=== PATIENT | female | born 1945 | race Caucasian/White ===

== ENCOUNTER 2016-08-17 14:49 | Inpatient (IN) | payer OTHER ==
[~2016-08-17] VITALS: Ht 165.1 cm; Wt 81.6 kg
--- NOTE | ~2016-08-17 | CNG ---
[facility] [place] [address] CYTO-NONGYN REPORT PROCEDURE Name: JUANA MADDOX Room #: 442-P ADM IN M.R.#: [id number] Admission: 08/17/16 Date of : 47 Discharge: Report #: [id number] Path Case #: [id number] CYTOPATHOLOGY REPORT COLLECTION DATE: 08/18/2016 RECEIVED DATE: 08/18/2016 SUBMITTING PHYS: Dr. Viktoriya Hu OTHER PHYS: Dr. Jose Alfredo Foss CLINICAL HISTORY: SOA, Pneumonia. SPECIMEN(S) RECEIVED: A.Pleural fluid * * * * * * * * * * * * FINAL DIAGNOSIS: A. Pleural fluid: - No malignant cells identified. Normal and reactive mesothelial cells and predominantly chronic inflammation are present in background debris. COMMENT: Properly controlled immunohistochemical stains are performed on the cell block. Block A1 Calretinin - stains rare scattered mesothelial cells. CD68 - highlights the scattered histocytes. BerEP4 - nonreactive. (CLW:pit; 08/20/2016) PATHOLOGIST: Ivette Callaway M.D. REPORT ELECTRONICALLY SIGNED BY: Ivette Callaway M.D. DATE/TIME: 08/20/2016 23:04 * * * * * * * * * * * * GROSS PATHOLOGY: A. Pleural fluid: The specimen is submitted unfixed, labeled "Juana Maddox". Received by the Cytology Department is 25 mL of cloudy red orange fluid. One ThinPrep slide and a cell block were prepared. (clt 08.18.2016) CLUBHOUSE MANAGER(S): SHAHRAM Nava([facility] INITIAL CPT CODE(S): A; 66181, 61703, 39121, 18508, 79935 Professional services performed by [facility] at [facility] [address] [place] [address] [facility] [address] [place] [address] CYTO-NONGYN REPORT PROCEDURE Name: JUANA MADDOX Reymundo Room #: 442-P ADM IN M.R.#: [id number] Admission: 08/17/16 Date of : 47 Discharge: Report #: [id number] Path Case #: [id number] Technical services performed by [facility] at [address] [place] [address], [address], [place] [address]. [address], [facility] [address] [place] [address] PHONE: [phone] DIRECTOR: Isidro Roa M.D. * * * END OF REPORT * * *
--- NOTE | ~2016-08-17 | CATHLAB ---
[facility] [address] [place] [address] INVASIVE PROCEDURE REPORT Name: JUANITO YODER Room #: 442-P [facility] IN [facility].#: [id number] Admission: 08/17/16 Attend Phys: Jose Alfredo Foss, Discharge: Date of : 47 Date of Service: 08/20/16 1540 Report #: [id number] THIS REPORT FOR: //name// APPROVED REPORT Patient Details Patient Status: In-Patient Room #: The patient is a 71 year-old female Event Personnel Srinivasa Spear Planning Analyst, Mariana Moran RTR Monitor, Drea Shah RN Monitor, Rhonda Nolasco [place], Ariel RN shearer screen measurer and trimmer Performed Art Access - R femoral artery* 12662 Initial Mod Sed Same Phys/QHP Gr5y [id number] Left Heart Cath Coronaries, Bypass Grafts [id number] LHCCORCABG Hemostasis with Manual pressure Indication Unstable angina , Chest pain Risk Factors Hypercholesterolemia, Coronary Artery DiseaseHypertension Procedure Narrative The patient was brought urgently to the Cardiac Catheterization Laboratory and was prepped and draped in a sterile manner. The Right Groin^ was infiltrated with 1% Lidocaine subcutaneous anesthesia. A PINNACLE 4FR Sheath #[id number] sheath was inserted into the RFA^. Coronary angiography was performed using coronary diagnostic catheters. The right coronary system was accessed and visualized with a JR 4 catheter. The left coronary system was accessed and visualized with a JL 5 catheter. The left ventricle was accessed and visualized with a MPA catheter. Left ventricular/Aortic Valve gradient assessed . Hemostasis was obtained with manual pressure following sheath removal without any complications. The patient tolerated the procedure well and there were no complications associated with the procedure. There was no hematoma. Intraoperative Conscious Sedation Sedation start time: 112 Case end Time: 114 Fentanyl 25.0 mcg Versed 1.0 mg [facility] [address] [place] [address] INVASIVE PROCEDURE REPORT Name: JUANITO YODER Room #: 442-P [facility]#: [id number] Admission: 08/17/16 Attend Phys: Jose Alfredo Foss, Discharge: Date of : 47 Date of Service: 08/20/16 1540 Report #: [id number] Fluoro Time: 5.40 minutes Dose: DAP 6917.00 cGycm2 947 mGy Contrast Type and Amount: Visipaque 105 ml Coronary Angiography The patient's coronary anatomy is right dominant. Diagnostic Cath Left Main Moderate distal disease LAD Total occlusion in proximal segment. Patent MATHIAS graft to first diagonal artery and mid LAD, no evidence for occlusive disease within mammary artery. Circumflex Total occlusion in proximal segment. Patent SVG to OM1, no evidence for occlusive disease within vein graft. Partial retrograde filling of distal circumflex. Right Coronary Total occlusion in proximal segment. Total occlusion of vein graft to distal RCA. The distal RCA and branches are partially filled via collateral circulation from the left coronary artery. Hemodynamics The aortic pressure is 124/53 mmHg with a mean of 85 mmHg. The left ventricular pressure is 130/14 mmHg with a mean of mmHg. The left ventricular end diastolic pressure is 24 mmHg. There was no gradient across the aortic valve upon pullback. Pullback from the left ventricle to the aorta revealed no gradient across the aortic valve. Conclusion Coronary anatomy as described above. Recommend medical therapy. Recommendations Medical Therapy <ELECTRONICALLY SIGNED> By: Srinivasa Spear MD 08/20/16 1540 1540 1540 Srinivasa Spear MD /INF
--- NOTE | ~2016-08-17 | EKG ---
[address] [address] ELECTROCARDIOGRAM REPORT Name: JUANITO YODER Room #: 442-[facility] IN ..#: [id number] Admission: 08/17/16 Attend Phys: Jose Alfredo Foss MD Discharge: Date of : 47 Report #: [id number] THIS REPORT FOR: //name// 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 : 1945 Requested By: Bonita Jesus Order Number: [id number] MD: Guerrero Glez Measurements Intervals [place] Rate: 69 P: -26 [place]: 184 QRS: -1 QRSD: 105 T: 154 QT: 460 QTc: 493 Interpretive Statements Sinus rhythm Abnormal T, consider ischemia, lateral leads Compared to ECG 10/08/2015 17:28:33 Prolonged QT interval no longer present T-wave abnormality still present Possible ischemia still present Electronically Signed On 08-18-2016 13:24:23 CDT by Guerrero Glez [email or web address] <ELECTRONICALLY SIGNED> By: Guerrero Glez MD 08/18/16 1324 1034 1034 Guerrero Glez MD /EPI
--- NOTE | ~2016-08-17 | H ---
[facility] [place] [address] HISTORY AND PHYSICAL Name: JUANITO YODER Room #: 442-P ADM IN .R.#: [id number] Admission: 08/17/16 Attend Phys: Jose Alfredo Foss MD Discharge: Date of : 47 Report #: [id number] THIS REPORT FOR: //name// CC: Jose Alfredo Foss DATE OF SERVICE: 08/17/2016 CHIEF COMPLAINT: Continued shortness of breath with even smaller amounts with exertion. HISTORY OF PRESENT ILLNESS: The patient went to [facility] on July the because of shortness of breath. She was found to have a right-sided community-acquired pneumonia and treated appropriately and did definitely improve, although she was still somewhat limited at the time of discharge. As part of her evaluation, an echocardiogram showed normal left ventricular size and function with 60% ejection fraction and mild hypokinesis of the basal mid inferior wall. Wall thickness was moderately increased and findings were consistent with a grade 2 diastolic dysfunction. The left atrium was moderately dilated. The right atrium was mildly dilated and right ventricular function and geometry was normal. She was discharged on albuterol inhaler and azithromycin. She completed those medications, but did not feel really very much better and then presented to my office on 08/14/2016. She declined being readmitted to the hospital and was satisfied by having her Proventil/Ventolin HFA inhaler and azithromycin refilled. However, this morning, on 08/17/2016, she reported progressive shortness of breath with exertion to the dialysis facility staff who in turn notified us. She is now willing to go to the hospital for evaluation without any further resistance. The dialysis staff was asked to remove more fluid than ususal, because: a chest x-ray obtained 08-14-16 compared to the hoptal discharge film showed persistence of the right baseline infiltrate and the new development of a moderate-sized left-sided pleural effusion, a matter that may contribute to her sensation of exertional dyspnea. PAST MEDICAL HISTORY: Significant for a Wallstent in the right superior vena cava for unclear indications in the distant past. Type 2 diabetes with complications; nephropathy, retinopathy and neuropathy; coronary artery bypass grafting approximately 10 years ago, with April 2015 showing placement of a drug-eluting stent at [facility]. She has an ulcer on her right first toe as well as a similar ulcer on her right fifth toe. She has fully functioning left upper arm AV fistula site. She has depression and anxiety along with an exacerbation of her COPD. She is a current smoker. [address] [address] HISTORY AND PHYSICAL Name: JUANITO YODER Room #: 442-P [facility] IN ..#: [id number] Admission: 08/17/16 Attend Phys: Jose Alfredo Foss MD Discharge: Date of : 47 Report #: [id number] She is noncompliant and often doesn't take her insulin. REVIEW OF SYSTEMS: Significant for the HPI with progressive shortness of breath with exertion. She reports some healing of an ulcer in the lateral distal portion of the right foot. SOCIAL HISTORY: She wishes not to be resuscitated. She does not drink alcohlo. She continues to smoke. She lives in her daughter's home. CURRENT MEDICATIONS: Darbepoetin jamar, doxercalciferol (Hectorol) and Ferolact are given IV in the dialysis clinic. Amlodipine 5 mg daily, 81 mg aspirin daily, Nephrocaps daily, calcium carbonate and acid pills, carvedilol 25 mg 1-1/2 tablets twice daily, Sensipar (cinacalcet) 30 mg once daily, clopidogrel 75 mg daily, diphenhydramine 50 mg at bedtime as needed for sleep, fluticasone propionate 50 mcg 2 pills once a day, insulin NPH isophane and regular insulin (70/30) by sliding scale, isosorbide mononitrate 30 mg one daily, Synthroid/levothyroxine 25 mcg one daily, loperamide as needed, lorazepam 1mg for anxiety, nitroglycerin tablets as needed, pravastatin 40 mg once daily, quetiapine 200 mg at bedtime and sertraline 100 mg once daily. PHYSICAL EXAMINATION: GENERAL: Exam shows a 71-year-old woman appearing older than her stated age. She is in no acute distress. Alert and oriented. HEENT: Grossly unremarkable. Chest: lungs have an occassional rhonchus, and breath sounds are diminished. Heart: S1S2 WNL and regular Abdomen: Soft and nontender, without hepatospleenomegaly. EXT: mild tight edema. Right foot wound was photographed by nursing staff. DIAGNOSTIC DATA: Chest x-ray shows new development of a left pleural effusion, along with persistence of the right lower lobe atelectasis/infiltrate. ASSESSMENT: 0. Multifactorial dyspnea on exertion. 1. Persistent infiltrate in the right lower base. 2. New left-sided pleural effusion. 3. Quite possibly the patient has a stable left ventricular cardiac function. 4. Exacerbation of chronic obstructive pulmonary disease. 5. CAD s/p CABG and subsequent stents. 5. Long-standing open right 5th MT ulcer. 6. Noncompliance - the patient often doesn't take her insulin on her. 7. Dialysis. 8. DM with complications of nephropathy, neuropathy, and retinopathy. 9. Other problems in PMH above. [facility] [address] [place] [address] HISTORY AND PHYSICAL Name: JUANITO YODER Room #: 442-P ADM IN M.R.#: [id number] Admission: 08/17/16 Attend Phys: Jose Alfredo Foss MD Discharge: Date of : 47 Report #: [id number] 10. Wallstent right upper SVC. PLAN: She is admitted. She is being observed on telemetry. Further evaluation of pleural fluid in the left space will be obtained with a CT. She will be seen in cardiovascular medicine as well as pulmonary medicine. She will be followed by the nephrology service as well. Wound care service is consulted. She wishes a DNR. By: [id number] Jose Alfredo Foss MD /nt
--- NOTE | ~2016-08-17 | 2DMMODE ---
[facility] [address] [facility] [employer] [place] [address] 2 D/M-MODE ECHOCARDIOGRAM Name: JUANITO YODER Reymundo Room #: 442-P ADM IN .R.#: [id number] Admission: 08/17/16 Attend Phys: Jose Alfredo Foss, Discharge: Date of : 47 Date of Service: 08/18/16 1244 Report #: [id number] THIS REPORT FOR: //name// APPROVED REPORT Study performed: 08/18/2016 11:20:05 EXAM: Comprehensive 2D, Doppler, and color-flow Echocardiogram Patient Location: Echo lab Room #: 442 Other Information Study Quality: Adequate Indications Dyspnea Hx: DM, CABG, COPD 2D Dimensions RVDd: 38.99 mm LVEF(%): 53.79 (>50%) IVSd: 13.81 (7-11mm) LVOT Diam: 20.34 (18-24mm) LVDd: 49.15 mm PWd: 14.17 (7-11mm) Ascending Ao: 40.18 (22-36mm) LVDs: 35.46 (25-40mm) Aortic Root: 34.46 mm Mora's LVEF: 53.79 % Volumes Left Atrial Volume (Systole) Single Plane 4CH: 75.83 mL Single Plane 2CH: 72.76 mL LA ESV Index: 40.00 mL/m2 Aortic Valve AoV Peak Melvin.: 1.85 m/s AO Peak Gr.: 13.76 mmHg LVOT Max P.53 mmHg LVOT Max V: 1.18 m/s MILAGROS Vmax: 2.06 cm2 Mitral Valve E/A Ratio: 1.3 MV Decel. Time: 194.86 ms MV E Max Melvin.: 1.15 m/s MV A Melvin.: 0.86 m/s MV PHT: 56.51 ms [facility] [place] [address] 2 D/M-MODE ECHOCARDIOGRAM Name: JUANITO YODER Room #: 442-P [facility].#: [id number] Admission: 08/17/16 Attend Phys: Jose Alfredo Foss, Discharge: Date of : 47 Date of Service: 08/18/16 1244 Report #: [id number] IVRT: 69.20 ms Pulmonary Valve PV Peak Melvin.: 1.06 m/s PV Peak Gr.: 4.50 mmHg Pulmonary Vein P Vein S: 0.39 m/s P Vein D: 0.52 m/s P Vein S/D Ratio: 0.75 Tricuspid Valve TR Peak Melvin.: 3.20 m/s RAP Estimate: 5.00 mmHg TR Peak Gr.: 41.04 mmHg PA Pressure: 46.00 mmHg Left Ventricle The left ventricle is normal size. Mild concentric left ventricular hypertrophy. Left ventricular systolic function is normal. LVEF is 60%. Grade II - pseudonormal filling dynamics. Right Ventricle Right ventricle is mildly dilated. Right ventricular systolic function is grossly normal. Atria Left atrium is moderately dilated. Right atrium is mildly dilated. Aortic Valve Aortic valve is calcified. Trace aortic regurgitation. There is no aortic valvular stenosis. Mitral Valve Mitral valve leaflets are thickened and calcified. Mild mitral regurgitation. No evidence of mitral valve stenosis. Tricuspid Valve The tricuspid valve is normal in structure. There is moderate tricuspid regurgitation. The right atrial pressure is estimated at 5 mmHg. There is moderate pulmonary hypertension with an estimated PAP of 45-50mmHg. Pulmonic Valve The pulmonary valve is normal in structure. Mild pulmonic regurgitation. [facility] [address] [place] [address] 2 D/M-MODE ECHOCARDIOGRAM Name: PARESH,JUANITO J Room #: 442-P [facility] IN .R.#: [id number] Admission: 08/17/16 Attend Phys: Jose Alfredo Foss, Discharge: Date of : 47 Date of Service: 08/18/16 1244 Report #: [id number] Great Vessels The aortic root is normal in size. The ascending aorta is mildly dilated. IVC is normal in size and collapses >50% with inspiration. Pericardium There is no pericardial effusion. Right pleural effusion noted. <Conclusion> The left ventricle is normal size. Left ventricular systolic function is normal. Grade II - pseudonormal filling dynamics. Mild concentric left ventricular hypertrophy. Right ventricle is mildly dilated. Left atrium is moderately dilated. Right atrium is mildly dilated. Aortic valve is calcified. There is no aortic valvular stenosis. Mitral valve leaflets are thickened and calcified. Mild mitral regurgitation. There is moderate tricuspid regurgitation. The right atrial pressure is estimated at 5 mmHg. There is moderate pulmonary hypertension with an estimated PAP of 45-50mmHg. <ELECTRONICALLY SIGNED> By: Srinivasa Spear MD 08/18/16 1244 1244 1244 Sriinvasa Spear MD /INF
[~2016-08-17 14:49] MED LIST: ALBUTEROL2.5 MG/0.5 IH; ALLEGRA-D 12 H1 EACH PO; ANALGESIC325 MG PO; ASPIR 8181 MG PO; ASPIRIN325 PO; ATIVAN1 MG PO; BENADRYL25 MG PO; BETADINE240 ML TOP; BYSTOLIC 5 MG5 M1 PO; COREG PO; COREG25 MG PO; DUONEB 2.5-0.5 M3 ML INH; FOSRENOL1000 MG PO; IMODIUM MULTI-1 EACH PO; LIPITOR80 MG PO; LISINOPRIL40 MG PO; LISINOPRIL5 MG PO; MEDLISTUNAVAIL; NITROGLYCERIN0.4 MG SL; NOVOLIN 70100 UNIT/2 SQ; NOVOLIN N100 UNIT/3 SUBQ; NOVOLOG100 UNIT/1 SUBQ; PERCOCET 5-3251 EACH; PLAVIX 75 MG TA75 M1 PO; PREDNISONE 10 M10 MG PO; RENAL CAPS SOFTG1 MG PO; RENVELA800 MG PO; SENSIPAR90 MG PO; SEROQUEL 50 MG50 MG PO; SERTRALINE HCL100 MG PO; TRAZODONE 50 MG50 MG OR; TUMS PO; VITAMIN D1000 UNI1 PO; ZEMPLAR2 MCG PO
[2016-08-17 16:40] VITALS: BP 164/56
[2016-08-17] MEDS ORDERED: LEVOTHYROXIN0.025 MG PO (17:56)
[2016-08-17] MEDS ORDERED: IMDUR 30 MG TAB30 M1 PO (17:57)
[2016-08-17 19:44] VITALS: BP 153/61
[2016-08-18 04:29] VITALS: BP 179/76
[2016-08-18 04:59] LABS: HEMATOCRIT 29.6 % (37.0-47.0); HEMOGLOBIN 9.9 gm/dL (12.0-15.0); MCH 31.6 pg (26.0-34.0); MCHC 33.2 g/dL (28.0-37.0); MCV 95.1 fL (80.0-100.0); RBC 3.12 mil/uL (4.20-5.00); RDW 15.1 % (10.5-14.5); WBC 7.2 thou/uL (4.0-11.0)
[2016-08-18 05:09] LABS: ALBUMIN 2.7 g/dL (3.4-5.0); ALKALINE PHOSPHATASE 101 U/L (46-116); ANION GAP 9 mmol/L (7-16); BUN 23 mg/dL (7-18); CALCIUM 8.4 mg/dL (8.5-10.1); CHLORIDE 96 mmol/L (98-107); CO2 31 mmol/L (21-32); CREATININE 3.7 mg/dL (0.6-1.0); GLUCOSE 115 mg/dL (74-106); POTASSIUM 3.6 mmol/L (3.5-5.1); SGOT 12 U/L (15-37); SGPT 14 U/L (30-65); SODIUM 136 mmol/L (136-145); TOTAL BILIRUBIN 0.2 mg/dL (<0.1-1.0); TOTAL PROTEIN 6.6 g/dL (6.4-8.2); TROPONIN-I < 0.04 ng/mL (<0.04-0.07)
[2016-08-18 08:00] VITALS: BP 172/77
[2016-08-18 09:55] LABS: CHOLESTEROL 156 mg/dL (<200); HDL CHOLESTEROL 21 mg/dL (>40); LDL CHOLESTEROL 87 mg/dL (<100); TC:HDL 7.4 Ratio (Not establshd); TRIGLYCERIDE 241 mg/dL (<150); VLDL 48 mg/dL (<40)
[2016-08-18 11:22] LABS: APTT 29.4 Seconds (24.5-32.8); PROTIME 10.8 Seconds (9.3-11.4)
[2016-08-18 13:53] LABS: CLARITY CLOUDY; COLOR ORANGE; TOTAL VOLUME 53 mL
[2016-08-18 14:16] LABS: BF NUCLEATED CELLS 1120; BF RBC 10928
[2016-08-18 14:35] LABS: MANUAL DIFF YES
[2016-08-18 14:36] LABS: BF MACROPHAGE 23; BF NEUTROPHILS 18
[2016-08-18 16:00] VITALS: BP 138/61
[2016-08-18 20:25] VITALS: BP 137/66
[2016-08-19 04:50] VITALS: BP 130/74
[2016-08-19 05:44] LABS: HEMATOCRIT 27.7 % (37.0-47.0); HEMOGLOBIN 9.2 gm/dL (12.0-15.0); MCH 31.6 pg (26.0-34.0); MCHC 33.3 g/dL (28.0-37.0); MCV 94.9 fL (80.0-100.0); RBC 2.92 mil/uL (4.20-5.00); RDW 15.3 % (10.5-14.5); WBC 6.6 thou/uL (4.0-11.0)
[2016-08-19 05:59] LABS: ALBUMIN 2.6 g/dL (3.4-5.0); CALCIUM 7.7 mg/dL (8.5-10.1); PHOSPHORUS 5.7 mg/dL (2.5-4.9); POTASSIUM 3.8 mmol/L (3.5-5.1)
[2016-08-19 06:00] LABS: CREATININE 5.7 mg/dL (0.6-1.0)
[2016-08-19 12:09] LABS: BODY FLUID ALBUMIN 2.2 g/dL (()); BODY FLUID AMYLASE 41 U/L (()); BODY FLUID GLUCOSE 238 mg/dL (()); BODY FLUID LDH 90 IU/L (()); BODY FLUID PROTEIN 3.6 g/dL (())
[2016-08-19 16:38] VITALS: BP 114/59
[2016-08-19 20:07] LABS: HEP B SURFACE Ab(ANTI-HBS Non Reactive (())
[2016-08-19 20:22] VITALS: BP 133/58
[2016-08-20 03:14] LABS: GLYCOHEMOGLOBIN (HGB A1C) 8.3 % (4.8-5.6)
[2016-08-20 05:40] VITALS: BP 127/63
[2016-08-20 06:39] LABS: HEMATOCRIT 27.7 % (37.0-47.0); HEMOGLOBIN 9.3 gm/dL (12.0-15.0); MCH 31.5 pg (26.0-34.0); MCHC 33.5 g/dL (28.0-37.0); RBC 2.94 mil/uL (4.20-5.00); RDW 15.2 % (10.5-14.5); WBC 5.9 thou/uL (4.0-11.0)
[2016-08-20 06:46] LABS: CALCIUM 7.9 mg/dL (8.5-10.1)
[2016-08-20 06:47] LABS: CREATININE 3.5 mg/dL (0.6-1.0)
[2016-08-20 07:40] VITALS: BP 131/61
[2016-08-20 12:30] VITALS: BP 138/58
[2016-08-20 17:09] VITALS: BP 154/69
[2016-08-20 19:40] VITALS: BP 126/52
[2016-08-21 01:55] VITALS: BP 137/55
[2016-08-21 04:40] VITALS: BP 134/52
[2016-08-21 05:56] LABS: HEMATOCRIT 28.2 % (37.0-47.0); HEMOGLOBIN 9.5 gm/dL (12.0-15.0); MCH 31.7 pg (26.0-34.0); MCHC 33.5 g/dL (28.0-37.0); MCV 94.7 fL (80.0-100.0); RBC 2.98 mil/uL (4.20-5.00); RDW 14.8 % (10.5-14.5); WBC 5.3 thou/uL (4.0-11.0)
[2016-08-21 06:12] LABS: ALBUMIN 2.6 g/dL (3.4-5.0); CALCIUM 8.3 mg/dL (8.5-10.1); PHOSPHORUS 5.5 mg/dL (2.5-4.9); POTASSIUM 4.8 mmol/L (3.5-5.1)
[2016-08-21 06:13] LABS: CREATININE 5.4 mg/dL (0.6-1.0)
[2016-08-21 11:35] VITALS: BP 160/60
[2016-08-21 15:40] VITALS: BP 143/60
[2016-08-21] MEDS ORDERED: AUGMENTIN 500-1 EACH PO (18:09)
[2016-08-21] MEDS ORDERED: SEROQUEL 50 MG50 MG PO (18:09)
[2016-08-21] MEDS ORDERED: IMDUR 30 MG TAB30 M1 PO (18:09)
[2016-08-21] MEDS ORDERED: NOVOLOG MI100 UNIT/M INJECTION (18:25)
[2016-08-21 20:04] VITALS: BP 143/60
[2016-08-21 20:32] VITALS: BP 137/52
== END 2016-08-22 02:00 | disposition home or self-care (01) | DRG 286 ==
LOC: 4S 14:49
PROVIDERS: Internal Medicine; Internal Medicine Nephrology; Internal Medicine Pulmonary Disease; Nurse Practitioner Gerontology
PROC: BB4BZZZ Ultrasonography of Pleura (ICD-10-PCS; 2016-08-18)
PROC: 0W993ZZ Drainage of Right Pleural Cavity, Percutaneous Approach (ICD-10-PCS; 2016-08-18)
PROC: 5A1D60Z (ICD-10-PCS; 2016-08-19)
PROC: B2111ZZ Fluoroscopy of Multiple Coronary Arteries using Low Osmolar Contrast (ICD-10-PCS; principal; 2016-08-20)
PROC: 4A023N7 Measurement of Cardiac Sampling and Pressure, Left Heart, Percutaneous Approach (ICD-10-PCS; principal; 2016-08-20)
PROC: B21F1ZZ Fluoroscopy of Other Bypass Graft using Low Osmolar Contrast (ICD-10-PCS; principal; 2016-08-20)
DX: I25.110 Atherosclerotic heart disease of native coronary artery with unstable angina pectoris (principal); N18.6 End stage renal disease; J18.1 Lobar pneumonia, unspecified organism; E43 Unspecified severe protein-calorie malnutrition; J44.0 Chronic obstructive pulmonary disease with (acute) lower respiratory infection; I12.0 Hypertensive chronic kidney disease with stage 5 chronic kidney disease or end stage renal disease; J90 Pleural effusion, not elsewhere classified; J98.11 Atelectasis; J44.1 Chronic obstructive pulmonary disease with (acute) exacerbation; E11.40 Type 2 diabetes mellitus with diabetic neuropathy, unspecified; E11.319 Type 2 diabetes mellitus with unspecified diabetic retinopathy without macular edema; E78.5 Hyperlipidemia, unspecified; F17.210 Nicotine dependence, cigarettes, uncomplicated; E11.51 Type 2 diabetes mellitus with diabetic peripheral angiopathy without gangrene; E11.22 Type 2 diabetes mellitus with diabetic chronic kidney disease; D63.8 Anemia in other chronic diseases classified elsewhere; E11.621 Type 2 diabetes mellitus with foot ulcer; Z68.30 Body mass index [BMI] 30.0-30.9, adult; Z95.1 Presence of aortocoronary bypass graft; Z98.62 Peripheral vascular angioplasty status; Z91.19 Patient's noncompliance with other medical treatment and regimen; Z88.6 Allergy status to analgesic agent; Z88.8 Allergy status to other drugs, medicaments and biological substances; Z79.4 Long term (current) use of insulin; Z79.82 Long term (current) use of aspirin; Z79.899 Other long term (current) drug therapy; Z99.81 Dependence on supplemental oxygen; Z99.2 Dependence on renal dialysis; Z66 Do not resuscitate
CPT/HCPCS: 10100; 32100

== ENCOUNTER → 2016-09-10 | Outpatient (CLI) | payer OTHER ==
[~2016-09-10] MED LIST changes: +AUGMENTIN 500-1 EACH PO; +IMDUR 30 MG TAB30 M1 PO; +LEVOTHYROXIN0.025 MG PO; +NOVOLOG MI100 UNIT/M INJECTION
== END ==
LOC: HYPER 06:54
DX: E11.621 Type 2 diabetes mellitus with foot ulcer (principal); L97.512 Non-pressure chronic ulcer of other part of right foot with fat layer exposed; E11.40 Type 2 diabetes mellitus with diabetic neuropathy, unspecified; E11.311 Type 2 diabetes mellitus with unspecified diabetic retinopathy with macular edema; E11.69 Type 2 diabetes mellitus with other specified complication; M86.9 Osteomyelitis, unspecified; E11.22 Type 2 diabetes mellitus with diabetic chronic kidney disease; N18.6 End stage renal disease; I25.10 Atherosclerotic heart disease of native coronary artery without angina pectoris; E11.51 Type 2 diabetes mellitus with diabetic peripheral angiopathy without gangrene; M19.90 Unspecified osteoarthritis, unspecified site; F32.9 Major depressive disorder, single episode, unspecified; F17.200 Nicotine dependence, unspecified, uncomplicated; F41.9 Anxiety disorder, unspecified; Z95.1 Presence of aortocoronary bypass graft; Z99.2 Dependence on renal dialysis; Z86.14 Personal history of Methicillin resistant Staphylococcus aureus infection; Z96.612 Presence of left artificial shoulder joint; Z90.710 Acquired absence of both cervix and uterus; Z72.89 Other problems related to lifestyle

== ENCOUNTER → 2016-10-14 | Outpatient (CLI) | payer OTHER | LOC: HYPER 09-24 07:04 | DX: E11.621 Type 2 diabetes mellitus with foot ulcer (principal); L97.512 Non-pressure chronic ulcer of other part of right foot with fat layer exposed; E11.40 Type 2 diabetes mellitus with diabetic neuropathy, unspecified; E11.311 Type 2 diabetes mellitus with unspecified diabetic retinopathy with macular edema; E11.22 Type 2 diabetes mellitus with diabetic chronic kidney disease; N18.6 End stage renal disease; Z99.2 Dependence on renal dialysis; E11.69 Type 2 diabetes mellitus with other specified complication; M86.68 Other chronic osteomyelitis, other site; F32.9 Major depressive disorder, single episode, unspecified; F41.9 Anxiety disorder, unspecified; I25.10 Atherosclerotic heart disease of native coronary artery without angina pectoris; E11.51 Type 2 diabetes mellitus with diabetic peripheral angiopathy without gangrene; M19.90 Unspecified osteoarthritis, unspecified site; F17.210 Nicotine dependence, cigarettes, uncomplicated; Z86.14 Personal history of Methicillin resistant Staphylococcus aureus infection; Z95.1 Presence of aortocoronary bypass graft; Z90.710 Acquired absence of both cervix and uterus; Z72.89 Other problems related to lifestyle ==

== ENCOUNTER → 2016-11-11 | Outpatient (CLI) | payer OTHER | LOC: HYPER 07:06 | DX: E11.621 Type 2 diabetes mellitus with foot ulcer (principal); L97.512 Non-pressure chronic ulcer of other part of right foot with fat layer exposed; E11.40 Type 2 diabetes mellitus with diabetic neuropathy, unspecified; E11.311 Type 2 diabetes mellitus with unspecified diabetic retinopathy with macular edema; E11.22 Type 2 diabetes mellitus with diabetic chronic kidney disease; N18.6 End stage renal disease; E11.69 Type 2 diabetes mellitus with other specified complication; M86.9 Osteomyelitis, unspecified; I25.10 Atherosclerotic heart disease of native coronary artery without angina pectoris; E11.51 Type 2 diabetes mellitus with diabetic peripheral angiopathy without gangrene; M19.90 Unspecified osteoarthritis, unspecified site; F17.210 Nicotine dependence, cigarettes, uncomplicated; F32.9 Major depressive disorder, single episode, unspecified; F41.9 Anxiety disorder, unspecified; Z86.14 Personal history of Methicillin resistant Staphylococcus aureus infection; Z99.2 Dependence on renal dialysis; Z95.1 Presence of aortocoronary bypass graft; Z96.612 Presence of left artificial shoulder joint; Z90.710 Acquired absence of both cervix and uterus; Z72.89 Other problems related to lifestyle ==

== ENCOUNTER → 2016-11-25 | Outpatient (CLI) | payer OTHER | LOC: RAD 12:13 | DX: J90 Pleural effusion, not elsewhere classified (principal); J98.11 Atelectasis ==

== ENCOUNTER → 2016-11-25 | Outpatient (CLI) | payer OTHER | LOC: HYPER 07:07 | DX: E11.621 Type 2 diabetes mellitus with foot ulcer (principal); L97.512 Non-pressure chronic ulcer of other part of right foot with fat layer exposed; E11.40 Type 2 diabetes mellitus with diabetic neuropathy, unspecified; E11.319 Type 2 diabetes mellitus with unspecified diabetic retinopathy without macular edema; E11.69 Type 2 diabetes mellitus with other specified complication; M86.9 Osteomyelitis, unspecified; I25.10 Atherosclerotic heart disease of native coronary artery without angina pectoris; E11.51 Type 2 diabetes mellitus with diabetic peripheral angiopathy without gangrene; M19.90 Unspecified osteoarthritis, unspecified site; E11.22 Type 2 diabetes mellitus with diabetic chronic kidney disease; N18.6 End stage renal disease; F17.210 Nicotine dependence, cigarettes, uncomplicated; F41.9 Anxiety disorder, unspecified; F32.9 Major depressive disorder, single episode, unspecified; Z99.2 Dependence on renal dialysis; Z96.612 Presence of left artificial shoulder joint; Z86.14 Personal history of Methicillin resistant Staphylococcus aureus infection; Z95.1 Presence of aortocoronary bypass graft; Z90.710 Acquired absence of both cervix and uterus; Z72.89 Other problems related to lifestyle ==

== ENCOUNTER → 2016-12-23 | Outpatient (CLI) | payer OTHER | LOC: HYPER 07:11 | DX: E11.621 Type 2 diabetes mellitus with foot ulcer (principal); L97.512 Non-pressure chronic ulcer of other part of right foot with fat layer exposed; E11.40 Type 2 diabetes mellitus with diabetic neuropathy, unspecified; E11.22 Type 2 diabetes mellitus with diabetic chronic kidney disease; N18.6 End stage renal disease; Z99.2 Dependence on renal dialysis; E11.319 Type 2 diabetes mellitus with unspecified diabetic retinopathy without macular edema; E11.69 Type 2 diabetes mellitus with other specified complication; M86.8X8 Other osteomyelitis, other site; F32.9 Major depressive disorder, single episode, unspecified; F41.9 Anxiety disorder, unspecified; I25.10 Atherosclerotic heart disease of native coronary artery without angina pectoris; E11.51 Type 2 diabetes mellitus with diabetic peripheral angiopathy without gangrene; M19.90 Unspecified osteoarthritis, unspecified site; Z86.14 Personal history of Methicillin resistant Staphylococcus aureus infection; F17.210 Nicotine dependence, cigarettes, uncomplicated; Z72.89 Other problems related to lifestyle ==

== ENCOUNTER → 2017-01-26 | Outpatient (CLI) | payer OTHER | LOC: RAD 12:07 | DX: J90 Pleural effusion, not elsewhere classified (principal); J98.11 Atelectasis ==

== ENCOUNTER → 2017-02-25 | Outpatient (CLI) | payer OTHER ==
[~2017-02-25] MED LIST changes: +LEVAQUIN 500 M500 M3 PO; +PREDNISONE50 MG PO; +PROAIR HFA8.5 GM INH; +TUSSIONEX PENN115 ML PO
== END ==
LOC: HYPER 01-12 06:45
DX: E11.621 Type 2 diabetes mellitus with foot ulcer (principal); L97.512 Non-pressure chronic ulcer of other part of right foot with fat layer exposed; E11.40 Type 2 diabetes mellitus with diabetic neuropathy, unspecified; E11.22 Type 2 diabetes mellitus with diabetic chronic kidney disease; N18.6 End stage renal disease; E11.319 Type 2 diabetes mellitus with unspecified diabetic retinopathy without macular edema; E11.69 Type 2 diabetes mellitus with other specified complication; M86.9 Osteomyelitis, unspecified; I25.10 Atherosclerotic heart disease of native coronary artery without angina pectoris; S01.80XA Unspecified open wound of other part of head, initial encounter; E11.51 Type 2 diabetes mellitus with diabetic peripheral angiopathy without gangrene; M19.90 Unspecified osteoarthritis, unspecified site; F32.9 Major depressive disorder, single episode, unspecified; F41.9 Anxiety disorder, unspecified; F17.210 Nicotine dependence, cigarettes, uncomplicated; Z99.2 Dependence on renal dialysis; Z95.1 Presence of aortocoronary bypass graft; Z96.612 Presence of left artificial shoulder joint; Z90.710 Acquired absence of both cervix and uterus; Z72.89 Other problems related to lifestyle; X58.XXXA Exposure to other specified factors, initial encounter; Y93.89 Activity, other specified; Y92.89 Other specified places as the place of occurrence of the external cause

== ENCOUNTER → 2017-03-22 | Outpatient (CLI) | payer OTHER | LOC: HYPER 03-18 15:41 | DX: E11.621 Type 2 diabetes mellitus with foot ulcer (principal); L97.512 Non-pressure chronic ulcer of other part of right foot with fat layer exposed; S01.80XD Unspecified open wound of other part of head, subsequent encounter; E11.40 Type 2 diabetes mellitus with diabetic neuropathy, unspecified; E11.311 Type 2 diabetes mellitus with unspecified diabetic retinopathy with macular edema; E11.69 Type 2 diabetes mellitus with other specified complication; M86.8X7 Other osteomyelitis, ankle and foot; E11.51 Type 2 diabetes mellitus with diabetic peripheral angiopathy without gangrene; I25.10 Atherosclerotic heart disease of native coronary artery without angina pectoris; N18.6 End stage renal disease; M19.90 Unspecified osteoarthritis, unspecified site; F17.210 Nicotine dependence, cigarettes, uncomplicated; F41.9 Anxiety disorder, unspecified; F32.9 Major depressive disorder, single episode, unspecified; Z90.710 Acquired absence of both cervix and uterus; Z72.89 Other problems related to lifestyle; Z99.2 Dependence on renal dialysis; X58.XXXD Exposure to other specified factors, subsequent encounter ==

== ENCOUNTER 2017-05-15 03:01 | Emergency (ER) | payer OTHER ==
[~2017-05-15] VITALS: Ht 165.1 cm; Wt 81.7 kg
[~2017-05-15 03:01] MED LIST changes: -LEVAQUIN 500 M500 M3 PO; -PREDNISONE50 MG PO; -PROAIR HFA8.5 GM INH; -TUSSIONEX PENN115 ML PO
[2017-05-15 03:37] LABS: ABSOLUTE NEUTROPHILS 7.4 thou/uL (1.4-8.2); BASOPHILS 0.6 % (0.0-2.0); EOSINOPHILS 6.2 % (0.0-3.0); HEMATOCRIT 34.6 % (37.0-47.0); HEMOGLOBIN 11.3 gm/dL (12.0-15.0); MCH 32.3 pg (26.0-34.0); MCHC 32.7 g/dL (28.0-37.0); MCV 98.5 fL (80.0-100.0); PLATELET COUNT 102 thou/uL (150-400); POLYS 80.2 % (36.0-66.0); RBC 3.51 mil/uL (4.20-5.00); RDW 19.6 % (10.5-14.5); WBC 9.3 thou/uL (4.0-11.0)
[2017-05-15 03:44] LABS: ANION GAP 9 mmol/L (7-16); BUN 21 mg/dL (7-18); CALCIUM 8.6 mg/dL (8.5-10.1); CHLORIDE 95 mmol/L (98-107); CO2 29 mmol/L (21-32); CREATININE 3.7 mg/dL (0.6-1.0); GLUCOSE 251 mg/dL (74-106); POTASSIUM 5.1 mmol/L (3.5-5.1); SODIUM 133 mmol/L (136-145)
[2017-05-15 03:53] LABS: TROPONIN-I < 0.04 ng/mL (<0.06)
[2017-05-15] MEDS ORDERED: TUSSIONEX PENN115 ML PO (05:40)
[2017-05-15] MEDS ORDERED: PROAIR HFA8.5 GM INH (05:40)
[2017-05-15] MEDS ORDERED: PREDNISONE50 MG PO (05:40)
[2017-05-15 06:19] VITALS: BP 149/65
== END 2017-05-15 06:21 | disposition home or self-care (01) ==
LOC: ER 03:01
PROVIDERS: Emergency Medicine
DX: J06.9 Acute upper respiratory infection, unspecified (principal); J98.01 Acute bronchospasm; F41.9 Anxiety disorder, unspecified; F32.9 Major depressive disorder, single episode, unspecified; I25.10 Atherosclerotic heart disease of native coronary artery without angina pectoris; E78.5 Hyperlipidemia, unspecified; G62.9 Polyneuropathy, unspecified; I12.0 Hypertensive chronic kidney disease with stage 5 chronic kidney disease or end stage renal disease; E11.22 Type 2 diabetes mellitus with diabetic chronic kidney disease; N18.6 End stage renal disease; E11.42 Type 2 diabetes mellitus with diabetic polyneuropathy; F17.210 Nicotine dependence, cigarettes, uncomplicated; Z86.2 Personal history of diseases of the blood and blood-forming organs and certain disorders involving the immune mechanism; Z90.49 Acquired absence of other specified parts of digestive tract; Z88.5 Allergy status to narcotic agent; Z88.6 Allergy status to analgesic agent; Z88.8 Allergy status to other drugs, medicaments and biological substances

== ENCOUNTER 2017-05-25 20:32 | Inpatient (IN) | payer OTHER ==
[~2017-05-25] VITALS: Ht 165.1 cm; Wt 82.6 kg
--- NOTE | ~2017-05-25 | EKG ---
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 : 1945 Requested By: Jose Alfredo Foss Order Number: [id number] MD: Francisco Jeffery Measurements Intervals [place] Rate: 101 P: 50 [place]: 196 QRS: 13 QRSD: 101 T: 163 QT: 381 QTc: 494 Interpretive Statements Sinus tachycardia Multiple ectopic complexes Nonspecific repol abnormality, diffuse leads Compared to ECG 05/25/2017 20:33:27 [place] shifted rightward junctional rhythm no longer present nonspecific change in the ST and T-wave segments Electronically Signed On 05-30-2017 13:01:09 CDT by Francisco Jeffery [email or web address] <ELECTRONICALLY SIGNED> By: Francisco Jeffery MD, [facility] 05/30/17 1301 1703 1703 Francisco Jeffery MD, [facility] /EPI
--- NOTE | ~2017-05-25 | HC ---
[facility] [place] [address] CONSULTATION Name: JUANITO YODER Room #: 236-P [facility] IN ..#: [id number] Admission: 05/25/17 Attend Phys: Jose Alfredo Foss MD Discharge: Date of : 47 Report #: [id number] THIS REPORT FOR: //name// CC: Jose Alfredo Foss DATE OF SERVICE: 05/26/2017 INFECTIOUS DISEASE CONSULTATION REASON FOR CONSULTATION: Possible left lower lobe pneumonia. HISTORY OF PRESENT ILLNESS: A 72-year-old white woman admitted through the Emergency Room with history of feeling extremely weak and coughing up some yellowish phlegm. The patient's chest x-ray revealed possible left lower lobe infiltrate, not present on 05/15/2017. The patient apparently failed to show up for her hemodialysis on Wednesday. Today, she had early dialysis and she is feeling better. Denies having fever, nausea, vomiting or diarrhea. DRUG ALLERGIES: ALLERGIC TO CODEINE, SPIRONOLACTONE AND IBUPROFEN. MEDICATIONS: She has received treatment with loading-dose vancomycin and subsequently, vancomycin 500 mg post-hemodialysis 3 times weekly; Levaquin 750 mg single dose, followed by 500 mg every 48 hours and Zosyn 3.375 grams IV every 12 hours. She is also on treatment with lorazepam, carvedilol, Atrovent-albuterol inhalation treatments, insulin lispro, isosorbide mononitrate, folic acid, cinacalcet, p.r.n. glucose and Glucagon. PAST MEDICAL HISTORY: Diabetes mellitus. Chronic kidney disease, on hemodialysis for a number of years. Right arm AV fistula. Coronary artery bypass grafting. Coronary artery stenting. Peripheral vascular disease. Appendectomy, hysterectomy, bilateral tubal ligation and right Achilles tendon repair. Bilateral feet superficial ulceration. Previous history of MRSA and Staphylococcus aureus infection. SOCIAL HISTORY: Continues to smoke. REVIEW OF SYSTEMS: See H and P and as above. PHYSICAL EXAMINATION: GENERAL: A well-developed woman, chronically ill appearing. VITAL SIGNS: Temperature 99, pulse 60, respirations 21, BP 181/86 and O2 saturation 98% on 3 liters oxygen nasal cannula. HEENT: Head normocephalic, atraumatic. Pupils reactive. Conjunctivae normal. Mouth, no oral thrush or leukoplakia. NECK: Supple, no thyromegaly. LUNGS: Crackles in the left base posteriorly. [facility] [address] [place] [address] CONSULTATION Name: JUANITO YODER Room #: 236-P [facility] IN .R.#: [id number] Admission: 05/25/17 Attend Phys: Jose Alfredo Foss MD Discharge: Date of : 47 Report #: [id number] HEART: S1, S2. No gallop or murmur. ABDOMEN: Soft. No masses or megaly. PELVIC AND RECTAL EXAMINATION: Deferred. EXTREMITIES: Pretibial edema, superficial ulcerations on the lateral aspect of left and right foot. The right foot ulceration is chronic in nature. NEUROLOGIC: Grossly within normal limits. LABORATORY DATA: On admission, potassium is 8.6; post-hemodialysis, it is 5. CO2 of 27, BUN 42, creatinine 4.5 and calcium 8.1. Albumin 3 g/dL. NT-proBNP elevated at 26,515. WBC on admission 14.4, hemoglobin 11.2. Repeat CBC today revealed a white blood cell count of 11,600, hemoglobin 11.4 g/dL and platelets on admission 117,000 and repeat today is 94,000. The patient had been thrombocytopenic previously. MICROBIOLOGY DATA: Foot culture pending. Nasal smear negative for rapid influenza A and B. RADIOLOGY EVALUATION: A chest x-ray obtained on 05/15/2017 is clear. Repeat chest x-ray on admission revealed left basilar infiltrate, status post coronary artery bypass grafting and cardiomegaly. ASSESSMENT: 1. Possible left lower lobe pneumonia. 2. End-stage renal disease, on chronic hemodialysis with hyperkalemia, improved post repeat dialysis today. 3. Coronary artery disease, status post coronary artery bypass grafting and coronary artery stenting. 4. Diabetes mellitus. 5. Peripheral vascular disease. 6. Bilateral superficial ulceration feet, right, chronic. SUGGESTIONS AND RECOMMENDATIONS: We will obtain urine for Legionella and Streptococcus pneumoniae antigen if any urine available. ESR, CRP. Continue Levaquin 500 mg every 48 hours, Zosyn 3.375 grams IV every 12 hours and vancomycin 500 mg post hemodialysis 3 times weekly. We will monitor laboratory parameters and we will try to streamline antibiotics as soon as possible. Discussed initial findings with Dr. Kd Lewis, her sausage smoker. Dr. Foss, thank you for requesting my suggestions. <ELECTRONICALLY SIGNED> By: Kevin Glez MD 05/26/17 1237 0933 1138 Kevin Glez MD /nt
--- NOTE | ~2017-05-25 | HC ---
[facility] [place] [address] CONSULTATION Name: JUANITO YODER Room #: 455-P [facility] IN .R.#: [id number] Admission: 05/25/17 Attend Phys: Jose Alfredo Foss MD Discharge: 05/30/17 Date of : 47 Report #: [id number] THIS REPORT FOR: //name// CC: Jose Alfredo Foss DATE OF SERVICE: 05/26/2017 ATTENDING PHYSICIAN: Dr. Foss. REASON FOR CONSULTATION: End-stage renal disease. HISTORY OF PRESENT ILLNESS: This is a 72-year-old patient well known to our service, chronic dialysis patient at [facility]. She missed dialysis yesterday. She had been dialyzed for 3 days. She was incredibly weak, came to the Emergency Room, was found to have potassium of 8.6 with a slow wide complex EKG. She was treated initially medically, then underwent emergency dialysis last evening. She has improved markedly and is seen today in the Intensive Care Unit. She is quite comfortable. She has had a chronic cough, otherwise, as she has been feeling fairly well, the cough has been for several weeks, she did have a chest x-ray 11 days ago that was completely clear. PAST MEDICAL HISTORY: Longstanding diabetes mellitus. She has peripheral neuropathy, end-stage renal disease on dialysis for many years. She has history of previous coronary bypass surgery. She has had chronic bilateral foot ulcers, mostly on the right lateral, some restless legs. HOME MEDICATIONS: Listed include Renvela 800 mg 2 with meals t.i.d., prednisone 5 mg daily, albuterol inhaler, Imdur 30 mg daily, Seroquel 50 mg at bedtime, carvedilol 37.5 mg b.i.d., aspirin 81 mg daily, Plavix 75 mg daily, cinacalcet 90 mg daily, sertraline 100 mg daily and Nephrocaps. SOCIAL HISTORY: She is an ongoing active cigarette smoker. REVIEW OF SYSTEMS: GENERAL: She is somewhat chronically ill. EYES: Her vision is reasonably good. ENT: Hearing okay. Swallows okay. Denies mouth sores or ulcers. ENDOCRINE: Positive for diabetes. RESPIRATORY: Somewhat easily short-winded with exertion, quite chronic. CARDIAC: No chest pains. History of previous coronary bypass and no palpitations. GASTROINTESTINAL: No nausea, vomiting or diarrhea. Appetite okay. GENITOURINARY: Very little in the way of urine. NEUROLOGIC: She has got some numbness in her feet. MUSCULOSKELETAL: No arthritis. Generalized weakness, little bit slow to get around. [facility] [address] [place] [address] CONSULTATION Name: JUANITO YODER Room #: 455-[facility] IN [facility].#: [id number] Admission: 05/25/17 Attend Phys: Jose Alfredo Foss MD Discharge: 05/30/17 Date of : 47 Report #: [id number] PHYSICAL EXAMINATION: GENERAL: This is a chronically ill-appearing woman. SKIN: Unremarkable. SKELETAL: Well-developed, well-nourished, somewhat overweight. HEENT: Extraocular movements are full. Vision intact. No scleral icterus. Hearing intact. Mucous membranes moist. Tongue, buccal mucosa benign. NECK: Supple, no carotid bruits. CHEST: Shows diminished breath sounds at the bases. HEART: Regular. ABDOMEN: Soft and nontender, without bruits, masses or megaly. EXTREMITIES: Show very superficial left lateral foot ulcer and a little bit deeper right lateral foot ulcer. LABORATORY DATA: Potassium was 8.6 yesterday, repeat pending. She underwent dialysis. ASSESSMENT AND PLAN: 1. End-stage renal disease, requiring dialysis on an ongoing basis. 2. Hyperkalemia, now treated medically and then with dialysis, repeat pending. 3. Diabetes mellitus with neuropathy and end-stage renal disease. 4. Coronary artery disease, status post coronary artery bypass. 5. Hypertension. 6. Chronic obstructive pulmonary disease with active cigarette smoking. 7. Diabetic foot ulcers. <ELECTRONICALLY SIGNED> By: Kd Lewis MD 06/14/17 1051 0928 1124 Kd Lewis MD /nt
--- NOTE | ~2017-05-25 | HC ---
[facility] [place] [address] CONSULTATION Name: JUANITO YODER Room #: 455-P [facility] IN .R.#: [id number] Admission: 05/25/17 Attend Phys: Jose Alfredo Foss MD Discharge: 05/30/17 Date of : 47 Report #: [id number] THIS REPORT FOR: //name// CC: Jose Alfredo Foss DATE OF SERVICE: 05/27/2017 PERSONAL PHYSICIAN: Jose Alfredo Foss MD CHIEF COMPLAINT: Foot ulcers. HISTORY OF PRESENT ILLNESS: This is a 72-year-old white female who is well known to me from previous care in the wound clinic who has currently been admitted for pneumonia. While she was here, the patient stated since I saw her in the Wound Center approximately a month ago, she has developed a friction ulceration on the left lateral foot. The patient has a chronic ulceration on her right lateral foot as well. I was asked to see the patient for these wounds while she is here in the hospital. The patient states she has no pain in these wounds because of her neuropathy. The patient denies any other wounds at this time. PAST MEDICAL HISTORY: Significant for diabetes mellitus, chronic kidney disease on hemodialysis, coronary artery disease with previous coronary artery stenting and bypass grafting, peripheral vascular disease. CURRENT MEDICATIONS: Multiple. I reviewed the patient's medication list. DRUG ALLERGIES: CODEINE, SPIRONOLACTONE, IBUPROFEN. SOCIAL HISTORY: The patient still smokes 1/2 to 1 pack of cigarettes daily. FAMILY HISTORY: Not pertinent to current medical condition. REVIEW OF SYSTEMS: CONSTITUTIONAL: The patient denies fever or chills. NEUROLOGIC: The patient complains of overall generalized weakness, but no isolated weakness in arms or legs. EYES: No complaints. ENT: No complaints. CARDIAC: The patient denies chest pain, palpitations, peripheral edema. RESPIRATORY: The patient has cough productive of yellowish sputum with associated mild shortness of breath and wheezing. GASTROINTESTINAL: The patient denies nausea, vomiting, abdominal pain. GENITOURINARY: The patient denies urgency or frequency. MUSCULOSKELETAL: No complaints. SKIN: The patient has bilateral ulcerations on her feet. [facility] [address] [place] [address] CONSULTATION Name: JUANITO YODER Reymundo Room #: 455-P [facility] IN [facility]#: [id number] Admission: 05/25/17 Attend Phys: Jose Alfredo Foss MD Discharge: 05/30/17 Date of : 47 Report #: [id number] PHYSICAL EXAMINATION: VITAL SIGNS: Temperature 36.8, pulse 79, respirations 18, BP 135/80. GENERAL: This is alert and oriented x 3, pleasant, chronically ill appearing white female who is in no obvious distress. HEENT: Normocephalic, atraumatic. Mucous membranes are dry. Pupils are round. Sclerae are white. LUNGS: Coarse with occasional scattered wheeze. HEART: Regular, without murmur. ABDOMEN: Soft, nontender. EXTREMITIES: The patient has 1+ edema bilateral lower extremities. On the dorsal lateral aspect of the right foot is a superficial ulceration which is clean and granulating without signs of infection. No other associated ulcerations noted on the right foot or toes or heel. On the left lateral foot is a new ulceration which is approximately 50% slough, 50% granulation tissue without signs of infection. There is minimal serosanguineous drainage noted without odor. Periulcer is intact without erythema, warmth or cellulitis. NEUROLOGIC: Cranial nerves 2-12 are grossly intact. Motor and sensory grossly intact. LABORATORY VALUES: White count 11.6, hemoglobin 11.4. Sed rate is 45. Albumin is 3.0. IMPRESSION: 1. Friction induced ulceration, left lateral foot without signs of infection. 2. Chronic ulcer, right lateral foot without signs of infection. Bovie is limited breakdown of the fat layer. 3. Diabetes mellitus. 4. End-stage renal disease, on hemodialysis. 5. Moderate protein calorie malnutrition, albumin of 3.0. 6. Pneumonia. 7. History of peripheral arterial disease. PLAN: At this time, we will place Optifoam to both of the ulcerations, changes every 2 days. We will make sure we maximize the patient's oral protein supplementation as per her renal diet. Continue all other current medications and we will continue to follow the patient . <ELECTRONICALLY SIGNED> By: Yohannes Islas MD 05/31/17 0933 1650 13 Yohannes Islas MD /nt
--- NOTE | ~2017-05-25 | EKG ---
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
[~2017-05-25 20:32] MED LIST changes: +PREDNISONE50 MG PO; +PROAIR HFA8.5 GM INH; +TUSSIONEX PENN115 ML PO
[2017-05-25 20:35] VITALS: BP 139/66
[2017-05-25 21:01] LABS: ABSOLUTE NEUTROPHILS 13.1 thou/uL (1.4-8.2); BASOPHILS 0.2 % (0.0-2.0); EOSINOPHILS 0.8 % (0.0-3.0); HEMATOCRIT 35.4 % (37.0-47.0); HEMOGLOBIN 11.2 gm/dL (12.0-15.0); LYMPHOCYTES 3.1 % (24.0-44.0); MCH 31.5 pg (26.0-34.0); MCHC 31.7 g/dL (28.0-37.0); MCV 99.5 fL (80.0-100.0); PLATELET COUNT 117 thou/uL (150-400); POLYS 90.9 % (36.0-66.0); RBC 3.56 mil/uL (4.20-5.00); RDW 18.5 % (10.5-14.5); WBC 14.4 thou/uL (4.0-11.0)
[2017-05-25 21:08] LABS: ANION GAP 14 mmol/L (7-16); BUN 116 mg/dL (7-18); CALCIUM 7.7 mg/dL (8.5-10.1); CHLORIDE 95 mmol/L (98-107); CO2 21 mmol/L (21-32); CREATININE 9.3 mg/dL (0.6-1.0); GLUCOSE 319 mg/dL (74-106); SODIUM 130 mmol/L (136-145)
[2017-05-25 21:11] LABS: POTASSIUM 8.6 mmol/L (3.5-5.1)
[2017-05-25 21:18] LABS: SGOT 14 U/L (15-37)
[2017-05-25 21:19] LABS: ALBUMIN 3.1 g/dL (3.4-5.0); SGPT 35 U/L (30-65); TOTAL BILIRUBIN 0.5 mg/dL (<0.1-1.0); TOTAL PROTEIN 6.3 g/dL (6.4-8.2); TROPONIN-I < 0.04 ng/mL (<0.06)
[2017-05-25 22:26] VITALS: BP 147/56
[2017-05-25 23:00] VITALS: BP 138/67
[2017-05-25 23:15] VITALS: BP 134/63
[2017-05-25 23:30] VITALS: BP 104/55
[2017-05-25 23:45] VITALS: BP 131/64
[2017-05-26] VITALS (23 sets, daily range): BP systolic 126–189; BP diastolic 62–89
[2017-05-26 08:54] LABS: ABSOLUTE NEUTROPHILS 10.1 thou/uL (1.4-8.2); BASOPHILS 0.4 % (0.0-2.0); HEMATOCRIT 35.1 % (37.0-47.0); HEMOGLOBIN 11.4 gm/dL (12.0-15.0); LYMPHOCYTES 5.6 % (24.0-44.0); MCH 31.7 pg (26.0-34.0); MCHC 32.4 g/dL (28.0-37.0); MONOCYTES 5.6 % (1.0-8.0); PLATELET COUNT 94 thou/uL (150-400); POLYS 87.4 % (36.0-66.0); RBC 3.58 mil/uL (4.20-5.00); RDW 18.5 % (10.5-14.5); WBC 11.6 thou/uL (4.0-11.0)
[2017-05-26 09:04] LABS: CALCIUM 8.1 mg/dL (8.5-10.1); PHOSPHORUS 5.3 mg/dL (2.5-4.9)
[2017-05-26 09:08] LABS: CREATININE 4.5 mg/dL (0.6-1.0)
[2017-05-26 10:27] LABS: POC ANION GAP Outside Report Range mmol/L (7-16); POC BUN > 99 mg/dL (7-18); POC CA IONIZED 3.5 mg/dL (4.5-5.3); POC CHLORIDE 99 mmol/L (98-107); POC CREATININE 9.1 mg/dL (0.6-1.3); POC GLUCOSE 319 mg/dL (70-99); POC HEMOGLOBIN 12.2 g/dL (12.0-15.0); POC POTASSIUM > 7.5 mmol/L (3.5-5.1); POC SODIUM 129 mmol/L (136-145); POC TCO2 21 mmol/L (21-32)
[2017-05-26 16:12] LABS: HEP B SURFACE Ab(ANTI-HBS Non Reactive (()); HEPATITIS B SURFACE AG Negative (Negative)
[2017-05-27 03:10] LABS: GLYCOHEMOGLOBIN (HGB A1C) 7.8 % (4.8-5.6)
[2017-05-27 04:24] VITALS: BP 138/48
[2017-05-27 08:00] VITALS: BP 139/74
[2017-05-27 08:48] LABS: CALCIUM 7.5 mg/dL (8.5-10.1)
[2017-05-27 08:49] LABS: POTASSIUM 6.4 mmol/L (3.5-5.1)
[2017-05-27 08:50] LABS: CREATININE 5.8 mg/dL (0.6-1.0)
[2017-05-27 16:00] VITALS: BP 135/80
[2017-05-27 19:45] VITALS: BP 108/49
[2017-05-28 04:05] VITALS: BP 139/62
[2017-05-28 04:36] LABS: ALBUMIN 2.5 g/dL (3.4-5.0); CALCIUM 7.1 mg/dL (8.5-10.1); CREATININE 3.5 mg/dL (0.6-1.0); PHOSPHORUS 5.1 mg/dL (2.5-4.9); POTASSIUM 4.7 mmol/L (3.5-5.1)
[2017-05-28 07:21] VITALS: BP 157/70
[2017-05-28 17:17] VITALS: BP 162/83
[2017-05-28 20:38] VITALS: BP 144/69
[2017-05-29 03:37] VITALS: BP 147/67
[2017-05-29 06:37] LABS: ALBUMIN 2.4 g/dL (3.4-5.0); CALCIUM 6.6 mg/dL (8.5-10.1); PHOSPHORUS 6.2 mg/dL (2.5-4.9); POTASSIUM 5.1 mmol/L (3.5-5.1)
[2017-05-29 06:38] LABS: CREATININE 5.1 mg/dL (0.6-1.0)
[2017-05-29 08:40] VITALS: BP 139/65
[2017-05-29 16:53] VITALS: BP 149/81
[2017-05-29 19:16] VITALS: BP 142/69
[2017-05-30 05:24] VITALS: BP 159/60
[2017-05-30 08:53] LABS: ALBUMIN 2.9 g/dL (3.4-5.0); ANION GAP 9 mmol/L (7-16); BUN 27 mg/dL (7-18); CALCIUM 7.4 mg/dL (8.5-10.1); CHLORIDE 96 mmol/L (98-107); CO2 29 mmol/L (21-32); CREATININE 3.8 mg/dL (0.6-1.0); GLUCOSE 112 mg/dL (74-106); PHOSPHORUS 5.4 mg/dL (2.5-4.9); POTASSIUM 4.3 mmol/L (3.5-5.1); SODIUM 134 mmol/L (136-145); TROPONIN-I < 0.04 ng/mL (<0.06)
[2017-05-30 09:01] VITALS: BP 146/69
[2017-05-30] MEDS ORDERED: LEVAQUIN 500 M500 M3 PO (12:40)
[2017-05-30 13:38] VITALS: BP 146/69
== END 2017-05-30 15:45 | disposition home or self-care (01) | DRG 682 ==
LOC: ER 20:32 → ICU 21:55 → EROBS 21:55 → ICU 22:27 → 4W 05-26 18:34
PROVIDERS: Emergency Medicine; Internal Medicine; Internal Medicine Nephrology
PROC: 5A1D70Z Performance of Urinary Filtration, Intermittent, Less than 6 Hours Per Day (ICD-10-PCS; principal; 2017-05-26)
PROC: 5A1D70Z Performance of Urinary Filtration, Intermittent, Less than 6 Hours Per Day (ICD-10-PCS; 2017-05-27)
PROC: 5A1D70Z Performance of Urinary Filtration, Intermittent, Less than 6 Hours Per Day (ICD-10-PCS; 2017-05-29)
DX: I12.0 Hypertensive chronic kidney disease with stage 5 chronic kidney disease or end stage renal disease (principal); J18.9 Pneumonia, unspecified organism; N18.6 End stage renal disease; E44.0 Moderate protein-calorie malnutrition; J98.11 Atelectasis; F41.8 Other specified anxiety disorders; E21.3 Hyperparathyroidism, unspecified; E11.621 Type 2 diabetes mellitus with foot ulcer; I25.10 Atherosclerotic heart disease of native coronary artery without angina pectoris; E78.5 Hyperlipidemia, unspecified; J44.9 Chronic obstructive pulmonary disease, unspecified; E11.51 Type 2 diabetes mellitus with diabetic peripheral angiopathy without gangrene; G25.81 Restless legs syndrome; F17.210 Nicotine dependence, cigarettes, uncomplicated; E87.5 Hyperkalemia; D72.829 Elevated white blood cell count, unspecified; E11.42 Type 2 diabetes mellitus with diabetic polyneuropathy; L97.519 Non-pressure chronic ulcer of other part of right foot with unspecified severity; L97.529 Non-pressure chronic ulcer of other part of left foot with unspecified severity; Z79.82 Long term (current) use of aspirin; Z79.899 Other long term (current) drug therapy; Z95.1 Presence of aortocoronary bypass graft; Z90.49 Acquired absence of other specified parts of digestive tract; Z87.442 Personal history of urinary calculi; Z88.6 Allergy status to analgesic agent; Z88.8 Allergy status to other drugs, medicaments and biological substances; Z68.30 Body mass index [BMI] 30.0-30.9, adult; Z91.15 Patient's noncompliance with renal dialysis; Z99.2 Dependence on renal dialysis
CPT/HCPCS: 10047; 10078; 32100

== ENCOUNTER 2017-07-27 14:36 | Emergency (ER) | payer OTHER ==
[~2017-07-27] VITALS: Ht 165.1 cm; Wt 78.9 kg
[~2017-07-27 14:36] MED LIST changes: +LEVAQUIN 500 M500 M3 PO
[2017-07-27 15:29] LABS: ABSOLUTE NEUTROPHILS 6.3 thou/uL (1.4-8.2); BASOPHILS 0.2 % (0.0-2.0); EOSINOPHILS 5.1 % (0.0-3.0); HEMATOCRIT 36.9 % (37.0-47.0); HEMOGLOBIN 11.9 gm/dL (12.0-15.0); LYMPHOCYTES 10.7 % (24.0-44.0); MCH 30.8 pg (26.0-34.0); MCHC 32.3 g/dL (28.0-37.0); MCV 95.3 fL (80.0-100.0); MONOCYTES 7.2 % (1.0-8.0); PLATELET COUNT 124 thou/uL (150-400); POLYS 76.8 % (36.0-66.0); RBC 3.88 mil/uL (4.20-5.00); RDW 18.2 % (10.5-14.5); WBC 8.2 thou/uL (4.0-11.0)
[2017-07-27 15:38] LABS: CALCIUM 9.1 mg/dL (8.5-10.1); CREATININE 4.8 mg/dL (0.6-1.0); POTASSIUM 4.6 mmol/L (3.5-5.1)
[2017-07-27 15:53] LABS: TOTAL BILIRUBIN 0.3 mg/dL (<0.1-1.0); TOTAL PROTEIN 7.2 g/dL (6.4-8.2)
[2017-07-27 16:27] LABS: ANISOCYTOSIS 2+
[2017-07-27 16:28] LABS: OVALOCYTES OCCASIONAL
[2017-07-27 20:17] VITALS: BP 159/64
== END 2017-07-27 20:18 | disposition short-term general hospital (02) ==
LOC: ER 14:36
PROVIDERS: Emergency Medicine
DX: L02.01 Cutaneous abscess of face (principal); K04.7 Periapical abscess without sinus; R25.2 Cramp and spasm; E10.22 Type 1 diabetes mellitus with diabetic chronic kidney disease; N18.6 End stage renal disease; E10.40 Type 1 diabetes mellitus with diabetic neuropathy, unspecified; I12.0 Hypertensive chronic kidney disease with stage 5 chronic kidney disease or end stage renal disease; E78.5 Hyperlipidemia, unspecified; K86.1 Other chronic pancreatitis; I25.10 Atherosclerotic heart disease of native coronary artery without angina pectoris; F17.210 Nicotine dependence, cigarettes, uncomplicated; Z99.2 Dependence on renal dialysis; Z87.440 Personal history of urinary (tract) infections; Z88.5 Allergy status to narcotic agent; Z88.6 Allergy status to analgesic agent; Z88.8 Allergy status to other drugs, medicaments and biological substances

== ENCOUNTER 2018-03-09 09:39 | Inpatient (IN) | payer OTHER ==
[~2018-03-09] VITALS: Ht 165.1 cm; Wt 73.5 kg
[2018-03-09] VITALS (20 sets, daily range): BP systolic 145–193; BP diastolic 42–84
--- NOTE | ~2018-03-09 | H ---
[facility] [place] [address] HISTORY AND PHYSICAL Name: JUANITO YODER Room #: 244-P [facility] IN .R.#: [id number] Admission: 03/09/18 Attend Phys: Jose Alfredo Foss MD Discharge: Date of : 47 Report #: [id number] THIS REPORT FOR: //name// CC: Chin Foss DATE OF SERVICE: 03/09/2018 CHIEF COMPLAINT: Generalized weakness. HISTORY OF PRESENT ILLNESS: On 03/07/2018, she was scheduled for her usual Wednesday, Wednesday, Wednesday dialysis, but did not go because of weather concerns. As she progressed over the next several days, she became weaker and unable to walk without assistance. She developed nausea as well. She was apparently at the dialysis unit this morning and felt so bad that she called the paramedics who brought her to the hospital here. In the Emergency Room, her potassium was markedly elevated today at 8.1 with EKG changes and she required emergency treatment for severe hyperkalemia. When seen this evening, she has had her emergency dialysis and feels much better. Her weakness has improved substantially. PAST MEDICAL HISTORY: Extensive and she has had previous episodes of being admitted for severe hyperkalemia due to dietary noncompliance and due to missing dialysis sessions. She has hypertension, type 2 controlled diabetes, she has had coronary artery bypass grafting, hyperparathyroidism, appendectomy, depression/anxiety, kidney stones, chronic infection of the right foot that did heal last 6 months ago, anemia of chronic renal disease, peripheral neuropathy, restless legs syndrome, occasional episodes of MRSA skin infection, multiple access point procedures. CURRENT MEDICATIONS: Are listed in the chart. ALLERGIES: CODEINE, IBUPROFEN AND SPIRONOLACTONE. SOCIAL HISTORY: She lives by herself. Does not use alcohol, but does continue to smoke. REVIEW OF SYSTEMS: Is negative except for the HPI above. PHYSICAL EXAMINATION: GENERAL: Shows a 72-year-old female who was easily awakened in the intensive care unit. She is oriented and appropriate. HEART: S1, S2 are normal. LUNGS: Clear. The heart tones are normal and the rhythm is regular. [facility] [address] [place] [address] HISTORY AND PHYSICAL Name: JUANITO YODER Room #: 244-P [facility] IN [facility]#: [id number] Admission: 03/09/18 Attend Phys: Jose Alfredo Foss MD Discharge: Date of : 47 Report #: [id number] ABDOMEN: Soft, nontender, without hepatosplenomegaly or masses. EXTREMITIES: There is no edema present. SKIN: There is a left parietal scalp defect at about 2 x 1 cm with a nice scabbed-over base. There is no expressible pus underneath. ASSESSMENT: 1. Critical hyperkalemia -- treated with emergency dialysis. 2. Severe muscle weakness caused by hyperkalemia, now much better. 3. Noncompliance with dialysis. 4. History of renal dietary noncompliance. 5. History of methicillin-resistant Staphylococcus aureus skin infections -- nasal PCR was positive here in May 2017. 6. Healing scalp abscess (right parietal). 7. Depression. 8. Hypertension. 9. Coronary artery disease. 10. Peripheral neuropathy. 11. Type 2 diabetes, currently diet controlled. 12. Other medical problems as in the previous records. PLAN: Her usual home medications are being renewed. She did have some accelerated junctional rhythms, but now has returned to normal sinus rhythm. Repeat nasal PCR for MRSA. Continue oral antibiotics for healing of the scalp lesion. When asked about code status, the patient requested that she not be resuscitated in the event a cardiopulmonary arrest occurs, and therefore a "DNR" was ordered. After her emergency dialysis, she feels much better. By: 24 09 Jose Alfredo Foss MD /nt
[2018-03-09 09:57] LABS: ABSOLUTE NEUTROPHILS 5.2 thou/uL (1.4-8.2); BASOPHILS 1.3 % (0.0-2.0); EOSINOPHILS 3.5 % (0.0-3.0); HEMATOCRIT 34.4 % (37.0-47.0); HEMOGLOBIN 11.1 gm/dL (12.0-15.0); LYMPHOCYTES 12.5 % (24.0-44.0); MCH 33.4 pg (26.0-34.0); MCHC 32.4 g/dL (28.0-37.0); MONOCYTES 7.2 % (1.0-8.0); PLATELET COUNT 107 thou/uL (150-400); POLYS 75.5 % (36.0-66.0); RBC 3.34 mil/uL (4.20-5.00); RDW 21.4 % (10.5-14.5); WBC 6.8 thou/uL (4.0-11.0)
[2018-03-09 10:03] LABS: ANION GAP 11 mmol/L (7-16); BUN 76 mg/dL (7-18); CALCIUM 8.9 mg/dL (8.5-10.1); CHLORIDE 99 mmol/L (98-107); CO2 26 mmol/L (21-32); CREATININE 7.7 mg/dL (0.6-1.0); GLUCOSE 139 mg/dL (74-106); SODIUM 136 mmol/L (136-145)
[2018-03-09 10:04] LABS: POTASSIUM 8.1 mmol/L (3.5-5.1)
[2018-03-09 10:12] LABS: ALBUMIN 3.1 g/dL (3.4-5.0); SGOT 23 U/L (15-37); SGPT 25 U/L (30-65); TOTAL BILIRUBIN 0.3 mg/dL (<0.1-1.0); TOTAL PROTEIN 6.5 g/dL (6.4-8.2); TROPONIN-I <0.06 ng/mL (<0.06)
[2018-03-09 14:13] LABS: ANISOCYTOSIS 2+
[2018-03-09 14:14] LABS: MACROCYTES 1+
[2018-03-09 14:15] LABS: POLYCHROMASIA OCCASIONAL
--- NOTE | 2018-03-09 15:46 | EKG ---
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: : 1945 Requested By: Unique Quinn Order Number: [id number] MD: Guerrero Glez Measurements Intervals [place] Rate: 52 P: [place]: QRS: -51 QRSD: 143 T: 72 QT: 520 QTc: 484 Interpretive Statements Junctional rhythm Nonspecific IVCD with LAD Consider anterior infarct Compared to ECG 05/29/2017 17:03:57 Junctional rhythm now present Intraventricular conduction delay now present Myocardial infarct finding now present Sinus tachycardia no longer present Early repolarization no longer present Electronically Signed On 03-09-2018 15:46:26 BRIDGES AND BUILDINGS SUPERVISOR by Guerrero Glez [email or web address] <ELECTRONICALLY SIGNED> By: Guerrero Glez MD 03/09/18 1546 1001 1001 Guerrero Glez MD /EPI
--- NOTE | 2018-03-09 19:06 | NUR ---
Patient admitted to room 244 from ED accompanied by ER nurse Liliana. Patient awake, but anxious, denies pain. Dialysis nurse at bedside, started on treatment by 1130. Tolerated well, 2L off. Orders for labs in am. Dr. Foss notified of patient arrival, will round later. No void for this shift, patient reports she does still produce urine at times. Report given to oncoming EL Salazar. Continue to monitor.
[2018-03-10] VITALS (11 sets, daily range): BP systolic 124–175; BP diastolic 46–89
--- NOTE | 2018-03-10 00:17 | NUR ---
03/09/181999: DR. MARC ROUNDING ON PT, UPDATES GIVEN, ORDERS RECEIVED, HOME MEDS RESTARTED. PT CAN TRANSFER TO STEP-DOWN UNIT. 2100: NOTIFIED DR. PATEL OF DR. MARC OKAY WITH PT TRANSFERRING TO STEP DOWN UNIT, DR. PATEL UPDATED ON PT'S STATUS, VITAL SIGNS/RHYTHM READ TO PHYSCIAN, DR. PATEL AGREEABLE TO TRANSFER TO STEP DOWN FLOOR.
[2018-03-10 05:13] LABS: ALBUMIN 2.7 g/dL (3.4-5.0); PHOSPHORUS 5.6 mg/dL (2.5-4.9)
[2018-03-10 05:17] LABS: CREATININE 3.8 mg/dL (0.6-1.0); POTASSIUM 5.2 mmol/L (3.5-5.1)
--- NOTE | 2018-03-10 05:22 | NUR ---
THIS RN ASSUMED CARE OF PT AROUND 1900. DR. MARC ROUNDED AROUND 2000 AND ENTERED CPOE ORDERS AND RESTARTED HOME MEDS. ORDERS RECEIVED TO TRANSFER TO STEP-DOWN FLOOR. VSS OVERNIGHT, HTN AT TIMES, PM DOSE OF COREG MISSED - THIS DOSE WAS GIVEN AROUND 2300 AND PT TOLERATED WELL. NO DISTRESS NOTED, PT REMAINED ON 2LNC THROUGHOUT THE NIGHT, THIS IS WHAT SHE WEARS AT HOME. ASSESSMENTS DOCUMENTED. NO UOP PT IS ANURIC. PT SLEPT MOST OF THE NIGHT SOUNDLY. SHE IS AWAKE AND FEELING MUCH BETTER THIS MORNING. AM LABS IMPROVED FROM PREVIOUS DAY. PT DENIES SOA/PAIN OVERNIGHT AND AT THIS TIME. PT HAS AN ABSCESS ON THE TOP OF HER HEAD THAT SHE HAS HAD FOR QUITE SOME TIME, DR. MARC VISUALIZED THIS AND STATED IT SEEMED TO BE IMPROVING.
[2018-03-10 09:10] LABS: HEP B SURFACE Ab(ANTI-HBS Non Reactive (()); HEPATITIS B SURFACE AG Negative (Negative)
--- NOTE | 2018-03-11 09:00 | HC ---
[facility] [place] [address] CONSULTATION Name: JUANITO YODER Room #: 250-P [facility] IN .R.#: [id number] Admission: 03/09/18 Attend Phys: Jose Alfredo Foss MD Discharge: 03/10/18 Date of : 46 Report #: [id number] THIS REPORT FOR: //name// CC: Chin Foss REASON FOR CONSULTATION: End-stage renal disease. REASON FOR PRESENTATION: Weakness. HISTORY OF PRESENT ILLNESS: Very well-known patient to me, is a 72-year-old, who is maintained on hemodialysis every Wednesday, Wednesday and Wednesday. She missed her dialysis treatment last Wednesday because of weather. She started to have some weakness and presented to the Emergency Room. She called the paramedics and was brought to the Emergency Room, where she was found to be in hyperkalemia with a potassium of 8.1. I am being consulted to manage her end-stage renal disease. PAST MEDICAL HISTORY: 1. End-stage renal disease. 2. Life threatening hyperkalemia. 3. Hypertension. 4. Diabetes mellitus. 5. Coronary artery disease. 6. Post-CABG. 7. Appendectomy. 8. Facial infection. 9. Peripheral neuropathy. 10. AV fistula. MEDICATIONS: 1. Plavix. 2. Isosorbide mononitrate. 3. Carvedilol. 4. Sevelamer. SOCIAL HISTORY: She lives independently. No drug or alcohol abuse. REVIEW OF SYSTEMS: GENERAL: Significant for weakness. CARDIOVASCULAR: Denies chest pain or palpitation. PULMONARY: No cough or hemoptysis. GASTROINTESTINAL: Significant for nausea. FAMILY HISTORY: Significant for hypertension and diabetes mellitus. PHYSICAL EXAMINATION: [facility] [address] [place] [address] CONSULTATION Name: JUANITO YODER Room #: 250-P [facility] IN [facility].#: [id number] Admission: 03/09/18 Attend Phys: Jose Alfredo Foss MD Discharge: 03/10/18 Date of : 47 Report #: [id number] VITAL SIGNS: Temperature 36.9, blood pressure 138/50. HEAD AND NECK: No jugular venous distention, no bruit, no thyromegaly. CHEST: Decreased air entry bilaterally. CARDIOVASCULAR: Regular with no rub detected. ABDOMEN: Soft, nontender. LOWER EXTREMITIES: No edema. LABORATORY DATA: Laboratory value is reviewed. Potassium is down to 5.2. ASSESSMENT, IMPRESSION AND PLAN: 1. End-stage renal disease. 2. Life threatening hyperkalemia. 3. Noncompliance. 4. Diabetes mellitus. 5. Hypertension. 6. The patient received emergent hemodialysis yesterday. Potassium is better. She could be discharged and go home to follow up with her usual dialysis unit every Wednesday, Wednesday and Wednesday. <ELECTRONICALLY SIGNED> By: Chin Sneed MD 03/11/18 0900 1 4 Chin Sneed MD /chuck
== END 2018-03-10 16:10 | disposition home or self-care (01) | DRG 640 ==
LOC: ER 09:39 → ICU 10:42 → EROBS 10:42 → ICU 10:53
PROVIDERS: Hospitalist; Physician Assistant; ADMIT Internal Medicine
PROC: 5A1D70Z Performance of Urinary Filtration, Intermittent, Less than 6 Hours Per Day (ICD-10-PCS; principal; 2018-03-09)
DX: E87.5 Hyperkalemia (principal); N18.6 End stage renal disease; E43 Unspecified severe protein-calorie malnutrition; L02.811 Cutaneous abscess of head [any part, except face]; I12.0 Hypertensive chronic kidney disease with stage 5 chronic kidney disease or end stage renal disease; I25.10 Atherosclerotic heart disease of native coronary artery without angina pectoris; E78.5 Hyperlipidemia, unspecified; G25.81 Restless legs syndrome; F32.9 Major depressive disorder, single episode, unspecified; F41.9 Anxiety disorder, unspecified; E11.22 Type 2 diabetes mellitus with diabetic chronic kidney disease; E11.42 Type 2 diabetes mellitus with diabetic polyneuropathy; Z66 Do not resuscitate; Z95.1 Presence of aortocoronary bypass graft; Z90.49 Acquired absence of other specified parts of digestive tract; Z87.442 Personal history of urinary calculi; Z88.6 Allergy status to analgesic agent; Z88.8 Allergy status to other drugs, medicaments and biological substances; Z91.19 Patient's noncompliance with other medical treatment and regimen; Z86.14 Personal history of Methicillin resistant Staphylococcus aureus infection; Z68.27 Body mass index [BMI] 27.0-27.9, adult; Z99.2 Dependence on renal dialysis
CPT/HCPCS: 10078; 32100

== ENCOUNTER → 2018-05-12 | Outpatient (CLI) | payer OTHER | LOC: RAD 10:42 | DX: J44.9 Chronic obstructive pulmonary disease, unspecified (principal); I51.7 Cardiomegaly; I77.810 Thoracic aortic ectasia ==

== ENCOUNTER 2018-05-25 11:25 | Inpatient (IN) | payer OTHER ==
[~2018-05-25] VITALS: Ht 162.6 cm; Wt 73.4 kg
[2018-05-25] VITALS (40 sets, daily range): BP systolic 109–181; BP diastolic 55–145
--- NOTE | ~2018-05-25 | H ---
[facility] [address] HISTORY AND PHYSICAL Name: JUANITO YODER Room #: 240-P ADM IN M.R.#: [id number] Admission: 05/25/18 ������������������ Attend Phys: Jose Alfredo Foss MD Discharge: ������������������ Date of : 47 Report #: [id number] THIS REPORT FOR: //name// CC: Jose Alfredo Foss CHIEF COMPLAINT: Weakness, critical hyperkalemia, skipped dialysis. HISTORY OF PRESENT ILLNESS: This is the second hospitalization this year for tremendous weakness directly due to the patient skipping dialysis sessions. This morning, she was too weak to get out of bed and her family called the paramedics. She had an excuse for missing at least the last 2 dialysis sessions, such as she had turned her cell phone off so that when the [employer] transport bus came to pick her up, she was asleep and missed their phone call. In the Emergency Room, she was found to have a potassium of 8.3. She was diffusely weak and reported that the weakness she is experiencing is the same as when she has skipped dialysis before. There are EKG changes corresponding to severe hyperkalemia. For this reason, she is admitted to the hospital and she is admitted from the Emergency Room to the intensive care unit to undergo emergent dialysis. PAST MEDICAL HISTORY: She had a similar episode in February of this year, and she has had episodes in the past. She has complex coronary artery disease, having had coronary artery bypass surgery 10 years ago or more, and then in 2016 she had 2 cardiac catheterizations finding multiple areas of disease and one intervention -- those records are not immediately available. She has social difficulties with having lost her home several years ago, the history is not immediately available, but she does have an adult male child who is living with her and not contributing to help her support her home, and she lost her home. Currently, she is living with this son in her daughter's and her daughter's family's home. She has had end-stage chronic kidney disease, on dialysis for many years. She has had a subtotal parathyroidectomy. She has type 2 diabetes in years past for which she has been noncompliant with dietary interventions and with her medications. More recently, as her appetite has been poor and she has been depressed and stressed, her blood sugars have not been as high. She has had MRSA at various locations, more recently a scalp abscess was drained at an outside institution. NOTE: She has been admitted to several different hospitals around the [place] area: [facility], [facility], [facility], and [facility]. In all these locations her nephrology services have been provided by the same [facility], and they are actually [address] [address] HISTORY AND PHYSICAL Name: PARESHJUANITO J Room #: 240-P [facility] IN .R.#: [id number] Admission: 05/25/18 ������������������ Attend Phys: Jose Alfredo Foss MD Discharge: ������������������ Date of : 47 Report #: [id number] better versed and have a more complete picture of her medical problems. MEDICATIONS: Unchanged as before. REVIEW OF SYSTEMS: She did fall recently and fell face forward into a refrigerator at a house warming alliance party. This was witnessed and no abuse or attack was involved. PHYSICAL EXAMINATION: HEENT: Multiple healing facial bruises that appear to be 1-2 weeks old that match her history. LUNGS: Clear. CARDIOVASCULAR: S1, S2 are normal. ABDOMEN: Soft and nontender. EXTREMITIES: There is no pedal edema present. Numbness is present in her feet of her neuropathy. ASSESSMENT: 1. Critical hyperkalemia, being treated with emergency dialysis. 2. Continued depression and anxiety, leading to her skipping dialysis treatments. 3. Financial difficulties. 4. End-stage kidney disease, on dialysis. 5. Recent facial trauma, for which she was not evaluated medically. 6. History of methicillin-resistant Staphylococcus aureus skin infections. 7. Severe coronary artery disease. 8. Acute angina. PLAN: She is admitted to the Intensive Care Unit on dialysis. Sublingual nitroglycerin has relieved her chest pain. Cardiology consultation has been requested and nitroglycerin paste has been added. ADDITIONAL REVIEW OF SYSTEMS: The patient reported angina chest pain to the nurse a few minutes ago. ��������������������������������������������� ���������������������������������������� By: ��������������������������������������������� 1256 1317 Jose Alfredo Foss MD /nt
--- NOTE | ~2018-05-25 | HC ---
[facility] [place] [address] CONSULTATION Name: JUANITO YODER Room #: 240-P [facility] IN M.R.#: [id number] Admission: 05/25/18 ������������������ Attend Phys: Jose Alfredo Foss MD Discharge: ������������������ Date of : 47 Report #: [id number] THIS REPORT FOR: //name// CC: Jose Alfredo Foss DATE OF SERVICE: 05/25/2018 INCOMPLETE DICTATION NEPHROLOGY CONSULTATION ATTENDING PHYSICIAN: Dr. Foss. REASON FOR CONSULTATION: End-stage renal disease and hyperkalemia. HISTORY OF PRESENT ILLNESS: This patient, well known to our service, has end-stage renal disease, has had multiple and repeated episodes of life-threatening hyperkalemia related to poor dietary compliance, etc. She missed her dialysis 2 days ago, had not dialyzed then in 5 days and with her eating habits, of course, came in with a potassium of 8.8 in a junctional slow rhythm and was treated emergently in the Emergency Room and now acute dialysis in the ICU. PAST MEDICAL HISTORY: Long-standing diabetes. She has had previous coronary artery disease, peripheral vascular disease with peripheral foot ulcers, diabetic triopathy and a history of hypertension as well as noted and marked noncompliance, COPD and cigarette smoking. SOCIAL HISTORY: Active and ongoing cigarette smoker. REVIEW OF SYSTEMS: GENERAL: She is chronically ill. EYES: Her vision is reasonably good. ENT: Hearing okay. No mouth sores or ulcers. She fell and has ecchymoses about her face. ENDOCRINE: Positive for diabetes. RESPIRATORY: She gets easily short winded. She is a chronic smoker. CARDIAC: She has intermittent chest pains and previous coronary bypass. GASTROINTESTINAL: Appetite in general is fair at best. GENITOURINARY: Does not make much in the way of urine. NEUROLOGIC: Numbness in the feet. MUSCULOSKELETAL: Quite weak with the severe hyperkalemia. FAMILY HISTORY: Noncontributory. PHYSICAL EXAMINATION: [facility] [address] [place] [address] CONSULTATION Name: JUANITO YODER Room #: 240-P [facility]#: [id number] Admission: 05/25/18 ������������������ Attend Phys: Jose Alfredo Foss MD Discharge: ������������������ Date of : 47 Report #: [id number] GENERAL: This is a chronically ill-appearing patient. HEENT: Ecchymoses about her face. Eyes, vision is okay. No scleral icterus. ENT, Hearing okay. Buccal mucosa is moist. Tongue benign. NECK: Supple. CHEST: Clear to auscultation. HEART: Regular. ABDOMEN: Soft and nontender. EXTREMITIES: Show 1+ peripheral edema. LABORATORY DATA: As mentioned, the initial potassium 8.3, glucose 134, creatinine 9.1 and BUN 90. ASSESSMENT AND PLAN: 1. Hyperkalemia. She has severe hyperkalemia and is being treated. We will recheck labs in the a.m. 2. End-stage renal disease, on dialysis, with poor dietary compliance. 3. Ongoing cigarette smoking with chronic obstructive pulmonary disease. 4. Diabetes mellitus with triopathy. 5. History of foot ulcers. 6. History of coronary bypass. 7. History of hypertension. DICTATION ENDS HERE. ��������������������������������������������� ���������������������������������������� By: ��������������������������������������������� 1717 1144 Kd Lewis MD /nt
[2018-05-25] MEDS ORDERED: NORVASC2.5 MG PO (11:43)
[2018-05-25 11:54] LABS: ABSOLUTE NEUTROPHILS 5.5 thou/uL (1.4-8.2); BASOPHILS 1.2 % (0.0-2.0); EOSINOPHILS 4.3 % (0.0-3.0); HEMATOCRIT 39.4 % (37.0-47.0); HEMOGLOBIN 13.2 gm/dL (12.0-15.0); LYMPHOCYTES 11.1 % (24.0-44.0); MCH 33.4 pg (26.0-34.0); MCHC 33.4 g/dL (28.0-37.0); MCV 99.9 fL (80.0-100.0); MONOCYTES 6.4 % (1.0-8.0); PLATELET COUNT 104 thou/uL (150-400); RBC 3.95 mil/uL (4.20-5.00); RDW 21.4 % (10.5-14.5); WBC 7.1 thou/uL (4.0-11.0)
[2018-05-25 12:07] LABS: ANION GAP 14 mmol/L (7-16); BUN 90 mg/dL (7-18); CALCIUM 10.1 mg/dL (8.5-10.1); CHLORIDE 89 mmol/L (98-107); CO2 23 mmol/L (21-32); CREATININE 9.1 mg/dL (0.6-1.0); GLUCOSE 134 mg/dL (74-106); SODIUM 126 mmol/L (136-145); TROPONIN-I <0.06 ng/mL (<0.06)
[2018-05-25 12:11] LABS: POTASSIUM 8.3 mmol/L (3.5-5.1)
[2018-05-25 12:14] LABS: ANISOCYTOSIS 1+; OVALOCYTES 1+
--- NOTE | 2018-05-25 17:06 | NUR ---
CM ASSESSMENT: CASE OPENED FOR DC PLANNING. CLINICAL INFO REVIEWED. PT ADMITTED WITH HYPERKALEMIA (8.3) AFTER MISSING DIALYSIS WEDNESDAY AND TODAY. FAMILY CALLED EMS WHEN PT UNABLE TO GET OUT OF BED. NATALIE GARY FROM [facility] [employer] [phone] AND MELANIE RECINOS LENS MOUNTER FORM [facility] ON UNIT TO MEET WITH PT AFTER RECEIVING CALL. [facility] WORKERS INDICATE PT LIVES IN HOUSE OF NIECE AND HER SPOUSE, AND PT'S SON TEAGAN LIVES THERE ALSO. PT HAS BRUISING TO BOTH EYES AND TO RIGHT FACE AND NECK. PT INDICATES THIS HAPPENED APPROX 2 WEEKS AGO WHNE SHE AND SON SHEILA WERE AT A [employer] AND PT SAT ON A STOOL BUT WAS NOT STABLE AND FELL INTO A REFRIGERATOR CAUSING FACIAL BRUISING. CT OF HEAD,C-SPINE AND FACE PENDING. MET WITH PT. SHE IS SLEEPY BUT ORIENTED. PT STATES LIVES IN NIECE JERRI CHAN'S HOUSE WITH JERRI'S SPOUSE [place], AND PT'S SON TEAGAN. PT IS INDEPENDENT WITH ADLS, USES [employer] FOR MOBILITY, HAS HOME O2 CONCENTRATOR FROM [facility] AND WEARS 2 L NC PRN, NO PORTABLE. COMMUNITY DIALYSIS AT [facility] -W- 0930 CHAIR TIME WITH [employer] [facility] TRANSPORT[facility]. PT INDICATES [employer] [facility] CALLS HER TO CONFIRM TRANSPORT AND SHE HAD HER PHONE SILENCED AND MISSED CALL. TRIED TO CALL SON TEAGAN AT [phone] BUT "UNABLE TO COMPLETE CALL DIALED", ALSO TRIED [phone] BUT THIS IS [employer] AND TEAGAN IS NOT EMPLOYED THERE. SPOKE WITH JERRI CHAN, PT'S NIECE BY PHONE [phone]. 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 SHE CONFIRMS PT LIVES WITH HER HER SPOUSE AND SON TEAGAN. JERRI INDICATES PT MISSED PAST 2 DIALYSIS DAYS DID NOT WAKE UP FOR TRANSPORTATION. JERRI PROVIDED SAME DETAILS ABOUT PT'S BRUISING PT. JERRI ASKED ABOUT DC PLANNING AND INFORMED HER WOULD HAVE PT/OT EVAL FOR POSSIBLE HH VS SKILLED REHAB STAY, VS ACUTE REHAB STAY. WILL ALSO CALL [facility]WS TO DISCUSS PT AND WILL UPDATE [facility] CASE WORKERS PRN. DR. MARC AND DRYWALL INSTALLER SHANTA UPDATED.
--- NOTE | 2018-05-25 19:15 | NUR ---
Pt admitted to the ICU from the Emergency dept this afternoon. Pt awake an responds appropriately. Pt dozes intermittently but is easily arousable. Hemodialysis initiated upon arrival to the ICU by dialysis nurse, Souleymane. Four hour dialysis treatment completed -see dialysis flow sheet. Pt has extensive facial/neck bruising from reported fall a week ago Wednesday. business analyst project manager Reena Jung consulted and has seen patient to follow up on current living conditions and possible needs for discharge planning: see continuous pillowcase cutter note. Sinus rhythm with first degree block on arrival to ICU. Murmur audible. Pt reported having chest discomfort this afternoon. Reports taking sublingual NTG when she has angina at home. Dr Foss notified and orders received for NTG (sublingual) and cardiology consult. 12 leak ECG also obtained with some ST segment depression noted in anterior V leads. Spoke with Dr Jeffery and additional orders received. Pt did report partial relief from chest pain following two subligual NTG and application of NTG paste. O2 at 3 liters. No apparent respiratory distress. Late dinner tray set up for patient who is able to feed herself. Deandre Lewis, Sigrid and Prudence all by to see patient with orders received. Pt to have CT scan of head, neck and chest. Report given to RN assuming pt. Informed of need to transport pt to radiolgy for scans. No contact with family members. See admission summary/history.
[2018-05-26] VITALS (46 sets, daily range): BP systolic 109–164; BP diastolic 46–71
[2018-05-26 01:06] LABS: GLYCOHEMOGLOBIN (HGB A1C) 6.8 % (4.8-5.6)
[2018-05-26 04:28] LABS: PHOSPHORUS 5.8 mg/dL (2.5-4.9)
--- NOTE | 2018-05-26 04:33 | NUR ---
RECEIVED PT'S CARE AROUND 1929; PT. AOX4; NO C/O PAIN; DURING ASSESSMENT PT. ST. NO HAVING CP; AROUND TO 2199 PT WAS TAKEN TO CT SCAN; VS WNL; RESTING THROUGH THE NIGHT WITH EYES CLOSE; EXPLAINED PER HOSPITAL PROTOCOL THE NEED TO TAKE PICTURES OF FACE BRUSING WELL TORSO; ST. UNDERSTANDING; ASSESSMENT CHARGED; FOLLOWING POC; WILL KEEP MONITORING; WILL PASS ON REPORT.
[2018-05-26 04:51] LABS: CREATININE 4.5 mg/dL (0.6-1.0)
[2018-05-26 04:52] LABS: POTASSIUM 4.7 mmol/L (3.5-5.1)
--- NOTE | 2018-05-26 08:21 | EKG ---
[address] [employer] 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 : 1945 Requested By: Virgil Jacinto Order Number: [id number] MD: Guerrero Glez Measurements Intervals Theresa Rate: 56 P: NE: QRS: -89 QRSD: 186 T: 69 QT: 538 QTc: 520 Interpretive Statements Junctional rhythm Nonspecific IVCD with LAD Compared to ECG 03/09/2018 10:01:11 No significant changes Electronically Signed On 05-26-2018 8:21:01 CDT by Guerrero Glez [email or web address] ��������������������������������������������� <ELECTRONICALLY SIGNED> ���������������������������������������� By: Guerrero Glez MD ��������������������������������������������� 05/26/18 0821 1134 1134 Guerrero Glez MD /LILIA
--- NOTE | 2018-05-26 08:30 | EKG ---
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 : 1945 Requested By: Jose Alfredo Foss Order Number: [id number] MD: Guerrero Glez Measurements Intervals [place] Rate: 82 P: -40 DE: 162 QRS: 36 QRSD: 126 T: 160 QT: 351 QTc: 410 Interpretive Statements Atrial tachycardia vs atrial fibrillation Isolated PVC Electronically Signed On 05-26-2018 8:29:50 CDT by Guerrero Glez [email or web address] ��������������������������������������������� <ELECTRONICALLY SIGNED> ���������������������������������������� By: Guerrero Glez MD ��������������������������������������������� 05/26/18 0829 1752 1752 Guerrero Glez MD /LILIA
[2018-05-26 08:44] LABS: CHOLESTEROL 214 mg/dL (<200); HDL CHOLESTEROL 21 mg/dL (>40); LDL CHOLESTEROL 156 mg/dL (<100); TC:HDL 10.2 Ratio (Not establshd); TRIGLYCERIDE 186 mg/dL (<150); VLDL 37 mg/dL (<40)
--- NOTE | 2018-05-26 11:30 | 2DMMODE ---
[facility] [employer] [place] [place] [address] 2 D/M-MODE ECHOCARDIOGRAM Name: JUANITO YODER Room #: 240-P ADM IN .R.#: [id number] ������������� Admission: 05/25/18 ������������� Attend Phys: Jose Alfredo Foss, Discharge: ��� ������������� ��� Date of : 47 Date of Service: 05/26/18 1130 �� Report #: [id number] �������� ��������������������������������������������[id number] THIS REPORT FOR: //name// APPROVED REPORT Study performed: 05/26/2018 09:38:38 EXAM: Comprehensive 2D, Doppler, and color-flow Echocardiogram Patient Location: ICU Room #: 240 Status: routine BSA: 1.78 HR: 90 bpm BP: 137/64 mmHg Rhythm: Sinus arrhythmia Other Information Study Quality: Good Indications Angina, murmur. Hx: CABG, ESRD, HTN, DM, COPD. 2D Dimensions RVDd: 43.65 mm IVSd: 14.63 (7-11mm) LVOT Diam: 20.42 (18-24mm) LVDd: 55.16 mm PWd: 9.27 (7-11mm) LVDs: 47.78 (25-40mm) Aortic Root: 33.83 mm Volumes Left Atrial Volume (Systole) Single Plane 4CH: 80.15 mL Single Plane 2CH: 84.60 mL LA ESV Index: 49.00 mL/m2 Aortic Valve AoV Peak Melvin.: 1.79 m/s AO Peak Gr.: 15.14 mmHg LVOT Max P.25 mmHg LVOT Max V: 1.03 m/s MILAGROS Vmax: 1.89 cm2 Mitral Valve E/A Ratio: 1.6 MV Decel. Time: 163.85 ms MV E Max Melvin.: 1.35 m/s [facility] [address] [place] [address] 2 D/M-MODE ECHOCARDIOGRAM Name: JUANITO YODER Reymundo Room #: 240-P [facility] IN [facility].#: [id number] ������������� Admission: 05/25/18 ������������� Attend Phys: Jose Alfredo Foss, Discharge: ��� ������������� ��� Date of : 47 Date of Service: 05/26/18 1130 �� Report #: [id number] �������� ��������������������������������������������[id number] MV A Melvin.: 0.82 m/s MV PHT: 47.52 ms IVRT: 69.20 ms Pulmonary Valve PV Peak Melvin.: 1.27 m/s PV Peak Gr.: 6.47 mmHg Pulmonary Vein P Vein S: 0.35 m/s P Vein D: 0.72 m/s P Vein S/D Ratio: 0.49 Tricuspid Valve TR Peak Melvin.: 3.00 m/s RAP Estimate: 10.00 mmHg TR Peak Gr.: 36.00 mmHg PA Pressure: 46.00 mmHg Left Ventricle The left ventricle is normal size. Basilar inferior hypokinesis noted. Mild concentric left ventricular hypertrophy. Left ventricular systolic function is normal. LVEF is 55%. Moderate diastolic dysfunction is present (pseudonormal filling). Right Ventricle Right ventricle is mildly dilated. Right ventricle is mildly hypokinetic. Atria Left atrium is severely dilated. Right atrium is mildly dilated. Aortic Valve Aortic valve leaflets are thickened and calcified. Trace to mild aortic regurgitation. Borderline mild aortic stenosis. MILAGROS of 1.9cm2. Mitral Valve Mitral valve leaflets are moderately thickened and calcified. Moderate mitral regurgitation. No evidence of mitral valve stenosis. Tricuspid Valve The tricuspid valve is normal in structure. Moderate tricuspid regurgitation. Estimated PAP is 45mmHg. Pulmonic Valve [facility] [address] [place] [address] 2 D/M-MODE ECHOCARDIOGRAM Name: JUANITO YODER Room #: 240-P [facility] IN .R.#: [id number] ������������� Admission: 05/25/18 ������������� Attend Phys: Jose Alfredo Foss, Discharge: ��� ������������� ��� Date of : 47 Date of Service: 05/26/18 1130 �� Report #: [id number] �������� ��������������������������������������������[id number] The pulmonary valve is normal in structure. Mild pulmonic regurgitation. Great Vessels Ascending aorta is dilated at 5.5cm. at exclude the possibility of aortic pathology such as a dissection or aneurysm. Further evaluation recommended. IVC is dilated and collapses >50% with inspiration. Pericardium There is no pericardial effusion. Small right pleural effusion noted. <Conclusion> The left ventricle is normal size. LVEF is 55%. Basilar inferior hypokinesis noted. Right ventricle is mildly dilated. Right ventricle is mildly hypokinetic. Left atrium is severely dilated. Right atrium is mildly dilated. Aortic valve leaflets are thickened and calcified. Trace to mild aortic regurgitation. Borderline mild aortic stenosis. MILAGROS of 1.9cm2. Mitral valve leaflets are moderately thickened and calcified. Moderate mitral regurgitation. The tricuspid valve is normal in structure. Moderate tricuspid regurgitation. Estimated PAP is 45mmHg. The pulmonary valve is normal in structure. Mild pulmonic regurgitation. There is no pericardial effusion. Small right pleural effusion noted. Ascending aorta is dilated at 5.5cm. at exclude the possibility of aortic pathology such as a dissection or aneurysm. Further evaluation recommended. ��������������������������������������������� <ELECTRONICALLY SIGNED> ���������������������������������������� By: Basil Villalta MD ��������������������������������������������� 05/26/18 1130 1130 1130 Basil Villalta MD /INF
--- NOTE | 2018-05-26 17:50 | NUR ---
SHIFT SUMMARY: ALERT AND ORIENTED AND HAS DENIED PAIN. VITALS STABLE. TOLERATING DIET W/O NAUSEA. WENT FOR CTA AND RESULTS IN [facility]. TRANSFER ORDERS RECEIVED AND PATIENT WILL BE TRANSFERRED WHEN BED IS AVAILABLE.
--- NOTE | 2018-05-27 00:21 | NUR ---
Pt is c/o being anxious despite received Ativan and seroquel earlier tonight. she stated she usually taking Ativan 2-3 mg at bedtime. Call placed to ; called back with new orders.
--- NOTE | 2018-05-27 00:49 | NUR ---
REPORT IS GIVEN TO EL ARMAS.
--- NOTE | 2018-05-27 01:05 | NUR ---
PT LEFT ICU WITH STABLE CONDITIONS VIA W/C , ACCOMPANIED BY ME TO ROOM 358. ALL BELONGING ARE SENT WITH PT.
[2018-05-27 01:16] VITALS: BP 146/68
--- NOTE | 2018-05-27 02:42 | NUR ---
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 RECEIVED REPORT AND GOT PT SETTLED IN. IV IN LEFT AC WAS LEAKING AND WOULD NOT FLUSH UPON ASSESSMENT. PIV WAS REMOVED AND SITE CARE WAS GIVEN. PT STATES NO N/V AND WAS FEVER FREE. WILL FOLLOW POC AND ROUND HOURLY. PT ALSO IS ISOLATION FROM PREVIOUS MRSA IN FEB 2018.
[2018-05-27 04:53] LABS: CALCIUM 8.9 mg/dL (8.5-10.1); PHOSPHORUS 7.2 mg/dL (2.5-4.9); POTASSIUM 4.8 mmol/L (3.5-5.1)
[2018-05-27 05:09] LABS: CREATININE 5.9 mg/dL (0.6-1.0)
[2018-05-27 05:25] VITALS: BP 148/80
[2018-05-27 07:41] VITALS: BP 130/54
[2018-05-27 11:38] VITALS: BP 99/59
[2018-05-27] MEDS ORDERED: NITROGLYCERIN0.4 MG SUBLING (14:22)
[2018-05-27] MEDS ORDERED: IMDUR 30 MG TAB30 M1 PO (14:22)
[2018-05-27] MEDS ORDERED: ATORVASTATIN CA40 MG PO (14:22)
[2018-05-27 15:37] VITALS: BP 154/79
--- NOTE | 2018-05-27 16:41 | NUR ---
DARRIAN reviewed chart and spoke with nursing. Pt was transferred to 3W from ICU early this morning. Therapies evaluated pt and recommend post-acute. DARRIAN discussed with attending physician who states pt could be ready for discharge after dialysis. DARRIAN discussed 5N consult for admission to inpt acute rehab. Consult ordered. [facility] rehab evaluated pt and can accept pt. Pt will discuss with her family. Pt currently receiving dialysis. DARRIAN followed up with Morro Francis at [facility] regarding open case. Per Morro, the investigation is still open and they have not had a chance to visit the home and speak with pt's sons. Per Morro, attending physician can discharge pt home if he feels it is a safe discharge. However, the home has not been seen by the [facility] yet. The criminal investigator, Christy Macedo will need need additional information for their case. Discussed with risk mgmt. Medical photos taken on 05/26 will be submitted to [facility]. DARRIAN discussed with attending physician, who will encourage pt to go to 5N. No weekend discharge anticipated. DARRIAN will follow up with [facility] on Wednesday. DARRIAN is following to assist as needed with discharge planning.
[2018-05-27] MEDS ORDERED: PAIN & FEVER325 MG PO (18:01)
[2018-05-27] MEDS ORDERED: SEROQUEL 100 M100 M1 PO (18:01)
[2018-05-27] MEDS ORDERED: ZOLOFT 50 MG TA50 M1 PO (18:01)
[2018-05-27] MEDS ORDERED: ATIVAN1 MG PO (18:01)
--- NOTE | 2018-05-27 18:11 | NUR ---
PATIENT IS NOW DIALISING AND TOLERATING SO FAR WELL. SHE WILL BE DISCHARGED TO 5N THIS PM POST DIALYSIS. SHE IS AWARE OF THIS. NO COMPLAINS OF PAIN AT THIS ITME. WILL CONT WITH PLAN OF CARE.
[2018-05-27] MEDS ORDERED: SYNTHROID50 MCG PO (18:13)
[2018-05-27] MEDS ORDERED: GLUCAGEN1 MG/1 ML IM (18:13)
[2018-05-27] MEDS ORDERED: GLUTOSE GEL 1515 G1 PO (18:13)
[2018-05-27] MEDS ORDERED: GLUCOSE4 GM PO (18:13)
[2018-05-27] MEDS ORDERED: DEXTROSE 50%-WA50 ML IV PUSH (18:13)
[2018-05-27] MEDS ORDERED: NOVOLOG100 UNIT/1 SUBQ (18:13)
[2018-05-27 20:00] VITALS: BP 156/80
== END 2018-05-27 22:11 | DRG 640 ==
LOC: ER 11:25 → EROBS 12:59 → ICU 12:59 → 3W 05-27 01:04
PROVIDERS: Emergency Medicine; Internal Medicine Nephrology; Nurse Practitioner; ADMIT Internal Medicine
PROC: 5A1D70Z Performance of Urinary Filtration, Intermittent, Less than 6 Hours Per Day (ICD-10-PCS; principal; 2018-05-25)
PROC: 5A1D70Z Performance of Urinary Filtration, Intermittent, Less than 6 Hours Per Day (ICD-10-PCS; 2018-05-27)
DX: E87.5 Hyperkalemia (principal); N18.6 End stage renal disease; I12.0 Hypertensive chronic kidney disease with stage 5 chronic kidney disease or end stage renal disease; I71.2 Thoracic aortic aneurysm, without rupture; E21.3 Hyperparathyroidism, unspecified; F32.9 Major depressive disorder, single episode, unspecified; F41.9 Anxiety disorder, unspecified; I25.10 Atherosclerotic heart disease of native coronary artery without angina pectoris; E78.5 Hyperlipidemia, unspecified; G25.81 Restless legs syndrome; I25.119 Atherosclerotic heart disease of native coronary artery with unspecified angina pectoris; E11.22 Type 2 diabetes mellitus with diabetic chronic kidney disease; D63.8 Anemia in other chronic diseases classified elsewhere; E11.42 Type 2 diabetes mellitus with diabetic polyneuropathy; E11.51 Type 2 diabetes mellitus with diabetic peripheral angiopathy without gangrene; Z95.1 Presence of aortocoronary bypass graft; Z90.49 Acquired absence of other specified parts of digestive tract; Z87.442 Personal history of urinary calculi; Z88.6 Allergy status to analgesic agent; Z91.19 Patient's noncompliance with other medical treatment and regimen; Z86.14 Personal history of Methicillin resistant Staphylococcus aureus infection; Z83.3 Family history of diabetes mellitus; Z82.49 Family history of ischemic heart disease and other diseases of the circulatory system; Z80.9 Family history of malignant neoplasm, unspecified; I25.2 Old myocardial infarction; Z99.2 Dependence on renal dialysis
CPT/HCPCS: 10078; 32100

== ENCOUNTER 2018-05-27 17:43 | Inpatient (IN) | payer OTHER ==
[~2018-05-27] VITALS: Ht 162.6 cm; Wt 78.2 kg
--- NOTE | ~2018-05-27 | PLAN ---
[facility] [place] [address] REHAB UNIT PLAN OF CARE Name: JUANITO YODER Room #: 509-P ADM IN M.R.#: [id number] Admission: 05/27/18 ������������������ Attend Phys: eJremiah Whitaker MD Discharge: ������������������ Date of : 47 Report #: [id number] THIS REPORT FOR: //name// CC: Jeremiah Foss DATE OF SERVICE: 05/30/2018 PROGRESS NOTE/OVERALL PLAN OF CARE SUBJECTIVE: The patient is seen back in followup. She is in no distress. Last recorded temperature 98.2, pulse 72, respirations 18, blood pressure 151/71. The patient is alert. Her facial ecchymosis is gradually decreasing. Transfers are contact guard, gait contact guard 180 feet front-wheeled walker. In occupational therapy, lower body dressing is min assist, upper body is supervision. She does have functional comprehension that is noted. We do have speech therapy involved. Cognition is functional. Memory is mildly decreased. No need for speech therapy services for speech language. Cognition noted to be within functional limits. ASSESSMENT: 1. Medical complex with generalized debilitation. 2. Critical hyperkalemia. 3. End-stage renal disease, on hemodialysis. 4. Fall with facial trauma. Cognition noted to be within normal limits per speech therapy assessment. 5. Gait instability. 6. Ascending aortic aneurysm with chronic dissection conservative treatment. 7. Hypertension. 8. Coronary artery disease with history of myocardial infarction. 9. Type 2 diabetes mellitus. 10. Depression and anxiety with Psychiatry involved. 11. Premorbid peripheral neuropathy. PLAN: The overall plan of care is based on the preadmission screen, post-admission physician evaluation and information garnered from therapy assessments. 1. Estimated length of stay probably at least through the rest of the week. We will need to see what the therapist are seeing in team conference tomorrow. 2. Medical prognosis is reasonably good. 3. Anticipated interventions includes the interdisciplinary acute inpatient rehabilitation program. 4. Anticipated functional outcomes would be for the patient to become modified independent with transfers, mobility, ADLs improved endurance, safety, balance, fall prevention. 5. Discharge destination would be back to the home setting where she lives with [address] [address] REHAB UNIT PLAN OF CARE Name: JUANITO YODER Room #: 509-P [facility] IN [facility].#: [id number] Admission: 05/27/18 ������������������ Attend Phys: Jeremiah Whitaker MD Discharge: ������������������ Date of : 47 Report #: [id number] her niece and niece's spouse and the patient's son. 6. Expected therapy by discipline includes PT and OT 1-1/2 hours per day each five days a week throughout the duration of the acute inpatient rehabilitation stay. ��������������������������������������������� ���������������������������������������� By: ��������������������������������������������� 0900 36 Jeremiah Whitaker MD /PMT
[~2018-05-27 17:43] MED LIST changes: +ATORVASTATIN CA40 MG PO; +NITROGLYCERIN0.4 MG SUBLING; +NORVASC2.5 MG PO
[2018-05-27] MEDS ORDERED: PAIN & FEVER325 MG PO (18:01)
[2018-05-27] MEDS ORDERED: ATIVAN1 MG PO (18:01)
[2018-05-27] MEDS ORDERED: SEROQUEL 100 M100 M1 PO (18:01)
[2018-05-27] MEDS ORDERED: ZOLOFT 50 MG TA50 M1 PO (18:01)
[2018-05-27] MEDS ORDERED: GLUCAGEN1 MG/1 ML IM (18:13)
[2018-05-27] MEDS ORDERED: GLUCOSE4 GM PO (18:13)
[2018-05-27] MEDS ORDERED: NOVOLOG100 UNIT/1 SUBQ (18:13)
[2018-05-27] MEDS ORDERED: GLUTOSE GEL 1515 G1 PO (18:13)
[2018-05-27] MEDS ORDERED: DEXTROSE 50%-WA50 ML IV PUSH (18:13)
[2018-05-27] MEDS ORDERED: SYNTHROID50 MCG PO (18:13)
[2018-05-27 20:20] VITALS: BP 113/50
--- NOTE | 2018-05-28 | NUR ---
NEW PATIENT T0 509 FOR STRENGTHENING, HAS DIALYSIS MWF AND USES THE [employer] BUS TO GET THERE. LIVES WITH SON AND NIECE IN A HOUSE. HAD BM TODAY 05/27/18, LAST ACCUCHECK WAS 94 IMMEDIATELY BEFORE ARRIVAL HERE. PATIENT IS PLEASANT AND HAS SIGNED CONSENTS. NECK IS BRUISED, AV FISTULA BRUIT AND SHUNT
[2018-05-28 05:24] LABS: HEMATOCRIT 32.7 % (37.0-47.0); MCH 33.1 pg (26.0-34.0); MCHC 33.1 g/dL (28.0-37.0); MCV 100.1 fL (80.0-100.0); RBC 3.27 mil/uL (4.20-5.00); RDW 21.1 % (10.5-14.5); WBC 4.4 thou/uL (4.0-11.0)
[2018-05-28 05:34] LABS: HEMOGLOBIN 10.8 gm/dL (12.0-15.0)
[2018-05-28 05:49] LABS: CALCIUM 8.6 mg/dL (8.5-10.1); POTASSIUM 3.9 mmol/L (3.5-5.1)
[2018-05-28 05:52] LABS: CREATININE 3.2 mg/dL (0.6-1.0)
[2018-05-28 09:12] VITALS: BP 150/59
--- NOTE | 2018-05-28 14:39 | NUR ---
ASSUMED CARES AT 0700. PT AWAKE, A/O*4. DENIES PAIN. VITALS REMAINED STABLE. PT C/O NAUSEA AFTER LUNCH, ZOFRAN ORDERED. PCP STATED HE'D PREFER SBP BELOW 130, NORVASC INCREASED TO 5MG PO AM AND A ONETIME DOSE NORVASC 2.5MG ORDERED NOW R/T BP 146/72. PT CONTINUES TO HAVE BRUISES IN FACE, NECK AND ARMS, NO OPEN SKIN NOTED. THRILL AND BRUIT PRESENT ON DIALYSIS FISTULA ON RIGHT UPPER ARM. PT UP WITH 1 PERSON MIN ASSIST. CONTACT ISOLATION FOR MRSA MAINTAINED. Q1H VISUAL CHECKS. CALL LIGHT WITHIN REACH. FALL PRECAUTIONS IN PLACE
[2018-05-28 20:00] VITALS: BP 146/76
--- NOTE | 2018-05-29 05:26 | NUR ---
Assumed care of pt at 1915. Pt alert and oriented x4. Denies pain, nausea or dypsnea. Face remains bruised. Awake until approx 0100, since then has appeared to be sleeping when checked on hourly rounds. Fall precautions in place.
[2018-05-29 08:58] VITALS: BP 131/74
--- NOTE | 2018-05-29 19:36 | NUR ---
ASSUMED CARE AT APPROX 0715. PATIENT A/O X4. DENIES PAIN. BP ELEVATED, LOW PLATELET COUNT NOTED, REPORTED TO PROVIDER. MEDS GIVEN PER ORDERS. PATIENT PARTICIPATED IN THERAPY. REPORTED NAUSEA THIS AM, ZOFRAN GIVEN, PATIENT REPORTED RELIEF AND NO FURTHER NAUSEA THIS SHIFT. REPORTS LITTLE APPETITE. FALL PRECAUTIONS IN PLACE. PATIENT BECAME UPSET AND REFUSED FALL PRECAUTIONS AND TO USE O2 WHEN AMBULATING TO BATHROOM. WHEN PATIENT FINISHED TOILETING, PATIENT AGREED TO WALK BACK TO BED WITH ASSISTANCE, O2 REPLACED. VSS. PATIENT APOLOGIZED AND AGREED TO COMPLY WITH FALL PRECAUTIONS. NO FURTHER IMPULSIVITY. PATIENT ROUNDED ON HOURLY. RESTING IN BED AT CHANGE OF SHIFT.
[2018-05-29 19:43] VITALS: BP 151/71
--- NOTE | 2018-05-30 02:51 | NUR ---
assumed care at approx 1900 evening 05/29. pt sitting up in bed at change of shift. pt alert and oriented x4, appropriate and cooperative. swab of nares sent to lab for analysis. pt up to bathroom with walker and 1 assist before hs and pt had large bm. pt took hs meds with water tolerating well. pt appears to be sleeping soundly with hourly rounding checks. bed alarm on and call light in reach. will continue to monitor.
[2018-05-30 05:52] LABS: HEMOGLOBIN 9.9 gm/dL (12.0-15.0); MCH 33.2 pg (26.0-34.0); MCHC 32.8 g/dL (28.0-37.0); RBC 2.97 mil/uL (4.20-5.00); RDW 20.5 % (10.5-14.5); WBC 5.2 thou/uL (4.0-11.0)
[2018-05-30 06:08] LABS: CALCIUM 8.1 mg/dL (8.5-10.1); PHOSPHORUS 6.3 mg/dL (2.5-4.9); POTASSIUM 5.3 mmol/L (3.5-5.1)
[2018-05-30 06:20] LABS: CREATININE 5.8 mg/dL (0.6-1.0)
[2018-05-30 07:30] VITALS: BP 148/74
--- NOTE | 2018-05-30 11:40 | NUR ---
chart review, cm visited with pt while she up in recliner chair. noted bruising around eyes, on her face and neck. 021 2L/nc noted. intro to cm, transportation of care, and home health. pt a & o x 3 pleasant and able to make her needs know. " live in house with niece, nieces and my son. use crutch when up. o2 bedside and as needed. no usually need it when leave home. son takes me to my dr appointments, not drive but i would like to. manage own medication in pill box, feel safe at home"/jackie. per chart. will cont following as needed for dcp needs. noted in chart pt dialysis at [facility] in [place] , uses [employer] bus for transportation to and from dialysis.
--- NOTE | 2018-05-30 12:58 | NUR ---
Nutrition: pt admitted with hyperkalemia, ESRD, medical complexity to rehab unit. RD consult received. Pt is eating well but is not happy with diet restrictions. RD reviewed need for restrictions, K-5.3. Knows how to order meals and is eating well, observed 100% lunch today. No recent weight changes reported. BG 105-176. Offered diet review and pt refused. Consider low risk.
--- NOTE | 2018-05-30 14:06 | NUR ---
ASSUMED CARE AT APPROX 0715. PATIENT A/O X4. DENIES PAIN. VSS. UP X1 ASSIST GB AND WALKER. ISO PRECAUTIONS FOR MRSA IN NARES. PARTICIPATING IN THERAPY. DIALYSIS THIS AFTERNOON. BLOOD GLUCOSE MONITORED, TREATED PER ORDERS. LABS REVIEWED. FALL PRECAUTIONS IN PLACE. SATS MAINTAINED ON 2L O2. RESTING IN BED FOR DIALYSIS. WILL CONTINUE TO MONITOR.
--- NOTE | 2018-05-30 16:59 | NUR ---
DARRIAN received call from Morro Francis at [facility] requesting follow up. Pt was discharged to 5N on Wednesday, 05/27. DARRIAN provided contact info for certified legal investigator, Christy Macedo, in order to send additional clinical information for the case. DARRIAN received call back from DARRIAN Acuña at [facility]. (DARRIAN left voice message at [facility] on Wednesday, 05/27). Per Arianne, there have been issues with pt's family in the past. Arianne states that pt did leave with her son, John, for a while. When things were not working out at John' home, pt moved away for several months, before returning to live with her niece and family. Arianne was unaware of open case with [facility]. DARRIAN provided update to Arianne. DARRIAN spoke with Morro via phone to provide contact info for Arianne at [facility]. DARRIAN provided contact info for Morro and Christy to Risk Mgmt. DARRIAN is following to assist as needed with discharge planning.
[2018-05-30 20:49] VITALS: BP 150/86
--- NOTE | 2018-05-31 03:04 | NUR ---
assumed care at approx 1900 evening 05/30. pt sitting up in bed resting at change of shift. pt alert and oriented x4, appropriate and cooperative. 02 at 2l per n/c. pt denies shortness of breath. pt remains in isolation for mrsa in nares. pt appears to be sleeping soundly with hourly rounding checks. bed alarm on and call light in reach. will continue to monitor.
[2018-05-31 07:30] VITALS: BP 148/66
--- NOTE | 2018-05-31 10:43 | NUR ---
ASSUMED CARE AT 0700. PATIENT IS ALERT AND ORIENTED X4. PATIENT HAS BRUISING ON FACE THAT IS IMPROVING FROM HER FALL AT HOME. PATIENT RAMIREZ, SYSTEMS TECHNICIAN ARE EQUAL. ABD IS SOFT WITH BSX4. PATIENT IS IN ISOLATION FOR MRSA OF NARES. PATIENT IS ANURIC, AND IS ON DIALYSIS MWF. PATIENT HAS RIGHT ARM FISTULA FOR DIALYSIS THAT IS PATENT AND HAS BRUIT. UP IN SIDE OF BED FOR BREAKFAST. FALL AND SAFETY PROTOCOLS IN PLACE. DENIES ANY PAIN. CONTINUES TO PROGRESS TOWARDS D/C GOALS. WILL CONTINUE TO MONITER.
--- NOTE | 2018-05-31 13:15 | NUR ---
team meeting reccomendation: 06/03/18 dc home, hh (pt,ot,st, nursing and sw) and fww. list hh choice will cont following as needed for dc needs.
--- NOTE | 2018-05-31 16:08 | NUR ---
DARRIAN discussed case with RN EDNA. Discharge home is anticipated for Wednesday, 06/03 with HH services (PT/OT/RN/DARRIAN). DARRIAN left voice message for Morro Francis at [facility] and notified Christy Macedo, certified vehicle fire investigator, to provide update and notify of anticipated discharge. DARRIAN is following to assist as needed with discharge planning.
[2018-05-31 20:31] VITALS: BP 169/74
--- NOTE | 2018-06-01 02:07 | NUR ---
ASSUMED CARE OF PT AT 1915. PT ALERT AND ORIENTED X4. UP IN CHAIR THROUGH THE EVENING, TRANSFERRED TO BED WITH ASSIST OF TWO. DENIES PAIN OR DYPSNEA. C/O "STOMACH UPSET" X1, REFERRING TO IT REFLUX. UNABLE TO SLEEP AFTER RESTORIL GIVEN PO, SO LORAZEPAM 0.5 MG GIVEN PO ONE HOUR LATER. PT DID FALL ASLEEP, AND AWOKE A FEW MINUTES AGO WITH THE UPSET STOMACH. CHECKED ON HOURLY ROUNDS. FALL PRECAUTIONS IN PLACE.
[2018-06-01 06:37] LABS: CALCIUM 7.3 mg/dL (8.5-10.1); CREATININE 4.9 mg/dL (0.6-1.0); PHOSPHORUS 4.9 mg/dL (2.5-4.9)
[2018-06-01 08:30] VITALS: BP 139/59
--- NOTE | 2018-06-01 09:45 | NUR ---
cm spoke with risk management, reported that cm has been communication with dhss rt dcp and they have been notified that pt is dc home wednesday. no concerns or complaint about dc home.
--- NOTE | 2018-06-01 09:50 | NUR ---
cm visit with pt at bedside, she up in recliner chair, trae, a 7 o x 3 and able to make her needs know. cont to discuss dcp and where pt is planning on going at dc. " i am going back home with nieces and her and son lives there. not the son umer. live in [facility] [place]."/jackie. cm notified that pt will have dialysis in am on 12th then will be dc after. cm team to send updates to [facility]. cm left message with son umer rt pt will have dialysis before going home, need to know who will be picking up pt.
--- NOTE | 2018-06-01 10:25 | NUR ---
ASSUMED CARES AT 0700. PT AWAKE, ALERT AND ORIENTED *4. DENIES PAIN AT THIS TIME. VITALS REMAINED STABLE, BP 139/59, BP LOWERING MEDS ADMINISTERED TO MAINTAIN SBP <130 PER ORDER. PT CONTINUES TO HAVE BRUISING ON HER FACE, NECK AND ARM (IMPROVING). THRILL AND BRUIT PRESENT ON DIALYSIS FISTULA ON RIGHT UPPER ARM. PT HAVING DIALYSIS TODAY AFTERNOON. PT MADE PANCAKES WITH OT THIS AM, TOLERATED ACTIVITY WELL. ISOLATION MAINTAINED. PT UP WITH 1 PERSON MIN ASSIST, GAITBELT WALKER. TOLERATED ALL THERAPY WELL. Q1H VISUAL CHECKS. CALL LIGHT WITHIN REACH. FALL PRECAUTIONS IN PLACE
[2018-06-01 12:00] VITALS: BP 139/59
--- NOTE | 2018-06-01 12:02 | NUR ---
FAXED REFERRAL TO [facility] AT HOME SPOKE WITH FINN IN ADM. SHE RECEIVED REFERRAL AND CAN ACCEPT AT DC. PT. TO DC ON 05/27/11.
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
[2018-06-01 19:55] VITALS: BP 120/58
--- NOTE | 2018-06-02 03:48 | NUR ---
ASSESSMENT: PT REMAIN ALERT AND ORIENT TIMES FOUR. UP WITH SBA WITH WALKER/GB. VSS, AFEBRILE. DENIE PAIN. REQUESTED A SLEEP AID, XANAX WAS GIVEN. AT 0200 PT STATE THAT SHE STILL WAS AWAKE AND WANTED TAMAZEPAM. IT WAS EXPLAINED TO HER THAT IT WAS TOO LATE TO RECEIVE AND THAT SHE COULD REQUEST IT FOR TONIGHT BEFORE 2200. PT WAS UNDERSTANDING AND LATER WAS SLEEP BY THE NEXT HOURLY ROUND. DIALYSIS WAS DONE TODAY. FISUTLA INTACT. SLOW PROGRESS, WILL CONTINUE TO MONITOR.
[2018-06-02 08:56] VITALS: BP 153/80
--- NOTE | 2018-06-02 10:24 | NUR ---
ASSUMED CARES AT 0700. PT AWAKE, ALERT AND ORIENTED*4. PLEASANT AND IN A GOOD MOOD. DENIES PAIN. VITALS REMAIN STABLE. BRUISING ON FACE AND ARMS IMPROVING, NO OPEN SKIN. THRILL AND BRUIT PRESENT ON LEFT UPPER ARM DIALYSIS FISTULA. ISOLATION MAINTAINED. PT ATE 100% OF HER MEAL IN HER ROOM. UP WITH 1 PERSON MIN ASSIST AND TOLERATED WELL. Q1H VISUAL CHECKS. CALL LIGHT WITHIN REACH. FALL PRECAUTIONS IN PLACE
[2018-06-02 21:12] VITALS: BP 143/66
--- NOTE | 2018-06-03 01:02 | NUR ---
PT ALERT AND ORIENTED X 4. 02 0N AT 2L PER NC CONT. BRUISING NOTED ON FACE, NECK AND ARMS. BLOOD SUGAR 177 AT HS. INSULIN GIVEN ORDERED. PT DENIES PAIN OR DISCOMFORT. LORAZEPAM GIVEN AT HS PER PT REQUEST. BED ALARM ON FOR SAFETY. PT APPEARS TO BE SLEEPING ON HOURLY ROUNDS.
[2018-06-03 07:30] VITALS: BP 148/68
--- NOTE | 2018-06-03 09:50 | NUR ---
re checked with pt on who will be bring her home and what time. pt has not went to dialysis yet and was told it would be in morning to allow time for dc. cm passed on information to 5n team to check and see what time dialysis is aris for. will cont following as needed for dc needs.
--- NOTE | 2018-06-03 14:02 | NUR ---
DCP FAXED DIALYSIS FLOWSHEETS TO [facility] SPOKE WITH INTAKE AND THEY RECEIVED FLOWSHEETS. PT. TO HAVE DIALYSIS THIS AFTERNOON AND FINISH BY 1700. DCP TO FOLLOW.
[2018-06-03] MEDS ORDERED: RESTORIL30 MG PO (15:16)
[2018-06-03] MEDS ORDERED: CARVEDILOL25 MG PO (15:16)
[2018-06-03] MEDS ORDERED: AMLODIPINE BESYL5 M1 PO (15:16)
[2018-06-03] MEDS ORDERED: LORAZEPAM 0.50.5 MG PO (15:16)
--- NOTE | 2018-06-03 15:39 | NUR ---
PT. DISCHARGING TODAY TO HOME WITH [facility] FERRERA FAXED DC ORDERS/SUMMARY SPOKE WITH JANNET IN INTAKE AND SHE RECEIVED DC ORDERS AND WILL NOTIFY PT. TIME OF VISITS.
--- NOTE | 2018-06-03 16:43 | NUR ---
DISCHARGE NOTE: DARRIAN reviewed chart and spoke with nursing. Pt is medically stable for discharge home today with HH services through [facility]. DARRIAN left voice message for Morro Francis at [facility] to notify of discharge plan and HH provider. Pt to resume her regular outpatient dialysis at [facility]. DARRIAN notified [facility] liaison of open case with [facility], to pass on to their clinical team. Pt's family to provide transportation home this evening after dialysis. DARRIAN faxed final discharge orders/summary to [facility]. No additional SW needs identified at this time, but is available to assist should needs arise.
[2018-06-03 17:00] VITALS: BP 143/66
--- NOTE | 2018-06-03 17:59 | NUR ---
DIALYSIS COMPLTED TODAY. NO COMPLAINTS OF PAIN OR DISCOMFORT. VERY PLEASANT AAAXO4. O2 AT 3L NASAL CANNULA. DISCHARGED HOME WITH FAMILY
--- NOTE | 2018-06-07 16:01 | H ---
[facility] [place] [address] HISTORY AND PHYSICAL Name: JUANITO YODER Room #: 509-P [facility] IN M.R.#: [id number] Admission: 05/27/18 ������������������ Attend Phys: Jeremiah Whitaker MD Discharge: 06/03/18 ������������������ Date of : 47 Report #: [id number] THIS REPORT FOR: //name// CC: Jeremiah Foss DATE OF SERVICE: 05/28/2018 HISTORY OF PRESENT ILLNESS: The patient is a 73-year-old white female originally admitted to [facility] on 05/10/2018 after she missed some hemodialysis sessions resulting in critically elevation of potassium of 8.9. She was resumed on hemodialysis per Nephrology. The history is that she did have a fall 2 weeks ago when she fell off the kitchen stool and hit her face into the refrigerator. She has extensive bruising to her face and neck. Denied any loss of consciousness. She did, however, missed a couple of hemodialysis sessions as noted above. While hospitalized, she was seen by CTS due to ascending aortic aneurysm with chronic dissection that had enlarged in the past 3 years. No emergency and CTS recommended observation with conservative treatment at this time and other risk factor control due to such high risk surgery. The patient also was evaluated by Psychiatry due to depression symptoms and medication adjustments were made. The patient was admitted to the acute inpatient rehabilitation [facility] with critical hyperkalemia, end-stage renal disease, on hemodialysis and with the fall, potential closed head injury. She also has gait instability with decreased functional ability and balance. She did have a CT of the head, which showed no acute hemorrhage. There may be a meningioma or schwannoma present left cerebellopontine angle. PAST MEDICAL HISTORY: The patient has a prior history of coronary artery bypass grafting, diabetes mellitus, heart disease, hypertension, and renal disease. PAST SURGICAL HISTORY: As noted above with coronary artery bypass grafting. She has had a hysterectomy, left shoulder surgery, right foot surgery, left breast biopsy, and right upper extremity fistula. FAMILY HISTORY: Significant for heart disease, cancer, diabetes, and hypertension. HABITS: Cigarettes. She does have a positive smoking history. Alcohol use occasionally. No history of recreational drug use. MEDICATIONS: Please see the full medication listing. This includes vitamins, herbals, and supplements. ALLERGIES: CODEINE, IBUPROFEN, AND SPIRONOLACTONE. SOCIAL HISTORY: Lives with niece, spouse and the patient's son in a house with [place] [phone] HISTORY AND PHYSICAL Name: JUANITO YODER Room #: 509-P [facility] IN ..#: [id number] Admission: 05/27/18 ������������������ Attend Phys: Jeremiah Whitaker MD Discharge: 06/03/18 ������������������ Date of : 47 Report #: [id number] entry steps. She was independent with ADLs. Utilized a single axillary crutch on the right. IADLs provided by family. She is right-hand dominant. REVIEW OF SYSTEMS: Did not sleep as well last night. Medications are being adjusted as per Internal Medicine. No fever, chills, chest pain, shortness of breath or abdominal discomfort. No complaints of headache. PHYSICAL EXAMINATION: GENERAL: A 73-year-old white female, was seen earlier. She was in no distress. VITAL SIGNS: Last recorded temperature 98.1, pulse 74, respirations 18, and blood pressure 113/50. She was responsive and appropriate. There may be some mild latency to her responses. She has extensive facial bruising from her fall over her bilateral eyes, cheeks, neck. She has hematoma on the right forehead. She is on nasal prong O2. CHEST: Sounded clear to auscultation. CARDIOVASCULAR: Regular rate and rhythm. ABDOMEN: Bowel sounds positive, nontender. EXTREMITIES: Decreased range of motion left upper extremity, has had prior shoulder replacement per history. Functional range of motion right upper extremity, some diffuse weakness. Strength is grade 4-/5. Lower extremities strength is probably a grade 4-/5. Tone appeared to be intact. She has been min assist with basic functional mobilities and has an unsteady gait with some scissoring noted with attempt at short distance front-wheeled walker ambulation. She may have somewhat of a depressed affect. ASSESSMENT: A 73-year-old white female with the following problem list: 1. Medical complexity with generalized debilitation. 2. Critical hyperkalemia. 3. End-stage renal disease, on hemodialysis. 4. Fall with possible closed head injury. Considerable facial trauma. She had missed a couple of dialysis appointments per report. We will have speech therapy see her and neuropsychology is involved. 5. Gait instability. 6. Ascending aortic aneurysm with chronic dissection, conservative treatment. 7. Hypertension. 8. Coronary artery disease with history of myocardial infarction. 9. Type 2 diabetes mellitus. 10. Depression and anxiety. Psychiatry is involved. 11. Premorbid peripheral neuropathy. PLAN: The patient is admitted for acute in-hospital inpatient rehabilitation. From a post-admission physician evaluation perspective, there are no relevant changes since the preadmission screening. Please see the above review of prior and current medical and functional conditions and comorbidities. Please see the prior and current medical and functional conditions and comorbidities. As far as risk of complication, she does have the multiple medical comorbidities [address] [address] HISTORY AND PHYSICAL Name: JUANITO YODER Room #: 509-P [facility] IN ..#: [id number] Admission: 05/27/18 ������������������ Attend Phys: Jeremiah Whitaker MD Discharge: 06/03/18 ������������������ Date of : 47 Report #: [id number] as noted above. Initial plan of care involves the interdisciplinary acute inpatient rehabilitation program with goal of maximizing the patient's functional independence, so she can hopefully return back to her prior living situation. Measurable functional goals would be for her to become modified independent with transfers, mobility and ADLs with modified independence at a walker level as well as further assessment regarding cognitive issues. Prognosis is reasonably good with estimated length of stay probably at least 7-14 days pending progress. The patient meets diagnostic criteria for an acute in-hospital inpatient rehabilitation stay. She meets medical necessity criteria. We will have the loss control consultant physicians continue to follow. She does have the tolerance for therapies and has appropriate discharge goals back to the home setting. ��������������������������������������������� <ELECTRONICALLY SIGNED> ���������������������������������������� By: Jeremiah Whitaker MD ��������������������������������������������� 06/07/18 1601 0904 0935 Jeremiah Whitaker MD /nt
== END 2018-06-03 18:00 | disposition home health service (06) | DRG 947 ==
PROVIDERS: Internal Medicine Nephrology; Nurse Practitioner Family; ADMIT Physical Medicine & Rehabilitation
PROC: 5A1D70Z Performance of Urinary Filtration, Intermittent, Less than 6 Hours Per Day (ICD-10-PCS; principal; 2018-05-30)
PROC: 5A1D70Z Performance of Urinary Filtration, Intermittent, Less than 6 Hours Per Day (ICD-10-PCS; 2018-06-01)
PROC: 5A1D70Z Performance of Urinary Filtration, Intermittent, Less than 6 Hours Per Day (ICD-10-PCS; 2018-06-03)
DX: R53.81 Other malaise (principal); N18.6 End stage renal disease; I12.0 Hypertensive chronic kidney disease with stage 5 chronic kidney disease or end stage renal disease; E87.5 Hyperkalemia; R26.9 Unspecified abnormalities of gait and mobility; E11.22 Type 2 diabetes mellitus with diabetic chronic kidney disease; F17.210 Nicotine dependence, cigarettes, uncomplicated; I25.10 Atherosclerotic heart disease of native coronary artery without angina pectoris; F32.9 Major depressive disorder, single episode, unspecified; F41.9 Anxiety disorder, unspecified; E11.42 Type 2 diabetes mellitus with diabetic polyneuropathy; J44.9 Chronic obstructive pulmonary disease, unspecified; E03.9 Hypothyroidism, unspecified; R51 Headache; I71.4 Abdominal aortic aneurysm, without rupture; F41.8 Other specified anxiety disorders; G31.84 Mild cognitive impairment of uncertain or unknown etiology; S09.90XA Unspecified injury of head, initial encounter; W18.39XA Other fall on same level, initial encounter; Y93.89 Activity, other specified; Z88.6 Allergy status to analgesic agent; Z88.8 Allergy status to other drugs, medicaments and biological substances; I25.2 Old myocardial infarction; Z99.2 Dependence on renal dialysis; Z95.1 Presence of aortocoronary bypass graft; Z90.710 Acquired absence of both cervix and uterus; Z83.3 Family history of diabetes mellitus; Z82.49 Family history of ischemic heart disease and other diseases of the circulatory system; Z80.9 Family history of malignant neoplasm, unspecified; Z80.8 Family history of malignant neoplasm of other organs or systems; Y92.89 Other specified places as the place of occurrence of the external cause; Y99.8 Other external cause status
CPT/HCPCS: 10112; 32100

== ENCOUNTER 2019-03-13 09:57 | Inpatient (IN) | payer OTHER ==
[~2019-03-13] VITALS: Ht 165.1 cm; Wt 68.0 kg
--- NOTE | ~2019-03-13 | H ---
[facility] [place] [address] HISTORY AND PHYSICAL Name: JUANITO YODER Room #: 438-P ADM IN M.R.#: [id number] Admission: 03/13/19 Attend Phys: Jose Alfredo Foss MD Discharge: Date of : 47 Report #: [id number] THIS REPORT FOR: //name// CC: Jose Alfredo Foss CHIEF COMPLAINT: Trouble breathing, bad cold, chest pain. HISTORY OF PRESENT ILLNESS: The patient dialyzes at the [facility] and reports Dr. Moise is her attending physician there. She continues to smoke, but over the last 1-2 weeks, she developed a "cold" with runny nose and a cough and purulent sputum. Dr. Moise prescribed a course of Levaquin for her, and her last tablet was several days ago. Some of her cold symptoms have improved, but the cough and shortness of breath has gotten worse. She was not strong enough to go to her scheduled dialysis today because of her breathing trouble, so she came here instead. In the Emergency Room, she improved to some degree with nebulizer treatments, but her blood gases showed significant hypoxemia and admission was indicated. PAST MEDICAL HISTORY: Important for ESRD, on chronic dialysis therapy. She has had coronary artery bypass grafting, and a cardiac catheterization done in 07/2016 showed diffuse disease with patent grafts and occluded [place] vessels and branches partially filled with collaterals. She was seen in medical consultation by Dr. Srinivasa Spear on 05/26/2018 and medical therapy was recommended at that time. She was noted to have a progressive dilation of an ascending thoracic aortic aneurysm and a CT arteriogram was performed that showed dissection and flap, that has been followed medically. She has type 2 diabetes, hypertension, hyperparathyroidism, depression and anxiety; she has had problems with bilateral infections of the skin of both feet, but these are currently stable and well healed. She has chronic depression and anxiety. She has peripheral diabetic neuropathy, restless legs, and difficulty with her dialysis access fistula. ALLERGIES: CODEINE, IBUPROFEN and SPIRONOLACTONE. She is not taking aspirin (she was told) because she is already taking clopidogrel. SOCIAL HISTORY: She lives with family. She does not drink alcohol, but continues to smoke cigarettes. She is interested in stopping "I think now is a good time to go ahead and quit completely." She quite clearly states that she does not want resuscitation and wants to have a "no code" bracelet on her wrist like she did on her previous admission. Medications administered at the [facility] while on dialysis: Acetaminophen, [address] [address] HISTORY AND PHYSICAL Name: JUANITO YODER Room #: 438-P [facility] IN ..#: [id number] Admission: 03/13/19 Attend Phys: Jose Alfredo Foss MD Discharge: Date of : 47 Report #: [id number] calcium carbonate, ____, loperamide, ____, erythropoietin beta, ____, and a protein bar. HOME MEDICATIONS: Atorvastatin 40 mg daily, Nephrocaps, carvedilol 25 mg 2 tablets in the morning and 2 tablets in the evening, clonazepam 0.5 mg twice daily, clopidogrel 75 mg daily, isosorbide mononitrate 60 mg daily, levothyroxine 50 mcg daily and loperamide 2 mg as necessary. She also takes nitroglycerin tablets 0.4 mg, sometimes 2 or 3 at a time for chest pain, olanzapine 5 mg in the morning and 7.5 mg at night. Sertraline 100 mg at bedtime and Renvela 800 mg 3 tablets with meals 3 times a day. Hydroxyzine pamoate 50 mg twice daily from Dr. Orona has helped tremendously with her itching. REVIEW OF SYSTEMS: Her anxiety and depression is much better since she started seeing Dr. Orona (psychiatrist) and taking the clonazepam and olanzapine and hydroxyzine as mentioned above. OBJECTIVE: GENERAL: The patient was examined during dialysis. She had diffuse wheezing and light cough throughout the anterior chest. She was awake, alert and oriented. CARDIOVASCULAR: S1 and S2 were difficult to hear behind her breath sounds. ABDOMEN: Soft and nontender, without hepatosplenomegaly or masses. EXTREMITIES: Had no edema. The skin and the chronic ulcers of both feet were well healed. There was decrease in sensation of diabetic neuropathy present. IMPORTANT LABORATORY DATA: Her potassium is 5.8, BUN is 75, creatinine 7.7. Calcium is 10.2. Magnesium is 2.7. Albumin is 3.6. Troponin is mildly elevated at 0.06. Hemoglobin is 11.8. WBCs are 6.2 thousand with a mild left shift of 80.5% neutrophils. Platelets are mildly low at 109,000. On room air, arterial blood gas showed a pH of 7.286, her pCO2 was 46.3, and pO2 was 53.3 with a base excess of -5. Chest x-ray showed no acute changes. ASSESSMENT: 1. Acute hypoxic respiratory failure. 2. Acute viral illness. 3. Significant chronic obstructive pulmonary disease. 4. On chronic dialysis. 5. Dissected thoracic aorta identified on her 05/26/2018 admission. 6. Chronic chest pain, both exertional and postprandial elements, treated effectively with p.r.n. nitroglycerin on top of isosorbide mononitrate therapy. 7. Coronary artery disease. 8. Other multiple medical problems appear stable at this time. [facility] [address] [place] [address] HISTORY AND PHYSICAL Name: JUANITO YODER Room #: 438-P ADM IN ..#: [id number] Admission: 03/13/19 Attend Phys: Jose Alfredo Foss MD Discharge: Date of : 46 Report #: [id number] PLAN: She is admitted and will be transferred to a telemetry unit. She wishes to be a do not resuscitate. She will be seen in Pulmonary Medicine consultation and Cardiology consultation. Noncontrast CT scan will be used to assess the stability of her thoracic aortic aneurysm. By: 2300 0001 Jose Alfredo Foss MD /nt
[2019-03-13 09:57] VITALS: BP 120/37
[~2019-03-13 09:57] MED LIST changes: +AMLODIPINE BESYL5 M1 PO; +CARVEDILOL25 MG PO; +DEXTROSE 50%-WA50 ML IV PUSH; +GLUCAGEN1 MG/1 ML IM; +GLUCOSE4 GM PO; +GLUTOSE GEL 1515 G1 PO; +LORAZEPAM 0.50.5 MG PO; +PAIN & FEVER325 MG PO; +RESTORIL30 MG PO; +SEROQUEL 100 M100 M1 PO; +SYNTHROID50 MCG PO; +ZOLOFT 50 MG TA50 M1 PO
[2019-03-13 10:40] LABS: HCO3 21.6 mmol/L (22.0-26.0); PCO2 46.3 mmHg (35.0-45.0); PO2 53.3 mmHg (80.0-100.0); pH 7.286 (7.360-7.450); sO2 83.6 % (92.0-98.0)
[2019-03-13 11:00] LABS: BASOPHILS 0.6 % (0.0-2.0); HEMATOCRIT 36.9 % (37.0-47.0); HEMOGLOBIN 11.8 gm/dL (12.0-15.0); LYMPHOCYTES 10.7 % (24.0-44.0); MCHC 31.9 g/dL (28.0-37.0); MCV 94.1 fL (80.0-100.0); MONOCYTES 6.2 % (1.0-8.0); PLATELET COUNT 109 thou/uL (150-400); POLYS 80.5 % (36.0-66.0); RBC 3.93 mil/uL (4.20-5.00); RDW 15.8 % (10.5-14.5); WBC 6.2 thou/uL (4.0-11.0)
[2019-03-13 11:16] LABS: CALCIUM 10.2 mg/dL (8.5-10.1); CREATININE 7.7 mg/dL (0.6-1.0); POTASSIUM 5.8 mmol/L (3.5-5.1)
[2019-03-13 11:18] LABS: APTT 32.5 Seconds (24.5-32.8); INR 1.1; PROTIME 10.9 Seconds (9.3-11.4)
[2019-03-13 11:27] LABS: ALBUMIN 3.6 g/dL (3.4-5.0); MAGNESIUM 2.7 mg/dL (1.8-2.4); TOTAL BILIRUBIN 0.4 mg/dL (<0.1-1.0); TOTAL PROTEIN 7.6 g/dL (6.4-8.2); TROPONIN-I 0.07 ng/mL (<0.06)
--- NOTE | 2019-03-13 15:02 | EKG ---
[place] [address] [facility] [place] [address] ELECTROCARDIOGRAM REPORT Name: JUANITO YODER Room #: [facility]#: [id number] Admission: 03/13/19 Attend Phys: Discharge: Date of : 47 Report #: [id number] THIS REPORT FOR: //name// [facility] ED Test Date: 2019-03-13 Test Time: 10:00:54 Pat Name: JUANITO YODER Department: Room: Gender: F Manager Nuclear: [facility] : 1945 Requested By: Luis Daniel Estevez Order Number: [id number] MD: Guerrero Glez Measurements Intervals [place] Rate: 57 P: 0 ME: 55 QRS: 43 QRSD: 128 T: 133 QT: 511 QTc: 498 Interpretive Statements Atrial fibrillation. Nonspecific intraventricular conduction delay Borderline repolarization abnormality Compared to ECG 05/25/2018 17:52:51 Electronically Signed On 03-13-2019 15:02:10 [employer]AND DEVELOPMENT PROJECT MANAGER by Guerrero Glez [email or web address] <ELECTRONICALLY SIGNED> By: Guerrero Glez MD 03/13/19 1502 1000 Franki Glez MD /LILIA
[2019-03-13 16:07] VITALS: BP 165/65
[2019-03-13 16:18] VITALS: BP 175/75
[2019-03-13 16:41] VITALS: BP 151/61
--- NOTE | 2019-03-13 19:34 | NUR ---
ASSUMED CARE OF PATIENT APPROX 1630. PT A&oX4, VSS, DENIES PAIN. PATIENT TOLERATING REG DIET. PATIENT REMAINS ON 2L O2, SATS AT 93%. PATIENT RECEIVING DIALYSIS TODAY. NO SIGNS OF DISTRESS, LUNGS CLEAR, BREATHING REG. WILL CONTINUE TO MONITOR.
[2019-03-13 19:50] VITALS: BP 152/77
[2019-03-14 00:15] VITALS: BP 136/69
--- NOTE | 2019-03-14 03:40 | NUR ---
ASSSUMED CARE OF PT AT 1900HRS. PT IS AOX4 AND LETS NEEDS BE KNOWN. FALL PRECAUTION IN PLACE. PT COMPLETED DIALYSIS THIS SHIFT AND IS ON M// SCHEDULE. DR MARC SAW PT THIS SHIFT. NEW ORDERS IMPLEMENTED. PT DENIES NAUSEA OR PAIN. PT WAS ABLE TO GET COMFORTABLE AND SLEEP PART OF THE SHIFT. VSS AND NO S/S ACUTE DISTRESS. WILL CONTINUE TO MONITOR.
[2019-03-14 04:06] LABS: GLYCOHEMOGLOBIN (HGB A1C) 7.4 % (4.8-5.6)
[2019-03-14 05:13] VITALS: BP 148/72
[2019-03-14 08:30] VITALS: BP 112/53
[2019-03-14 09:07] LABS: HEPATITIS B SURFACE AG Negative (Negative)
--- NOTE | 2019-03-14 12:31 | 2DMMODE ---
[facility] [place] [address] 2 D/M-MODE ECHOCARDIOGRAM Name: JUANITO YODER Reymundo Room #: 438-P [facility] IN .R.#: [id number] Admission: 03/13/19 Attend Phys: Jose Alfredo Foss, Discharge: Date of : 46 Report #: [id number] THIS REPORT FOR: //name// APPROVED REPORT Study performed: 03/14/2019 10:59:57 EXAM: Comprehensive 2D, Doppler, and color-flow Echocardiogram Patient Location: Bedside Room #: 438 Status: routine BSA: 1.75 HR: 84 bpm BP: 112/53 mmHg Rhythm: Sinus arrhythmia Other Information Study Quality: Good/heavy breathing Indications History of aortic dissection, aorta aneurysm. Short of breath, chest pain. (last echo done 05/2018) Hx: CABG, COPD, HTN, ESRD, DM. 2D Dimensions RVDd: 44.81 mm IVSd: 14.00 (7-11mm) LVOT Diam: 19.84 (18-24mm) LVDd: 55.91 mm PWd: 8.57 (7-11mm) Ascending Ao: 67.26 (22-36mm) LVDs: 50.89 (25-40mm) Aortic Root: 35.44 mm Volumes Left Atrial Volume (Systole) Single Plane 4CH: 93.98 mL Single Plane 2CH: 73.68 mL LA ESV Index: 51.00 mL/m2 Aortic Valve AoV Peak Melvin.: 1.83 m/s AO Peak Gr.: 13.40 mmHg LVOT Max P.10 mmHg AO Mean Gr.: 6.67 mmHg AO V2 Mean: 1.21 m/s LVOT Max V: 1.01 m/s AO V2 VTI: 44.01 cm MILAGROS Vmax: 1.71 cm2 [facility] [place] [address] 2 D/M-MODE ECHOCARDIOGRAM Name: JUANITO YODER Room #: 438-P [facility] IN .R.#: [id number] Admission: 03/13/19 Attend Phys: Jose Alfredo Foss, Discharge: Date of : 46 Report #: [id number] Mitral Valve E/A Ratio: 1.7 MV Decel. Time: 145.08 ms MV E Max Melvin.: 1.28 m/s MV A Melvin.: 0.74 m/s MV PHT: 42.07 ms IVRT: 92.27 ms Pulmonary Valve PV Peak Melvin.: 1.29 m/s PV Peak Gr.: 6.67 mmHg Pulmonary Vein P Vein S: 0.43 m/s P Vein D: 0.65 m/s P Vein S/D Ratio: 0.66 Tricuspid Valve TR Peak Melvin.: 3.35 m/s RAP Estimate: 10.00 mmHg TR Peak Gr.: 45.00 mmHg PA Pressure: 55.00 mmHg Left Ventricle The left ventricle is normal size. There is hypokinesis of the basal inferolateral segment. Moderate basal septal hypertrophy is present. Left ventricular systolic function is normal. LVEF is 50-55%. Moderate diastolic dysfunction is present (pseudonormal filling). Right Ventricle Right ventricle is mildly dilated. Right ventricle is mildly hypokinetic. Atria Left atrium is severely dilated. Right atrium is mildly dilated. Aortic Valve Aortic valve is thickened and calcified. Trace to mild aortic regurgitation. Mitral Valve Mitral valve leaflets are moderately thickened and calcified. Moderate mitral annular calcification. Mild to moderate mitral regurgitation. No evidence of mitral valve stenosis. Tricuspid Valve [facility] [address] [place] [address] 2 D/M-MODE ECHOCARDIOGRAM Name: JUANITO YODER Reymundo Room #: 438-P [facility] IN [facility].#: [id number] Admission: 03/13/19 Attend Phys: Jose Alfredo Foss, Discharge: Date of : 46 Report #: [id number] The tricuspid valve is normal in structure. Mild to moderate tricuspid regurgitation. Estimated PAP is 55mmHg. Pulmonic Valve The pulmonary valve is normal in structure. Mild pulmonic regurgitation. Great Vessels The aortic root is normal in size. The ascending aorta is severely dilated at 6.7cm. Cannot exclude possibility of arotic dissection. IVC is dilated and collapses >50% with inspiration. Pericardium There is no pericardial effusion. <Conclusion> The left ventricle is normal size. Left ventricular systolic function is normal. Moderate diastolic dysfunction is present (pseudonormal filling). Right ventricle is mildly dilated. Left atrium is severely dilated. Aortic valve is thickened and calcified. Mitral valve leaflets are moderately thickened and calcified. Mild to moderate mitral regurgitation. Mild to moderate tricuspid regurgitation. Estimated PAP is 55mmHg. The ascending aorta is severely dilated at 6.7cm. Cannot exclude possibility of arotic dissection. <ELECTRONICALLY SIGNED> By: Srinivasa Spear MD 03/14/19 1231 1231 1231 Srinivasa Spear MD /INF
--- NOTE | 2019-03-14 13:42 | NUR ---
RD consult received for possible malnutrition. Pt admitted with COPD. Hx of + tobacco use, ESRD w/dialysis. Pt not available at time of visit, chart reviewed. Wts usual variable with dialysis. Current down 8 lb x 1 yr ago. K+ elevated, missed a dialysis treatment prior admit. Lunch tray observed and pt ate 100% of meal. DNR status. Low nutrition risk
--- NOTE | 2019-03-14 17:18 | NUR ---
ASSESSMENT-PT LIVES AT HOME WITH HER NIECE, NIECE'S SPOUSE, AND HER SON TEAGAN. PT USES HER CRUTCH FOR MOBILITY AND HAS A WALKER BUT NOT CURRENTLY USING IT. PT TAKES THE [employer] BUS TO AND FROM [facility] ON M-W- 1030 SHIFT. PT HAS HAD [facility] SERVICES IN THE PAST. PT HAS 02 FROM [facility] THAT SHE USES NEEDED. PT SAYS SHE WOULD LIKE TO GET A SMALL PORTABLE TANK FOR HOME USE. CASE DISCUSSED WITH DR MARC. FOLLOWING TO ASSIST WITH DC PLANNING.
[2019-03-14 21:37] VITALS: BP 125/56
--- NOTE | 2019-03-15 02:03 | NUR ---
ASSESSED AT START OF SHIFT A&OX4. IV INTACT AND SALINE LOCK. ISOLATION MAINTAINED FOR MRSA. FISTULA RT UA GETS DIALYSIS MWF. EVENING MEDS GIVEN AND TYLENOL GIVENX1. EAT SOME MIDNIGHT SNACK AND PT SLEPT THE REST OF THE SHIFT WILL CONT TO MONITOR
[2019-03-15 05:27] VITALS: BP 115/47
[2019-03-15 08:00] VITALS: BP 138/53
--- NOTE | 2019-03-15 08:59 | HC ---
[facility] [place] [address] CONSULTATION Name: JUANITO YODER Room #: 438-P [facility] IN .R.#: [id number] Admission: 03/13/19 Attend Phys: Jose Alfredo Foss MD Discharge: Date of : 46 Report #: [id number] THIS REPORT FOR: //name// CC: Jose Alfredo Foss REASON FOR CONSULTATION: End-stage renal disease. REASON FOR PRESENTATION: Shortness of breath and chest pain. HISTORY OF PRESENT ILLNESS: A 73-year-old with past medical history of coronary artery disease, COPD, continued tobacco abuse, hypertension, diabetes mellitus, for which she is maintained on hemodialysis every Wednesday, Wednesday, and Wednesday. She presented yesterday because of shortness of breath that had been worsening over the last few days. She was found to be hypoxemic and was admitted for further evaluation. She dialyzed yesterday as this is her usual dialysis. I am being consulted to manage her end-stage renal disease. PAST MEDICAL HISTORY: 1. End-stage renal disease. 2. Diabetes mellitus. 3. Chronic obstructive pulmonary disease. 4. Hypertension. 5. Coronary artery disease, post coronary artery bypass graft. 6. Hyperparathyroidism. 7. Anemia. ALLERGIES: CODEINE AND IBUPROFEN. SOCIAL HISTORY: Lives with her family. Continues to smoke. FAMILY HISTORY: Significant for hypertension. HOME MEDICATIONS: 1. Plavix. 2. Atorvastatin. 3. Isosorbide mononitrate. 4. Carvedilol. 5. Amlodipine. 6. Levothyroxine. 7. Sevelamer. REVIEW OF SYSTEMS: GENERAL: Significant for weakness and lethargy. CARDIOVASCULAR: Significant for chest pain or shortness of breath. PULMONARY: Significant for cough and cold symptoms. GASTROINTESTINAL: No nausea or vomiting. MUSCULOSKELETAL: Occasional arthralgias. [facility] [address] [place] [address] CONSULTATION Name: JUANITO YODER Reymundo Room #: 438-P [facility] IN [place]#: [id number] Admission: 03/13/19 Attend Phys: Jose Alfredo Foss MD Discharge: Date of : 46 Report #: [id number] PHYSICAL EXAMINATION: GENERAL: She is alert and oriented. Blood pressure is 148/72, and temperature 36.9. HEAD AND NECK: No jugular venous distention. CHEST: Limited air entry bilaterally. CARDIOVASCULAR: No rub detected. ABDOMEN: Soft and nontender. EXTREMITIES: Lower extremities, no edema. Upper extremities, she does have a functioning AV fistula with good bruit and thrill. LABORATORY DATA: Reviewed. White blood cell count 6.2, hemoglobin 11.8, platelet 109. Sodium 133, potassium 5.8, BUN 75, and creatinine 7.7. ASSESSMENT, IMPRESSION, AND PLAN: 1. End-stage renal disease. 2. Hyperkalemia. 3. Tobacco abuse. 4. Coronary artery disease, status post CABG with extensive intervention in the last couple of years. 5. We will continue with the usual hemodialysis every Wednesday, Wednesday and Wednesday. 6. Usual treatment for her other comorbid conditions including her coronary artery disease as per the primary team. <ELECTRONICALLY SIGNED> By: Chin Sneed MD 03/15/1958 0752 Chin Sneed MD /nt
--- NOTE | 2019-03-15 13:46 | NUR ---
PT A&OX4. AMBULATES WITH ASSIST X1 AND WALKER. O2 @ 2 L PER NC. PIV INTACT IN R FA, R UA FISTULA NOTED. PT WILL HAVE DIALYSIS LATER TODAY, PT IS ANURIC. TOLERATING PO WELL. CALL LIGHT W/I REACH, CHAIR ALARM IS ON. WILL CONT POC.
--- NOTE | 2019-03-15 14:08 | NUR ---
eliel Toro for [facility] was here to visit with the pt about her home o2 setup and options. They will arrange for some testing at her home for possible conserving device/small portables once she is dc'd from the hospital. Pt is getting dialysis today. PT dc'd the pt. Will follow along to resume her outpt dialysis at mt.
[2019-03-15 14:10] VITALS: BP 138/53
[2019-03-15 16:28] VITALS: BP 140/65
[2019-03-15 23:11] VITALS: BP 134/68
--- NOTE | 2019-03-16 03:17 | NUR ---
ASSESSED PT. GETTING DIALYSIS THIS SHIFT. BP MED NOT ADMINISITERED THIS SHIFT DUE TO DIALYSIS. INSULIN AND OTHER EVENING MEDS GIVEN. ISOLATION MAINTAINED. NIGHT SNACKS GIVEN. WILL CONT TO MONITOR TILL EOS.
[2019-03-16 04:32] VITALS: BP 126/65
[2019-03-16 07:29] VITALS: BP 156/84
--- NOTE | 2019-03-16 08:15 | EKG ---
[address] [place] [address] ELECTROCARDIOGRAM REPORT Name: JUANITO YODER Room #: 438-P ADM IN M.R.#: [id number] Admission: 03/13/19 Attend Phys: Jose Alfredo Foss MD Discharge: Date of : 46 Report #: [id number] THIS REPORT FOR: //name// [facility] Test Date: 2019-03-13 Test Time: 20:18:44 Pat Name: JUANITO YODER Department: Room: 438 P Gender: F Patternmaker Sample: Hardeep BLACKWELL : 1945 Requested By: Jose Alfredo Foss Order Number: [id number] MD: Francisco Jeffery Measurements Intervals [place] Rate: 85 P: -19 [place]: 207 QRS: 16 QRSD: 122 T: 179 QT: 358 QTc: 426 Interpretive Statements Sinus rhythm Atrial premature complexes Nonspecific intraventricular conduction delay Nonspecific ST and T wave abnormality Baseline wander in lead(s) II,aVR Compared to ECG 03/13/2019 10:00:54 Atrial premature complex(es) now present Electronically Signed On 03-16-2019 8:14:37 BARREL TURNER by Francisco Jeffery [email or web address] <ELECTRONICALLY SIGNED> By: Francisco Jeffery MD, FAC 03/16/19 0814 17 17 Francisco Jeffery MD, [facility] /EPI
--- NOTE | 2019-03-16 10:26 | NUR ---
ASSUMED CARE OF THE PT AT 0700. PT IS ANURIC AND HAD DIALYSIS TX LATE IN THE EVENING AND HAS SLEPT ALL MORNING, REFUSED BREAKFAST AND INSULIN. PT IS ON CONTACT PRECAUTIONS FOR MRSA HX. NO C/O PAIN. FALL PRECAUTIONS IN PLACE, LUNG SOUNDS ARE CLEAR, BED IN THE LOWEST POSITION AND CALL LIGHT IS WITHIN REACH. WILL CONTINUE TO MONITOR THE PT.
[2019-03-16 16:52] VITALS: BP 145/72
[2019-03-16 20:00] VITALS: BP 147/67
[2019-03-16] MEDS ORDERED: NEBULIZER INH (22:10)
--- NOTE | 2019-03-17 00:31 | NUR ---
ASSUMED CARE OF PT @1900 PT ASSESSED AT START OF SHIFT A&OX4. BLOOD SUGAR 370 INSULIN ADMINISTERED. NIGHT MEDS ALSO GIVEN AND PT CHRISTINE IT WELL. DR MARC HERE THIS EVENING TO SEE PT. INSTRUCTED TO EDUCATED PT ON HOW TO CHECK BLOOD SUGAR, WILL BE AD AZUL AND WALK THE KWON WAY WITH CRUTCHES AND O2 TANK SEE ORDERS. ATIVAN D/C AND PO CLONAZEPAM GIVEN. WILL CONT WITH POC TILL EOS.
[2019-03-17 04:15] VITALS: BP 143/72
[2019-03-17 08:17] VITALS: BP 138/66
--- NOTE | 2019-03-17 14:22 | NUR ---
PHYSICIAN INDICATED THAT SHOULD PT DC OVER THE WEEKEND PT WOULD NEED NEBULIZER FOR HOME USE. PT ALREADY HAS HOME O2 THROUGH [facility] SO ORDER FOR NEBULIZER WAS SENT TO [facility]. PHYSICIAN INDICATED THAT PT WILL NEED GLUCOMETER AND TEST STRIPS FOR HOME USE. PHYSICIAN WILL NEED SCRIPS FOR THEM TO HAVE THEM RUN AND FILLED THROUGH HER INSURNACE. [facility] TO FOLLOW UP REGARDING PORTABLE CONCENTRATOR. NO OTHER CM INTERVENTION INDICATED.
[2019-03-17 17:06] VITALS: BP 142/42
[2019-03-17 19:35] VITALS: BP 174/55
--- NOTE | 2019-03-17 20:01 | NUR ---
ASSUMED CARE OF PT AT 0715. PT IS A&OX4 AND VITAL SIGNS ARE STABLE. HR REGULAR, LUNG SOUNDS CLEAR TO AUSCULTATION BILATERALLY TO ALL LOBES. BOWEL SOUNDS ACTIVE IN ALL QUADRANTS. TRACE EDEMA TO BLE. ORDERS FOR DIALYSIS TODAY, COMPLETED IN ROOM. ISOLATION FOR HX MRSA OF NARES. REST AND EXERCISE STUDY COMPLETED BY RT, RIGHT UPPER ARM FISTULA POSITIVE BRUIT AND THRILL. IV TO LEFT FOREARM PATENT, DRESSING C/D/I, AND SITE W/O REDNESS, DRAINAGE, OR EDEMA. ACCU CHECKS ACHS WITH SSI. REPORTED PAIN TO ABDOMEN MANAGED WTIH PO TYLENOL. PT UNABLE TO PROVIDE SPUTUM SAMPLE THIS SHIFT. FALL PRECAUTIONS IN PLACE. NURSING WILL CONTINUE TO MONITOR.
[2019-03-17 22:07] LABS: ADENOVIRUS Negative (Negative); INFLUENZA A Negative (Negative); INFLUENZA B Negative (Negative); METAPNEUMOVIRUS Positive (Negative); PARAINFLUENZA 1 Negative (Negative); PARAINFLUENZA 2 Negative (Negative); PARAINFLUENZA 3 Negative (Negative); RHINOVIRUS Negative (Negative); RSV A Negative (Negative); RSV B Negative (Negative)
[2019-03-18 01:30] VITALS: BP 156/87
[2019-03-18 03:10] VITALS: BP 138/64
--- NOTE | 2019-03-18 05:16 | NUR ---
PT A&O X4 ABLE TO MAKE NEEDS KNOWN. DENIES PAIN. ASSIST X1 WITH TRANSFERS WITH RW. 2L O2 PER NC. DIALYSIS PT MWF. PT BP ELEVATED AT HS CIVIL SERVICE CLERK NOTIFIED NO NEW ORDERS. PT REPORTED MISSING [facility] YESTERDAY MORNING D/T DIALYSIS. CONT OF B&B
[2019-03-18 07:30] VITALS: BP 140/54
[2019-03-18 17:21] VITALS: BP 136/56
[2019-03-18 20:25] VITALS: BP 132/59
--- NOTE | 2019-03-19 03:36 | NUR ---
Assessments completed. pt a&ox4. ambulates with standby assist. pt had a lot of snacks last stating that she doesn't know why she get so hungry. nurse stated that it's probably from the steriods she's taking. droplet prec maintained. pt c/o of a headache which was relief with tylenol. on 2l of oxygen overnight. no s/s of distress. will cont to monitor
[2019-03-19 08:05] VITALS: BP 116/50
--- NOTE | 2019-03-19 13:52 | NUR ---
PT CARE ASSUMED AT 0700. A&Ox4. PT. SITTING AT THE EDGE OF THE BED MOST OF THE DAY. PT HAD A SHOWER. ACHS COVERAGE NEEDED FOR ALL MEALS. PT WEANED DOWN TO 1L FOR DURING THE DAY. PT THROAT HURTS AND REQUESTED COUGH DROPS. PT IS SCHEDULED FOR DIALYSIS TOMORROW. PT MOVES AROUND THE ROOM FREELY. ON DROPLET ISOLATION. IV IS PATENT, WITH NO REDNESS OR EDEMA. IV FLUSHES WELL. BED IS IN LOW POSITION, LOCKED, WITH BED ALARM IN PLACE. CALL LIGHT IN REACH
[2019-03-19 17:44] VITALS: BP 153/68
[2019-03-19 19:28] VITALS: BP 163/87
--- NOTE | 2019-03-20 01:40 | NUR ---
ASSESSED AT START OF SHIFT. A&OX4 [facility] GIVEN FOR BP MEDS. INSULIN ALSO GIVEN FOR BLOOD SUGAR. IV INTACT AND SALINE LOCK. FISTULA IN RT UA PRESENT, PT GETS DIALYSIS MWF. DROPLET PRECAUTIONS MAINTAINED. TYLENOL GIVENX1 THIS SHIFT FOR HEADACHE OF A 4. FALL PREC IN PLACE AND CALL LIGHT IN REACH WILL CONT WITH POC TILL EOS.
[2019-03-20 04:21] VITALS: BP 116/47
[2019-03-20 06:35] LABS: HEMATOCRIT 32.4 % (37.0-47.0); HEMOGLOBIN 10.4 gm/dL (12.0-15.0); MCH 30.3 pg (26.0-34.0); MCHC 32.2 g/dL (28.0-37.0); MCV 94.3 fL (80.0-100.0); RBC 3.43 mil/uL (4.20-5.00); RDW 16.1 % (10.5-14.5); WBC 10.1 thou/uL (4.0-11.0)
[2019-03-20 06:55] LABS: ALBUMIN 2.8 g/dL (3.4-5.0); CALCIUM 8.7 mg/dL (8.5-10.1); CREATININE 6.7 mg/dL (0.6-1.0); PHOSPHORUS 5.4 mg/dL (2.5-4.9); POTASSIUM 5.4 mmol/L (3.5-5.1)
[2019-03-20 08:14] VITALS: BP 150/76
[2019-03-20 13:37] VITALS: BP 138/53
--- NOTE | 2019-03-20 13:37 | NUR ---
ASSUMED CARE OF THE PT AT 0700. PT LAC IV INFILTRATED, R HAND IV DRY AND INTACT. PER DOCTOR PT IS TO BE UP AD AZUL AND EXERCISE WITH O2 AND AFTERWARDS REST ON RA, D/C BED ALARAM AND USE SAMPLE INSULIN AND TEACH PT HOW TO USE THE INSULIN PEN. PT HAS DIALYSIS M,W ,F. NO C/O PAIN. FALL PRECAUTIONS ARE IN PLACE, BED IN LOWEST POSITION AND CALL LIGHT IS WITHIN REACH. WILL CONTINUE TO MONITOR THE PT.
--- NOTE | 2019-03-20 13:51 | NUR ---
Following for d/c planning needs. Spoke with Dr Foss. Plan is for pt to d/c home on Wednesday with home health. Asked digital sales planner to notify [facility] and also notify [facility] of tentative d/c plan with pt to resume dialysis with them on Wednesday.
--- NOTE | 2019-03-20 15:12 | NUR ---
FAXED REFERRAL TO [facility] SPOKE WITH JANNET IN INTAKE SHE RECEIVED REFERRAL AND CAN ACCEPT PT AT DC. NOTIFIED [facility] OF PT DC AND FAXED CLINICAL UPDATE AND RECEIVED CONFIRMATION. PT TO DC TOMORROW 03/21/19.
[2019-03-20 15:53] VITALS: BP 130/100
[2019-03-20 19:56] VITALS: BP 113/61
--- NOTE | 2019-03-20 20:11 | NUR ---
1999 PT RETURNED FROM DIALYSIS WITH DIALYSIS NURSE, VS STABLE, NO COMPLAINTS OF SOA OR DISCOMFORT. BASELINE ASSESSMENT COMPLETED SEE ASSESSMENT TAB. PT ENCOURAGED TO WEAR NO SLIP SOCKS WHEN AMBULATING AND CALL FOR NURSING FOR STAND BY ASSIST, REFUSES SCD'S STATING "I'M GOING HOME TOMORROW AND I'M WALKING JUST FINE, I DON'T WANT THEM.
[2019-03-20 21:00] VITALS: BP 154/64
[2019-03-21 04:34] VITALS: BP 175/75
[2019-03-21 05:10] VITALS: BP 162/58
--- NOTE | 2019-03-21 06:32 | NUR ---
03/20/19 2100 EDUCATED PT HOW TO USE INSULIN PEN, DEMONSTRATED AND READ DIRECTIONS WITH PT, SHE WILL SELF ADMINISTER HER NEXT DOSE.
[2019-03-21 07:40] VITALS: BP 189/88
[2019-03-21 11:12] VITALS: BP 138/53
[2019-03-21 13:25] VITALS: BP 138/53
[2019-03-21] MEDS ORDERED: HUMALOG100 UNIT/1 SUBQ (14:02)
[2019-03-21] MEDS ORDERED: IMDUR 30 MG TAB30 M1 PO (14:02)
[2019-03-21] MEDS ORDERED: ZOLOFT100 MG PO (14:02)
[2019-03-21] MEDS ORDERED: CLONAZEPAM 0.50.5 M1 PO ×2 (14:02)
[2019-03-21] MEDS ORDERED: ZYPREXA 5 MG TAB5 M2 PO ×2 (14:02)
[2019-03-21] MEDS ORDERED: IPRAT-ALBUT 0.5-3 ML INH (14:02)
--- NOTE | 2019-03-21 14:16 | NUR ---
PATIENT STATED SHE WAS READY TO LEAVE TODAY. HER RESPIRATORY STATUS HAS IMPROVED AND IS NOT COMPLAINING OF SOB, ONLY WHEN UP AMBULATING. HER BP WAS HIGH IN THE MORNING, RN WAS NOTIFIED. SHE IS ANXIOUS TO GO HOME, WILL BE DISCHARGED SOON.
--- NOTE | 2019-03-21 14:33 | NUR ---
I have reviewed and concur with student documentation.
--- NOTE | 2019-03-21 14:53 | NUR ---
DISCHARGE PAPERS GONE OVER SIGNED AND COPY IN CHART. IV ACSESS DCD. ISULIN AND S/S GIVEN TO PATIENT. PT DEMONSTRATED THAT SHE KNEW HOW TO USE. ALL BELONGINGS PACKED AND SENT WITH PATIENT. RX'S CALLED TO PATIENTS PHARMACY. FAMILY HERE TO ADJUNCT PROFESSOR OF VOICE PATIENT.
[2019-03-21 15:05] VITALS: BP 138/53
--- NOTE | 2019-03-21 15:18 | NUR ---
PT DISCHARGING TODAY TO HOME WITH [facility] FAXED DC ORDERS/SUMMARY SPOKE WITH SWETHA IN INTAKE SHE RECEIVED DC ORDERS AND WILL NOTIFY PT TIME OF VISITS. FAXED DC SUMMARY AND DIALYSIS FLOWSHEETS TO [facility] RECEIVED CONFIRMATION AND SPOKE WITH INTAKE PT WILL BE AT HER REGULAR CHAIR TIME FOR DIALYSIS TOMORROW 03/22.
== END 2019-03-21 15:10 | disposition home health service (06) | DRG 865 ==
LOC: ER 09:57 → 4S 16:38 → ENTRNSPT 03-21 15:00 → EDTRNSPTSTS 03-21 15:04 → 4S 03-21 15:10
PROVIDERS: Emergency Medicine; Internal Medicine Nephrology; ADMIT Internal Medicine
PROC: 5A1D70Z Performance of Urinary Filtration, Intermittent, Less than 6 Hours Per Day (ICD-10-PCS; principal; 2019-03-17)
DX: B33.8 Other specified viral diseases (principal); J96.21 Acute and chronic respiratory failure with hypoxia; N18.6 End stage renal disease; J44.1 Chronic obstructive pulmonary disease with (acute) exacerbation; I12.0 Hypertensive chronic kidney disease with stage 5 chronic kidney disease or end stage renal disease; K86.1 Other chronic pancreatitis; B44.9 Aspergillosis, unspecified; R07.9 Chest pain, unspecified; E87.5 Hyperkalemia; M54.9 Dorsalgia, unspecified; E21.3 Hyperparathyroidism, unspecified; F32.9 Major depressive disorder, single episode, unspecified; F41.9 Anxiety disorder, unspecified; I25.10 Atherosclerotic heart disease of native coronary artery without angina pectoris; E11.22 Type 2 diabetes mellitus with diabetic chronic kidney disease; E11.42 Type 2 diabetes mellitus with diabetic polyneuropathy; E78.5 Hyperlipidemia, unspecified; G25.81 Restless legs syndrome; F17.210 Nicotine dependence, cigarettes, uncomplicated; E11.51 Type 2 diabetes mellitus with diabetic peripheral angiopathy without gangrene; E03.9 Hypothyroidism, unspecified; I71.2 Thoracic aortic aneurysm, without rupture; R91.1 Solitary pulmonary nodule; B97.81 Human metapneumovirus as the cause of diseases classified elsewhere; I34.0 Nonrheumatic mitral (valve) insufficiency; Z91.19 Patient's noncompliance with other medical treatment and regimen; Z80.9 Family history of malignant neoplasm, unspecified; Z82.49 Family history of ischemic heart disease and other diseases of the circulatory system; Z99.2 Dependence on renal dialysis; Z90.710 Acquired absence of both cervix and uterus; Z95.1 Presence of aortocoronary bypass graft; Z90.89 Acquired absence of other organs; Z95.5 Presence of coronary angioplasty implant and graft; Z86.718 Personal history of other venous thrombosis and embolism; Z79.01 Long term (current) use of anticoagulants; Z87.440 Personal history of urinary (tract) infections; Z79.899 Other long term (current) drug therapy; Z88.5 Allergy status to narcotic agent; Z88.8 Allergy status to other drugs, medicaments and biological substances
CPT/HCPCS: 10195; 32100

== ENCOUNTER 2019-12-26 19:25 | Inpatient (IN) | payer OTHER ==
[~2019-12-26] VITALS: Ht 165.1 cm; Wt 67.1 kg
[~2019-12-26 19:25] MED LIST changes: +CLONAZEPAM 0.50.5 M1 PO; +HUMALOG100 UNIT/1 SUBQ; +IPRAT-ALBUT 0.5-3 ML INH; +NEBULIZER INH; +ZOLOFT100 MG PO; +ZYPREXA 5 MG TAB5 M2 PO
[2019-12-26 19:28] VITALS: BP 109/42
[2019-12-26 20:32] LABS: ABSOLUTE NEUTROPHILS 4.8 thou/uL (1.4-8.2); BASOPHILS 0.9 % (0.0-2.0); EOSINOPHILS 3.8 % (0.0-3.0); HEMATOCRIT 34.6 % (37.0-47.0); HEMOGLOBIN 11.2 gm/dL (12.0-15.0); LYMPHOCYTES 12.9 % (24.0-44.0); MCH 31.4 pg (26.0-34.0); MCHC 32.4 g/dL (28.0-37.0); MCV 97.1 fL (80.0-100.0); PLATELET COUNT 151 thou/uL (150-400); POLYS 72.4 % (36.0-66.0); RBC 3.56 mil/uL (4.20-5.00); RDW 17.8 % (10.5-14.5); WBC 6.7 thou/uL (4.0-11.0)
[2019-12-26 20:48] LABS: CALCIUM 8.9 mg/dL (8.5-10.1); CREATININE 5.2 mg/dL (0.6-1.0); POTASSIUM 4.6 mmol/L (3.5-5.1)
[2019-12-26 20:54] LABS: ALBUMIN 3.2 g/dL (3.4-5.0); TOTAL BILIRUBIN 0.3 mg/dL (0.2-1.0); TOTAL PROTEIN 7.5 g/dL (6.4-8.2)
[2019-12-26 21:50] VITALS: BP 118/54
[2019-12-26 21:58] VITALS: BP 122/74
[2019-12-26] MEDS ORDERED: KLONOPIN0.5 MG PO (22:19)
[2019-12-26] MEDS ORDERED: CLONAZEPAM 0.50.5 M1 PO (22:20)
[2019-12-26] MEDS ORDERED: OLANZAPINE5 M1 PO (22:23)
[2019-12-27] MEDS ORDERED: SERTRALINE HCL100 MG PO (00:26)
--- NOTE | 2019-12-27 01:37 | NUR ---
ASSUMED CARE OF PT AT 2150HRS FROM ED. PT IS AOX4 AND LETS NEEDS BE KNOWN. PT WAS ORIENTED TO THE UNIT AND HER ROOM. PT WAS ABLE TO ANSWER ALL ADMISSION RELATED QUESTIONS AND SIGN OWN CONSENT. PT HAS A DAILYSIS FISTULA ON HER RIGHT UPPER ARM AND GOES FOR DAILYSIS MWF. PT REPORTS BEING ANURIC. PHOTO TAKEN OF WOUND. PT IS DNR. ORDERS RECEIVED AND STARTED. VSS AND NO S/S OF ACUTE DISTRESS. WILL CONTINUE TO MONITOR.
[2019-12-27 03:50] VITALS: BP 131/50
[2019-12-27 06:03] LABS: HEMATOCRIT 32.3 % (37.0-47.0); HEMOGLOBIN 10.4 gm/dL (12.0-15.0); MCH 31.4 pg (26.0-34.0); MCHC 32.2 g/dL (28.0-37.0); MCV 97.5 fL (80.0-100.0); RBC 3.31 mil/uL (4.20-5.00); RDW 17.9 % (10.5-14.5); WBC 5.9 thou/uL (4.0-11.0)
[2019-12-27 09:14] LABS: ANION GAP 18 mmol/L (7-16); BUN 62 mg/dL (7-18); CHLORIDE 98 mmol/L (98-107); CHOLESTEROL 164 mg/dL (<200); CO2 23 mmol/L (21-32); CREATININE 5.8 mg/dL (0.6-1.0); GLUCOSE 212 mg/dL (74-106); POTASSIUM 4.2 mmol/L (3.5-5.1); SODIUM 139 mmol/L (136-145)
[2019-12-27 09:39] LABS: HDL CHOLESTEROL 14 mg/dL (>40); LDL CHOLESTEROL 99 mg/dL (<100); TC:HDL 11.7 Ratio (Not establshd); TRIGLYCERIDE 257 mg/dL (<150); VLDL 51 mg/dL (<40)
--- NOTE | 2019-12-27 12:26 | NUR ---
PT ADMITTED RELATED TO MRSA MOUTH. CM REVIEWED CHART AND SPOKE WITH CARE TEAM. CM CALLED AND SPOKE WITH PT AT BEDSIDE THIS DAY. PT APPEARED TO BE A&O X4. CM ROLE INTRODUCED. PT INDICATED SHE LIVES IN A HOUSE WITH HER NIECE AND HER . PT INDICATED THERE ARE 6 STEPS TO ENTER AND NONE INSIDE. 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 PT INDICATED SHE HAD HOME HEALTH IN THE PAST. PT INDICATED SHE GOES TO [facility] M,W,F 10:30 CHAIR TIME. SHE INDICATED THAT SHE DRIVES HERSELF. PT INDICATED SHE PLANS TO RETURN HOME [place] MEDICALLY STABLE. PT IS CURRENTLY ON IV ABX AND ENT HAS BEEN CONSULTED. CM TO FOLLOW INDICATED WITH DC PLANNING.
--- NOTE | 2019-12-27 17:51 | NUR ---
ASSUMED CARE OF PATIENT AT APPROX 0743. ASSESSMENT CHARTED. MEDICATIONS GIVEN PER MAR. VSS. PATIENT IS A&OX4 AND MAKES NEEDS KNOWN. PATIENT IS UP WITH ASSIST X1 AFTER DIALYSIS AND SBA BASELINE. BP MEDS HELD THIS AM FOR DIALYSIS. 3L REMOVED POST HEMODIALYSIS AND NO COMPLAINTS AFTERWARD. PATIENT WAS GIVEN MOUTH MOISTURIZER TO HELP W LIP DISCOMFORT. PATIENT IS ANURIC AND STATES HAVING BM EVERY OTHER DAY TO 2 DAYS. NO DRAINAGE ON LIP BUT WARM TO TOUCH. + FOR MRSA; ABX ORDERED. PLAN IS FOR TREATMENT TEAM TO ADDRESS LIP MASS. ENT CONSULTED THIS EVENING. INTAKE IS ADEQUATE. PATIENT VOICES NO OTHER CONCERNS AT THIS TIME. WILL CONTINUE TO MONITOR
[2019-12-27 19:05] VITALS: BP 127/47
--- NOTE | 2019-12-27 19:20 | NUR ---
I AGREE WITH NURSING ASSESSMENT AND NURSING NOTE DONE BY RACHEL/RESCUE BOAT OPERATOR.
--- NOTE | 2019-12-28 03:02 | NUR ---
ASSUMED CARE OF PT AROUND 1900HRS. PT AOX4 AND LETS NEEDS BE KNOWN. PT IS INDEPENDENT IN HER ROOM. ABX TREATMENT CONTINUED. FISTULA DRESSING IS C/D/I AFTER RECEIVING DAILYSIS ON PREVIOUS SHIFT. WOUND CULTURE SENT. PT REPORTS TOLERABLE PAIN AT THE SITE OF INFECTION. PT WAS ABLE TO GET COMFORTABLE AND SLEEP PART OF THE SHIFT. VSS AND NO S/S OF ACUTE DISTRESS WILL CONTINUE TO MONITOR.
[2019-12-28 07:08] LABS: HEP B SURFACE Ab(ANTI-HBS Non Reactive (()); HEPATITIS B SURFACE AG Negative (Negative)
[2019-12-28 08:28] VITALS: BP 140/60
--- NOTE | 2019-12-28 13:57 | NUR ---
CARE TEAM INDICATED THAT PT IS PROGRESSING TOWARD GOAL OF DISCHARGE. ENT STILL CONSULTED TO SEE PT. SHE CONTINUES ON IV VANC. PT TO HAVE DIALYSIS TOMORROW. PHYSICIAN INIDCATED POSSIBLE DC HOME TOMORROW. CM TO FOLLOW INDICATED WITH DC PLANNING.
[2019-12-28 16:43] VITALS: BP 135/64
[2019-12-28 19:29] VITALS: BP 112/47
--- NOTE | 2019-12-29 08:12 | HC ---
[facility] [place] [address] CONSULTATION Name: JUANITO YODER Room #: 463-P ADM IN M.R.#: [id number] Admission: 12/26/19 Attend Phys: Tabatha Wilson Aylinmele Discharge: Date of : 47 Report #: [id number] THIS REPORT FOR: cc: Jose Alfredo Foss MD, Stanley P. MD Al-Absi,Chin Kitchen MD ~ REASON FOR CONSULTATION: End-stage renal disease. REASON FOR THE PRESENTATION: Perioral rash and cellulitis. HISTORY OF PRESENT ILLNESS: This is a very well-known patient to me. She is an end-stage renal disease patient, maintained on hemodialysis every Wednesday, Wednesday and Wednesday. She is utilizing a fistula for her dialysis. She has had recurrent issues with MRSA in the past. She is known to have diabetes mellitus and hypertension. She is also known to have coronary artery disease. She has been battling with lower lip swelling and cellulitic changes for which she was treated by appropriate antibiotic by her primary care physician as an outpatient with no resolution of her symptoms. Decision was made to admit the patient for an intravenous antibiotics and I was consulted to manage her end-stage renal disease related issues. PAST MEDICAL HISTORY: 1. End-stage renal disease. 2. Diabetes mellitus. 3. Hypertension. 4. Methicillin-resistant Staphylococcus aureus infections in the past. 5. AV fistula. 6. Coronary artery disease, post coronary artery bypass graft. 7. Hyperparathyroidism. 8. Appendectomy. 9. History of nephrolithiasis. 10. Anemia of chronic disease. REPORTED ALLERGIES: CODEINE AND SPIRONOLACTONE. MEDICATIONS: 1. Sevelamer. 2. Isosorbide mononitrate. 3. Levothyroxine. 4. Sertraline. 5. Carvedilol. 6. Amlodipine. REVIEW OF SYSTEMS: GENERAL: No fever or chills. [facility] [address] [place] [address] CONSULTATION Name: JUANITO YODER Room #: 463-P [facility] IN [facility]#: [id number] Admission: 12/26/19 Attend Phys: Tabatha Ruff Discharge: Date of : 47 Report #: [id number] CARDIOVASCULAR: No chest pain or palpitation. NECK: Supple. PULMONARY: No cough or hemoptysis. GASTROINTESTINAL: No nausea or vomiting. SKIN: As per the history of present illness. NEUROLOGICAL: No headache, no dizziness. FAMILY HISTORY: Significant for diabetes mellitus. SOCIAL HISTORY: No drug or alcohol abuse. 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 PHYSICAL EXAMINATION: VITAL SIGNS: Temperature 36.7, pulse rate 58, respiratory rate 16, blood pressure is 131/50. HEAD AND NECK: No jugular venous distention. CHEST: No crackles. CARDIOVASCULAR: No rub detected. ABDOMEN: Soft, nontender. EXTREMITIES: Lower extremities, no edema. SKIN: There is a periorbital swelling and cellulitic changes with some skin lesions, mainly localized to the lower lips. LABORATORY VALUES: Hemoglobin is 10.4. Sodium is 140, potassium is 4.6, BUN is 50, creatinine is 5.2. ASSESSMENT AND PLAN: 1. End-stage renal disease. 2. Periorbital cellulitis in the patient with known methicillin-resistant Staphylococcus aureus infection in the past. 3. Diabetes mellitus. 4. Hypertension. 5. Hypothyroidism. 6. Coronary artery disease. 7. We will arrange for the patient to have her usual hemodialysis every Wednesday, Wednesday and Wednesday. 8. Resume patient's blood pressure medications. 9. Resume patient's blood sugar medications. 10. The patient was initiated on vancomycin for the treatment of her lower leg cellulitis. We will continue to follow. <ELECTRONICALLY SIGNED> By: Chin Sneed MD 12/29/19811 8 6 Chin Sneed MD /nt
[2019-12-29 12:00] VITALS: BP 127/56
--- NOTE | 2019-12-29 13:59 | NUR ---
ASSUMED CARE OF PT AT 0700. PT IS A&OX4 AND VITAL SIGNS ARE STABLE. PT REPORTS PAIN TO LIPS, MANAGED WITH TYLENOL. ACCU CHECKS ACHS, MANAGED WITH ORDERED INSULIN. ORDERED DIALYSIS THIS AFTERNOON. PT ON 2L O2 VIA NC WHICH SHE USES AT HOME WELL. PT ANURIC. CONSULTED DR TRUJILLO FOR LIP MASS. NO ORDER FOR DISCHARGE AT THIS TIME. FALL PRECAUTIONS IN PLACE AND NURSING WILL CONTINUE TO MONITOR.
--- NOTE | 2019-12-29 16:22 | NUR ---
CARE TEAM INDICATED THAT PT WILL LIKELY BE MEDICALLY STABLE TO DC HOME WITH FAMILY TOMORROW. PT HAD DIALYSIS THIS DAY. IT IS ANTICPATED THAT PT WILL BE ABLE TO DISCHARGE HOME TO SELF CARE. DIALYSIS NURSE SENT FLOW SHEETS TO [facility]. PT HAS ALL NEEDED DME. NO OTHER CM INTERVENTION ANTICPATED.
[2019-12-29 20:00] VITALS: BP 148/74
--- NOTE | 2019-12-30 04:04 | NUR ---
ASSUMED CARE OF PT AT 1900. PT IS A/O X4 AND UP AD AZUL WITH CRUTCHES IN THE ROOM. C/O PAIN TO LOWER LIP. PRN PAIN MEDICATION PROVIDED DIRECTED. DIALYSIS COMPLETED AT APPROXIMATELY 1999 WITH DIALYSIS NURSE STATING SHE PULLED 3 LITERS OF FLUID OFF. PT STATED SHE WAS EXTREMELY TIRED AFTER DIALYSIS. NURSE GROUPED CARES TOGETHER MUCH POSSIBLE TO ALLOW FOR OPTIMUM SLEEP AND REST. AT THIS TIME, PT IS LYING IN HER BED AND APPEARS TO BE SLEEPING. CONTINUES ON 2 LITERS OF O2 NC. VSS. WILL CONTINUE TO MONITOR.
[2019-12-30 08:35] VITALS: BP 122/47
--- NOTE | 2019-12-30 11:28 | NUR ---
Received awake on bed. Due medications given as prescribed, able to swallow meds w/o difficulty. On O2 at 2lpm via nasal cannula, pt's baseline at home as reported. On MS, not on telemetry; no complains and signs of chest pain, crushing sensation and heaviness. On heart healthy diet- tolerating well; no nausea, no vomiting and no abdominal pain noted. On blood sugar monitoring, taken and recorded accordingly, with sliding scale insulin ordered. Continent of bowel and bladder, able to go to the toilet independently using crutches. Assisted in ADLs. Vital signs stable. With SL at L wrist- intact and flushing well. With R upper arm dialysis fistula- no dressing in place; no bleeding and signs of infection noted; dialysis schedule , tolerated dialysis yesterday. To continue monitoring patient.
[2019-12-30 16:29] VITALS: BP 122/39; BP 129/52
[2019-12-30 19:51] VITALS: BP 127/63
--- NOTE | 2019-12-31 03:19 | NUR ---
ASSUMED CARE OF PT AT 1900. PT IS A/O X 4 AND IS UP AD AZUL IN ROOM WITH CRUTCHS. PT DENIES ANY C/O PAIN OR DISCOMFORT THIS SHIFT. LOWER LIP HAS SOME EDEMA AND REDNESS THAT APPEARS TO BE HEALING. AT THIS TIME PT IS LYING IN HER BED AND APPEARS TO BE WATCHING TV. CALL LIGHT IS WITHIN REACH. WILL CONTINUE TO MONITOR.
[2019-12-31 08:59] VITALS: BP 151/73
[2019-12-31] MEDS ORDERED: LIDOCAINE 2%2 %/5 GM TOP (09:39)
[2019-12-31 09:41] VITALS: BP 151/73
[2019-12-31 11:24] VITALS: BP 151/73
--- NOTE | 2019-12-31 13:37 | NUR ---
Received awake on bed. Due medications given as prescribed, able to swallow meds w/o difficulty. On room air. Vital signs stable. A+Ox4. On MS, not on telemetry; no complains and signs of chest pain, crushing sensation and heaviness. On O2 at 2lpm via nasal cannula- pt's baseline at home. On carb controlled diet- tolerating well; no nausea, no vomiting and no abdominal pain noted. On blood sugar monitoring, taken and recorded accordingly; with sliding scale insulin ordered, given as prescribed. With SL at L FA- intact and flushing well. With dialysis fistula at R upper arm, no dressing in place; no bleeding and no signs of infection noted; dialysis schedule --. Able to go to the toilet using crutches, independent with ADLs. Pt seen and examined by Dr Waters this AM, discharge orders made. Discharge instructions, follow up schedule given and instructed. Discharge forms signed. Home health contact number given to patient. Face sheet, H&P, Discharge summary and discharge instructions faxed to [facility] as instructed by CM, pt informed and aware. No complains of pain made during assessment. IV discontinued, no bleeding noted afterwards. Pt fetched by her relative, brought out of the unit with her personal belongings via wheelchair. Patient Discharged.
== END 2019-12-31 13:44 | disposition home health service (06) | DRG 602 ==
LOC: ER 19:25 → EROBS 20:51 → 4W 20:51 → EROBS 20:51 → 4W 21:58
PROVIDERS: Hospitalist; Nurse Practitioner Family; Student in an Organized Health Care Education/Training Program; ADMIT Hospitalist; ATTEND Hospitalist
PROC: 5A1D70Z Performance of Urinary Filtration, Intermittent, Less than 6 Hours Per Day (ICD-10-PCS; principal; 2019-12-29)
DX: L03.211 Cellulitis of face (principal); N18.6 End stage renal disease; I12.0 Hypertensive chronic kidney disease with stage 5 chronic kidney disease or end stage renal disease; M31.9 Necrotizing vasculopathy, unspecified; Z99.2 Dependence on renal dialysis; B95.62 Methicillin resistant Staphylococcus aureus infection as the cause of diseases classified elsewhere; L03.213 Periorbital cellulitis; B95.7 Other staphylococcus as the cause of diseases classified elsewhere; I71.9 Aortic aneurysm of unspecified site, without rupture; F32.9 Major depressive disorder, single episode, unspecified; F41.9 Anxiety disorder, unspecified; G89.29 Other chronic pain; Z66 Do not resuscitate; D49.89 Neoplasm of unspecified behavior of other specified sites; F10.20 Alcohol dependence, uncomplicated; Y90.9 Presence of alcohol in blood, level not specified; E10.22 Type 1 diabetes mellitus with diabetic chronic kidney disease; E03.9 Hypothyroidism, unspecified; I25.10 Atherosclerotic heart disease of native coronary artery without angina pectoris; E10.42 Type 1 diabetes mellitus with diabetic polyneuropathy; K13.0 Diseases of lips; F17.210 Nicotine dependence, cigarettes, uncomplicated; G25.81 Restless legs syndrome; Z79.4 Long term (current) use of insulin; Z88.8 Allergy status to other drugs, medicaments and biological substances; Z79.899 Other long term (current) drug therapy; Z95.1 Presence of aortocoronary bypass graft; Z79.01 Long term (current) use of anticoagulants; Z88.5 Allergy status to narcotic agent; Z90.49 Acquired absence of other specified parts of digestive tract
CPT/HCPCS: 10040; 32100

== ENCOUNTER 2020-06-25 14:20 | Inpatient (IN) | payer OTHER ==
[~2020-06-25] VITALS: Ht 165.1 cm; Wt 52.2 kg
[~2020-06-25 14:20] MED LIST changes: +KLONOPIN0.5 MG PO; +LIDOCAINE 2%2 %/5 GM TOP; +OLANZAPINE5 M1 PO
[2020-06-25 14:33] VITALS: BP 151/32
[2020-06-25 15:19] LABS: ABSOLUTE NEUTROPHILS 6.3 thou/uL (1.4-8.2); BASOPHILS 0.3 % (0.0-2.0); EOSINOPHILS 0.2 % (0.0-3.0); HEMATOCRIT 33.2 % (37.0-47.0); HEMOGLOBIN 10.6 gm/dL (12.0-15.0); LYMPHOCYTES 6.8 % (24.0-44.0); MCH 31.4 pg (26.0-34.0); MCHC 31.8 g/dL (28.0-37.0); MCV 98.6 fL (80.0-100.0); MONOCYTES 8.4 % (1.0-8.0); PLATELET COUNT 142 thou/uL (150-400); POLYS 84.3 % (36.0-66.0); RBC 3.37 mil/uL (4.20-5.00); RDW 20.5 % (10.5-14.5); WBC 7.5 thou/uL (4.0-11.0)
[2020-06-25 15:36] LABS: CALCIUM 9.2 mg/dL (8.5-10.1); CREATININE 4.3 mg/dL (0.6-1.0); POTASSIUM 4.8 mmol/L (3.5-5.1)
[2020-06-25 15:47] LABS: ALBUMIN 2.8 g/dL (3.4-5.0); DIRECT BILIRUBIN 0.1 mg/dL (<0.1-0.2); TOTAL BILIRUBIN 0.5 mg/dL (0.2-1.0); TOTAL PROTEIN 7.2 g/dL (6.4-8.2); TROPONIN-I 0.08 ng/mL (<0.06)
[2020-06-25 18:43] VITALS: BP 142/43
[2020-06-25 19:38] VITALS: BP 136/41
[2020-06-25 19:58] LABS: FOLIC ACID 23.3 ng/mL (8.6-58.9)
[2020-06-25 20:55] VITALS: BP 145/54
--- NOTE | 2020-06-26 02:52 | NUR ---
PT ADMITTED IN TO THE UNIT AT 1999 WITH C/O GENERALISED BODY PAIN.PT IS A/O X4.PT HAS HAD X2 FALL WITH HE PAST 2WEEKS.PT FROM [facility] AND DOESNOT WANT TO GO BACK THERE FOR BEING NOT BEING TREATED WELL.PT C/O BODY WEAKNESS.PT USES CRUTCHES AT HOME AND W/C.PT HAS A RT LIMB ALERT AND HAS A SAMRA AV FISTULA.PT IS ON O2 2L VIA NC AND USES O2 AT HOME FOR COPD.PT HAS SOME REDNESS ON BOTTOM NO OPEN WOUNDS AND BRUISING ON BUE.PAIN MANAGED WITH NORCO WITH RELIEF.PT IS ACCUCHECK AFTER MEALS WITH [facility].WILL CONTINUE TO MONITOR
[2020-06-26 05:21] VITALS: BP 141/44
[2020-06-26 05:28] LABS: ABSOLUTE NEUTROPHILS 4.1 thou/uL (1.4-8.2); BASOPHILS 0.5 % (0.0-2.0); EOSINOPHILS 0.9 % (0.0-3.0); HEMATOCRIT 33.1 % (37.0-47.0); HEMOGLOBIN 10.4 gm/dL (12.0-15.0); LYMPHOCYTES 8.5 % (24.0-44.0); MCH 31.2 pg (26.0-34.0); MCHC 31.3 g/dL (28.0-37.0); MCV 99.8 fL (80.0-100.0); PLATELET COUNT 126 thou/uL (150-400); POLYS 81.1 % (36.0-66.0); RBC 3.32 mil/uL (4.20-5.00); RDW 20.5 % (10.5-14.5); WBC 5.1 thou/uL (4.0-11.0)
[2020-06-26 05:57] LABS: ALBUMIN 2.5 g/dL (3.4-5.0); CALCIUM 8.4 mg/dL (8.5-10.1); MAGNESIUM 2.5 mg/dL (1.8-2.4); PHOSPHORUS 8.6 mg/dL (2.5-4.9); POTASSIUM 4.8 mmol/L (3.5-5.1)
[2020-06-26 07:45] VITALS: BP 119/53
--- NOTE | 2020-06-26 09:06 | EKG ---
[address] [place] [address] ELECTROCARDIOGRAM REPORT Name: JUANITO YODER Room #: 464-P [facility] IN ..#: [id number] Admission: 06/25/20 Attend Phys: Luis Oneill MD Discharge: Date of : 47 Report #: [id number] [facility] ED Test Date: 2020-06-25 Test Time: 14:47:51 Pat Name: JUANITO YODER Department: Room: 464 Gender: F Director Telehealth: SCOOTER : 1945 Requested By: Tremayne Youngblood Order Number: [id number] MD: Francisco Jeffery Measurements Intervals [place] Rate: 65 P: -81 CO: 163 QRS: 6 QRSD: 130 T: 144 QT: 468 QTc: 487 Interpretive Statements Sinus or ectopic atrial rhythm Left bundle branch block Compared to ECG 03/13/2019 20:18:44 Ectopic atrial rhythm now present Atrial premature complex(es) no longer present Electronically Signed On 06-26-2020 9:05:59 CDT by Francisco Jeffery [email or web address] <ELECTRONICALLY SIGNED> By: Francisco Jeffery MD, [facility] 06/26/20 0905 [id number] [id number] Francisco Jeffery MD, [facility] /EPI
--- NOTE | 2020-06-26 11:34 | NUR ---
Case opened to follow for dc planning. Pt is known to cm from previous admissions. She admits from [place] of [facility] where she was admitted on 06/24/20 for skilled rehab from [facility]. She notes that she is weaker than normal and went to rehab as she is not able to get in and out of her home (6 steps)for dialysis MWF. She dialyzes at [facility]. She lives with her niece Susan who works from home. She notes increased weakness and would like to continue rehabing but does not want to go back to the [facility]. She was advised that all SNF's are non smoking and she was caught smoking at the [facility]. She acknowledged she understands and will sign the smoking waiver at another SNf. She might be interested in the [facility] so the [place] liason is coming out to see her. She was admitted of breast mass bx however it is unclear if this will be completed today as it is an outpt procedure. She is getting dialysis this morning. She is also open to snf at [facility] or as well. CM to contact them for bed availability and send referrals. Possible dc later today to snf pending plan of care.
--- NOTE | 2020-06-26 15:38 | NUR ---
Assumed pt care at 7am.Pt in and out of bed with assist x1.Assessment completed.vss.Pt c/o left breast pain rated 6/10.[place] given with am meds. Partial relief noted.Dr Oneill here,discussed with Dr Brandt about pt care option. No left breast biopsy needed this admission. [place] arranged for transport. Report given to Aisha lu at [facility].Per dialysis report, 2 liter of fluid was taken off today.Pt will be dc today to snf at 1600.Will continue to monitor.
--- NOTE | 2020-06-27 07:15 | NUR ---
PATIENT D/C PRIOR TO OT EVAL
--- NOTE | 2020-07-03 06:01 | HC ---
[facility] [place] [address] CONSULTATION Name: JUANITO YODER Room #: 464-P [facility] IN M.R.#: [id number] Admission: 06/25/20 Attend Phys: Luis Oneill MD Discharge: 06/26/20 Date of : 47 Report #: [id number] THIS REPORT FOR: cc: Rafita Herring MD, Shyam MD Al-Absi,Chin Kitchen MD ~ DOC #: [id number] Chin Sneed MD REASON FOR CONSULTATION: End-stage renal disease. HISTORY OF PRESENT ILLNESS: This is a very well known patient to me. She was admitted to the [facility] two times in the last week. She has so many ongoing issues. She has had repeated falls. She was declined by many nursing facilities due to her smoking habits. She is end-stage renal disease, maintained on hemodialysis. She has issues with extreme noncompliance. She was also discovered recently to have a breast mass that is being investigated by her surgeon. The patient presented with generalized pain. She tells me that she was at Dr. Akers office and he decided to send her to the Emergency Room, which contradicts the Emergency Room note. The patient was admitted because of her weakness to further evaluate her condition. I was consulted to manage her end-stage renal disease issues. She is due for dialysis today. PAST MEDICAL HISTORY: Extensive and includes the followin. COPD. 2. Chronic smoking. 3. End-stage renal disease, maintained on hemodialysis. 4. Diabetes mellitus. 5. Hypertension. 6. Post-CABG. 7. Appendectomy. 8. History of nephrolithiasis. 9. History of staph bacteremia. 10. AV fistula. ALLERGIES: CODEINE, SPIRONOLACTONE, IBUPROFEN. HOME MEDICATIONS: 1. Renvela. 2. Levothyroxine. 3. Lispro insulin. 4. Amlodipine. 5. Carvedilol. SOCIAL HISTORY: No drug or alcohol abuse. She continues to smoke. [facility] [address] [place] [address] CONSULTATION Name: JUANITO YODER Reymundo Room #: 464-P [facility] IN M.R.#: [id number] Admission: 06/25/20 Attend Phys: Luis Oneill MD Discharge: 06/26/20 Date of : 47 Report #: [id number] REVIEW OF SYSTEMS: GENERAL: Significant for weakness. CARDIOVASCULAR: No chest pain or palpitation. PULMONARY: No cough or hemoptysis. GASTROINTESTINAL: No nausea or vomiting. However, she was recently hospitalized for an acute bout of diverticulitis. NEUROLOGICAL: No headache. No dizziness. FAMILY HISTORY: Significant for hypertension. PHYSICAL EXAMINATION: VITAL SIGNS: Blood pressure is 141/54, temperature 36.2, pulse rate 64, respiratory rate is 18. HEAD AND NECK: No jugular venous distention. CHEST: Decreased air entry bilaterally. CARDIOVASCULAR: No rub. ABDOMEN: Soft, nontender. EXTREMITIES: Lower extremities, no edema. There is a right AV fistula. LABORATORY DATA: White blood cell count is 5.1, hemoglobin is 10.4, platelet is 126. Sodium is 140, potassium is 4.8, BUN is 46, creatinine is 5, phosphorus is 8.6. ASSESSMENT AND PLAN: 1. End-stage renal disease. 2. Debility. 3. Diabetes mellitus. 4. Hypertension. 5. Recent diverticulitis. 6. Recurrent falls. From the renal perspective, we will aim for a dialysis treatment today. The patient has major issues with noncompliance. Her case was declined by many nursing facilities due to her smoking habits. She has ongoing issues regarding her breast mass. Diverticulitis bout seems to resolve. She has a potential cystic mass that is decreasing in size discovered on the CT of the abdomen. I will continue to follow her from the renal side and manage her dialysis accordingly. Primary team is managing her other ongoing issues. Chin Sneed MD [place] [address] CONSULTATION Name: JUANITO YODER Room #: 464-P [facility] IN [facility].#: [id number] Admission: 06/25/20 Attend Phys: Luis Oneill MD Discharge: 06/26/20 Date of : 47 Report #: [id number] <ELECTRONICALLY SIGNED> By: Chin Sneed MD 07/03/20600 4 0 Chin Sneed MD /nt
== END 2020-06-26 18:12 | DRG 600 ==
LOC: ER 14:20 → EROBS 17:06 → 4W 17:06
PROVIDERS: Emergency Medicine; Nurse Practitioner; ADMIT Hospitalist; ATTEND Hospitalist
PROC: 5A1D70Z Performance of Urinary Filtration, Intermittent, Less than 6 Hours Per Day (ICD-10-PCS; principal; 2020-06-26)
DX: N63.20 Unspecified lump in the left breast, unspecified quadrant (principal); N18.6 End stage renal disease; I12.0 Hypertensive chronic kidney disease with stage 5 chronic kidney disease or end stage renal disease; J90 Pleural effusion, not elsewhere classified; R07.89 Other chest pain; I25.10 Atherosclerotic heart disease of native coronary artery without angina pectoris; J44.9 Chronic obstructive pulmonary disease, unspecified; E10.22 Type 1 diabetes mellitus with diabetic chronic kidney disease; E78.5 Hyperlipidemia, unspecified; F32.9 Major depressive disorder, single episode, unspecified; F41.9 Anxiety disorder, unspecified; R53.1 Weakness; E10.42 Type 1 diabetes mellitus with diabetic polyneuropathy; F17.210 Nicotine dependence, cigarettes, uncomplicated; G25.81 Restless legs syndrome; Z66 Do not resuscitate; Z95.1 Presence of aortocoronary bypass graft; Z99.2 Dependence on renal dialysis; Z90.49 Acquired absence of other specified parts of digestive tract; Z79.4 Long term (current) use of insulin; Z79.01 Long term (current) use of anticoagulants; Z79.899 Other long term (current) drug therapy; Z88.5 Allergy status to narcotic agent; Z88.8 Allergy status to other drugs, medicaments and biological substances; Z20.822 Contact with and (suspected) exposure to COVID-19
CPT/HCPCS: 10040; 32100